=== PATIENT | female | born 1940 | race Caucasian/White ===

== ENCOUNTER 2019-12-25 15:28 | Inpatient (IN) | payer OTHER ==
[~2019-12-25] VITALS: Ht 154.9 cm; Wt 66.0 kg
[~2019-12-25 15:28] MED LIST: AML5T PO; DILAUDID PUMP; ESCI5TAB PO; LEVO500T21 PO; LORICET PO; TEMA15CA91 PO; TRAM50TA2 PO; XANAX PO
[2019-12-25] MEDS ORDERED: SODIUM CHLORIDE 0.9% 500 ML IVB ONE (15:56)
[2019-12-25] MEDS ORDERED: MORPHINE SULFATE 4 MG/ML SYR/VIAL IV ONE (16:00)
[2019-12-25] MEDS ORDERED: ONDANSETRON HCL 4 MG/2 ML VIAL IV ONE (16:00)
[2019-12-25 16:24] LABS: Urine Bacteria FEW /hpf (None Seen); Urine Blood Negative /uL (Negative); Urine Hyaline Cast FEW /lpf (0 - 2); Urine Mucus FEW (None Seen); Urine Specific Gravity 1.028 (1.001-1.035); Urine WBC 2 /hpf (0 - 5)
[2019-12-25 16:26] LABS: Basophils # (auto) 0 10 ^3/uL (0-0.2); Basophils % (auto) 0.5 % (0.0-2.0); Eosinophils # (auto) 0.1 10 ^3/uL (0-0.8); Eosinophils % (auto) 1.3 % (0.0-7.0); Hematocrit 41.1 % (36.0-46.0); Hemoglobin 13.9 g/dL (12.2-16.2); Lymphocytes # (auto) 2.3 10 ^3/uL (0.4-5.4); Mean Corpuscular Hemoglobin 30.1 pg (28.0-32.0); Mean Corpuscular Hgb Conc. 33.8 g/dL (32.0-36.0); Mean Corpuscular Volume 89.1 fL (80.0-100.0); Monocytes # (auto) 0.5 10 ^3/uL (0-1.3); Monocytes % (auto) 5.5 % (0.0-12.0); Neutrophils # (auto) 5.6 10 ^3/uL (1.6-8.6); Neutrophils % (auto) 65.7 % (37.0-80.0); Nucleated Red Blood Cells % 0.1 %; Platelet Count (auto) 221 10^3/uL (140-450); Red Blood Cells 4.61 10^6/uL (4.0-5.20); Red Cell Distribution Width 16.1 % (11.8-14.3); White Blood Cell 8.6 10^3/uL (4.4-10.8)
[2019-12-25 16:36] LABS: Albumin 3.8 g/dL (3.4-5.0); Calcium 8.7 mg/dL (8.5-10.1); Potassium 4.2 mmol/L (3.5-5.1)
[2019-12-25 16:41] LABS: Bilirubin, Total 0.3 mg/dL (0.2-1.0); Total Protein 7.3 g/dL (6.4-8.2)
[2019-12-25] MEDS ORDERED: ONDANSETRON HCL 4 MG/2 ML VIAL IV PRN (23:15)
[2019-12-25] MEDS ORDERED: TEMAZEPAM 15 MG CAP PO PRN (23:15)
[2019-12-25] MEDS ORDERED: cloNIDine HCL 0.1 MG TAB PO PRN (23:15)
[2019-12-25] MEDS ORDERED: ACETAMINOPHEN 325 MG TAB PO PRN (23:15)
[2019-12-25 23:44] VITALS: BP 123/59
--- NOTE | 2019-12-25 23:44 | NUR ---
MS admit from [facility] Or[facility] admitted to tele/MS. Patient oriented to DIOGENES CASTLE primary RN, unit, room, bed, and unit policies regarding patient care and visiting hours. Patient weighed by bedscale and encouraged to call if they need something. All questions and concerns addressed, patient verbalized understanding. Bed in lowest locked position, safety precautions in place, call light within reach. Will continue to monitor. Note: Signed: 12/26/19 at 0446 by DIOGENES CASTLE SN <Co-Signature Required> Co-Signed: 12/26/19 at 0446 by Claudia Anderson RN RN
[2019-12-26] VITALS: BP 123/59
[2019-12-26] MEDS ORDERED: POTA10TA51 PO (01:12)
[2019-12-26] MEDS ORDERED: METF-370 PO (01:12)
[2019-12-26] MEDS ORDERED: PERCOT PO (01:12)
[2019-12-26] MEDS ORDERED: SERT-274 PO (01:12)
[2019-12-26] MEDS ORDERED: LISI-648 PO (01:12)
[2019-12-26] MEDS ORDERED: GABA300C10 PO (01:12)
[2019-12-26] MEDS ORDERED: ZINC220C8 PO (01:12)
[2019-12-26] MEDS ORDERED: MULT-1018 PO (01:12)
[2019-12-26] MEDS ORDERED: BACL10TA PO (01:12)
[2019-12-26] MEDS: HYDROcodone-ACET 5/325MG TAB PO PRN ×3 (03:41→14:09)
[2019-12-26 05:00] VITALS: BP 104/47
[2019-12-26 05:44] LABS: Basophils # (auto) 0.1 10 ^3/uL (0-0.2); Basophils % (auto) 0.7 % (0.0-2.0); Eosinophils # (auto) 0.1 10 ^3/uL (0-0.8); Eosinophils % (auto) 1.5 % (0.0-7.0); Hematocrit 36.7 % (36.0-46.0); Hemoglobin 12.1 g/dL (12.2-16.2); Lymphocytes # (auto) 2.1 10 ^3/uL (0.4-5.4); Mean Corpuscular Hemoglobin 29.9 pg (28.0-32.0); Mean Corpuscular Hgb Conc. 33.1 g/dL (32.0-36.0); Mean Corpuscular Volume 90.3 fL (80.0-100.0); Monocytes # (auto) 0.5 10 ^3/uL (0-1.3); Monocytes % (auto) 6.7 % (0.0-12.0); Neutrophils # (auto) 4.7 10 ^3/uL (1.6-8.6); Neutrophils % (auto) 63.1 % (37.0-80.0); Nucleated Red Blood Cells % 0.1 %; Platelet Count (auto) 180 10^3/uL (140-450); Red Blood Cells 4.06 10^6/uL (4.0-5.20); Red Cell Distribution Width 16.7 % (11.8-14.3); White Blood Cell 7.4 10^3/uL (4.4-10.8)
[2019-12-26 06:30] LABS: BUN/Creatinine Ratio 27.3; Calcium 8.2 mg/dL (8.5-10.1); Potassium 3.9 mmol/L (3.5-5.1)
[2019-12-26] MEDS: SODIUM CHLORIDE 0.9% 1,000 ML IV SCH ×2 (07:00→12:53)
[2019-12-26 08:57] VITALS: BP 140/64
[2019-12-26] MEDS: FAMOTIDINE 20 MG TAB PO SCH ×2 (10:00→22:00)
--- NOTE | 2019-12-26 12:10 | NUR ---
transported to radiology via wheel chair no distress noted.
--- NOTE | 2019-12-26 12:30 | NUR ---
RETURNED FROM RADIOLOGY. NO DISTRESS.
[2019-12-26 13:00] VITALS: BP 157/75
--- NOTE | 2019-12-26 16:23 | NUR ---
ss consult Per ss consult advanced directive information. Patient has been provided with advanced directive. Addendum: 12/27/19 at 1623 by Kira ROSENBAUM Amended: Links added.
--- NOTE | 2019-12-26 16:30 | NUR ---
PATIENT SIGNED AMA TO SMOKE.
[2019-12-26 16:46] VITALS: BP 141/73
[2019-12-26] MEDS: OXYCODONE W/ ACETAMINOPHEN 5/325MG TABLET PO PRN ×2 (18:45→22:46)
[2019-12-26 22:00] VITALS: BP 148/72
[2019-12-26] MEDS: LIDOCAINE HCL 2% TOP JELLY 5ML TOP SCH (22:22)
[2019-12-27] MEDS: SODIUM CHLORIDE 0.9% 1,000 ML IV SCH (02:27)
[2019-12-27 05:00] VITALS: BP 165/81
[2019-12-27] MEDS: LIDOCAINE HCL 2% TOP JELLY 5ML TOP SCH (05:32)
[2019-12-27] MEDS: OXYCODONE W/ ACETAMINOPHEN 5/325MG TABLET PO PRN ×2 (06:26→10:30)
[2019-12-27 06:42] LABS: Basophils # (auto) 0.1 10 ^3/uL (0-0.2); Basophils % (auto) 0.9 % (0.0-2.0); Eosinophils # (auto) 0.1 10 ^3/uL (0-0.8); Eosinophils % (auto) 1.3 % (0.0-7.0); Hematocrit 39.1 % (36.0-46.0); Hemoglobin 13.1 g/dL (12.2-16.2); Lymphocytes # (auto) 1.3 10 ^3/uL (0.4-5.4); Lymphocytes % (auto) 21.5 % (10.0-50.0); Mean Corpuscular Hemoglobin 29.8 pg (28.0-32.0); Mean Corpuscular Hgb Conc. 33.6 g/dL (32.0-36.0); Mean Corpuscular Volume 88.9 fL (80.0-100.0); Monocytes # (auto) 0.4 10 ^3/uL (0-1.3); Monocytes % (auto) 5.8 % (0.0-12.0); Neutrophils # (auto) 4.3 10 ^3/uL (1.6-8.6); Neutrophils % (auto) 70.5 % (37.0-80.0); Nucleated Red Blood Cells % 0.1 %; Platelet Count (auto) 186 10^3/uL (140-450); Red Blood Cells 4.39 10^6/uL (4.0-5.20); Red Cell Distribution Width 16.1 % (11.8-14.3); White Blood Cell 6.1 10^3/uL (4.4-10.8)
[2019-12-27 06:58] LABS: Albumin 3.6 g/dL (3.4-5.0); Calcium 9.2 mg/dL (8.5-10.1); Potassium 3.8 mmol/L (3.5-5.1)
[2019-12-27 07:03] LABS: Bilirubin, Total 0.6 mg/dL (0.2-1.0); Total Protein 6.9 g/dL (6.4-8.2)
[2019-12-27 08:59] VITALS: BP 146/76
[2019-12-27] MEDS: FAMOTIDINE 20 MG TAB PO SCH (10:00)
[2019-12-27] MEDS ORDERED: GABA300C10 PO (12:16)
[2019-12-27] MEDS ORDERED: [UNRECOGNIZED DRUG - CODE] TOP (12:16)
[2019-12-27 12:47] VITALS: BP 150/75
--- NOTE | 2019-12-27 14:29 | NUR ---
Discharge instructions given as ordered. Encourage to follow up with PMD as instructed. All questions and concerns addressed. Patient verbalized understanding. IV removed with catheter intact, pressure dressing applied. Patient taken to vehicle via wheelchair with all personal belongings, accompanied by staff. No distress noted at time of departure.
== END 2019-12-27 14:20 | disposition home or self-care (01) | DRG 74 ==
LOC: ER 15:28 → OVERFLOW 15:29 → WEST WING 23:37
PROVIDERS: ADMIT Nurse Practitioner; ATTEND Hospitalist
DX: E11.42 Type 2 diabetes mellitus with diabetic polyneuropathy (principal); K83.8 Other specified diseases of biliary tract; I10 Essential (primary) hypertension; F17.210 Nicotine dependence, cigarettes, uncomplicated; F32.9 Major depressive disorder, single episode, unspecified; F41.9 Anxiety disorder, unspecified; G89.4 Chronic pain syndrome; Z82.3 Family history of stroke; Z82.49 Family history of ischemic heart disease and other diseases of the circulatory system; Z90.49 Acquired absence of other specified parts of digestive tract; Z91.041 Radiographic dye allergy status
CPT/HCPCS: 36415; 74176; 74181; 80048; 80053; 81001; 83690; 85025; 93005; G0378; J2405

== ENCOUNTER → 2020-03-25 | Emergency (ER) | payer OTHER ==
[~2020-03-25] VITALS: Ht 154.9 cm; Wt 68.0 kg
[~2020-03-25] MED LIST changes: -AML5T PO; +BACL10TA PO; -ESCI5TAB PO; +GABA300C10 PO; +HYDROcodone-ACET 10/325MG TAB PO ONE; -LEVO500T21 PO; +LISI-648 PO; -LORICET PO; +METF-370 PO; +MULT-1018 PO; +PERCOT PO; +POTA10TA51 PO; +SERT-274 PO; -TEMA15CA91 PO; -TRAM50TA2 PO; -XANAX PO; +ZINC220C8 PO; +[UNRECOGNIZED DRUG - CODE] TOP
[2020-03-25 14:58] VITALS: BP 135/52
[2020-03-25 16:12] LABS: Urine Bacteria FEW /hpf (None Seen); Urine Blood Negative /uL (Negative); Urine Hyaline Cast FEW /lpf (0 - 2); Urine Mucus FEW (None Seen); Urine Specific Gravity 1.023 (1.001-1.035); Urine WBC 4 /hpf (0 - 5)
== END | disposition home or self-care (01) ==
LOC: ER 14:44
DX: N39.0 Urinary tract infection, site not specified (principal); M54.5 Low back pain; F17.210 Nicotine dependence, cigarettes, uncomplicated; I10 Essential (primary) hypertension; F32.9 Major depressive disorder, single episode, unspecified; Z90.49 Acquired absence of other specified parts of digestive tract; Z79.899 Other long term (current) drug therapy
CPT/HCPCS: 70450; 72125; 72131; 81001; 93005

== ENCOUNTER 2020-07-21 11:51 | Inpatient (IN) | payer OTHER ==
[~2020-07-21] VITALS: Ht 154.9 cm; Wt 72.8 kg
[~2020-07-21 11:51] MED LIST changes: -HYDROcodone-ACET 10/325MG TAB PO ONE
[2020-07-21] MEDS ORDERED: SODIUM CHLORIDE 0.9% 1,000 ML IV ONE (12:30)
[2020-07-21 13:16] LABS: Basophils # (auto) 0.1 10 ^3/uL (0-0.2); Basophils % (auto) 1.1 % (0.0-2.0); Eosinophils # (auto) 0.2 10 ^3/uL (0-0.8); Eosinophils % (auto) 1.9 % (0.0-7.0); Hematocrit 38.8 % (36.0-46.0); Hemoglobin 13.1 g/dL (12.2-16.2); Lymphocytes # (auto) 1.7 10 ^3/uL (0.4-5.4); Lymphocytes % (auto) 19.2 % (10.0-50.0); Mean Corpuscular Hemoglobin 31.4 pg (28.0-32.0); Mean Corpuscular Hgb Conc. 33.7 g/dL (32.0-36.0); Mean Corpuscular Volume 93.1 fL (80.0-100.0); Monocytes # (auto) 0.5 10 ^3/uL (0-1.3); Monocytes % (auto) 5.6 % (0.0-12.0); Neutrophils # (auto) 6.3 10 ^3/uL (1.6-8.6); Neutrophils % (auto) 72.2 % (37.0-80.0); Platelet Count (auto) 242 10^3/uL (140-450); Red Blood Cells 4.17 10^6/uL (4.0-5.20); Red Cell Distribution Width 13.7 % (11.8-14.3); White Blood Cell 8.8 10^3/uL (4.4-10.8)
[2020-07-21 13:30] LABS: INR 0.98 (0.9-1.15); Partial Thromboplastin Time 24.9 sec (23.0-31.2)
[2020-07-21 13:39] LABS: Alanine Aminotransferase 16 U/L (13-56); Alkaline Phosphatase 105 U/L (45-117); Anion Gap 5 (5-15); Aspartate Aminotransferase 11 U/L (15-37); BUN/Creatinine Ratio 18.7; Bilirubin, Total 0.1 mg/dL (0.2-1.0); Blood Urea Nitrogen 14 mg/dL (7-18); Calcium 8.7 mg/dL (8.5-10.1); Carbon Dioxide 31 mmol/L (21-32); Chloride 103 mmol/L (98-107); GFR African American 96 mL/min; GFR Non-African American 80 mL/min; Glucose 112 mg/dL (74-106); Sodium 139 mmol/L (136-145)
[2020-07-21 13:40] LABS: Albumin 3.6 g/dL (3.4-5.0)
[2020-07-21] MEDS ORDERED: NALOXONE HCL 1MG/ML 2ML SYRINGE IV ONE (14:30)
[2020-07-21] MEDS ORDERED: DexAMETHasone SOD PHOS 10MG/1ML VIAL INJ IV ONE (17:45)
[2020-07-21] MEDS ORDERED: FUROSEMIDE 40 MG/4 ML VIAL IV ONE (17:45)
[2020-07-21] MEDS ORDERED: cefTRIAXone 1GM/50ML D5W 50 ML IV ONE (17:45)
[2020-07-21 18:00] VITALS: BP 135/63
[2020-07-21] MEDS ORDERED: MORPHINE SULF INJ 2 MG/ML SYRINGE 1ML IV PRN ×3 (19:00)
[2020-07-21] MEDS ORDERED: FUROSEMIDE 20 MG/2 ML VIAL IV ONE (19:00)
[2020-07-21] MEDS ORDERED: NICOTINE 21MG/24 HR TOPICAL PATCH TD ONE (19:00)
[2020-07-21] MEDS ORDERED: NITROGLYCERIN 0.4 MG SL TAB SL PRN (19:00)
[2020-07-21] MEDS ORDERED: HYDROcodone-ACET 5/325MG TAB PO PRN (19:00)
[2020-07-21] MEDS ORDERED: DEXTROSE (50%) 50ML SYRG IV PRN (19:15)
[2020-07-21] MEDS ORDERED: OXYC325T14 PO (19:30)
[2020-07-21] MEDS ORDERED: SERT-160 PO (19:35)
[2020-07-21] MEDS ORDERED: LISI-706 PO (19:41)
[2020-07-21] MEDS ORDERED: MAGN400T21 PO (19:42)
[2020-07-21] MEDS ORDERED: METO25TA93 PO (19:42)
[2020-07-21] MEDS ORDERED: ONDA-144 PO (19:44)
[2020-07-21] MEDS ORDERED: OMEP-260 PO (19:44)
[2020-07-21] MEDS ORDERED: LIDO5DIS21 TOP (19:47)
[2020-07-21] MEDS: methylPREDNISolone SOD SUCC 40 MG/ML VL IV SCH (21:45)
[2020-07-21] MEDS: GABAPENTIN 300 MG CAP PO SCH (21:45)
[2020-07-21] MEDS: InsuLIN REG 1unit/0.01ml Soln (100units/ml) SC SCH (21:46)
[2020-07-21] MEDS: ACCU-CHEK COMFORT CURVE STRIP VI SCH (21:46)
[2020-07-21] MEDS: BUDESONIDE (INHALATION) 0.5 MG/2 ML NEB NEB SCH (22:00)
[2020-07-22] MEDS: ACCU-CHEK COMFORT CURVE STRIP VI SCH ×4 (05:16→23:20)
[2020-07-22] MEDS: InsuLIN REG 1unit/0.01ml Soln (100units/ml) SC SCH ×4 (05:47→22:00)
[2020-07-22] MEDS: GABAPENTIN 300 MG CAP PO SCH ×3 (05:49→23:04)
[2020-07-22 06:34] LABS: Basophils # (auto) 0 10 ^3/uL (0-0.2); Basophils % (auto) 0.7 % (0.0-2.0); Eosinophils # (auto) 0 10 ^3/uL (0-0.8); Hematocrit 41.8 % (36.0-46.0); Hemoglobin 14.3 g/dL (12.2-16.2); Lymphocytes # (auto) 0.8 10 ^3/uL (0.4-5.4); Lymphocytes % (auto) 11.3 % (10.0-50.0); Mean Corpuscular Hemoglobin 31.9 pg (28.0-32.0); Mean Corpuscular Hgb Conc. 34.2 g/dL (32.0-36.0); Mean Corpuscular Volume 93.2 fL (80.0-100.0); Monocytes # (auto) 0.1 10 ^3/uL (0-1.3); Monocytes % (auto) 1.2 % (0.0-12.0); Neutrophils # (auto) 5.8 10 ^3/uL (1.6-8.6); Neutrophils % (auto) 86.8 % (37.0-80.0); Nucleated Red Blood Cells % 0.1 %; Platelet Count (auto) 231 10^3/uL (140-450); Red Blood Cells 4.48 10^6/uL (4.0-5.20); Red Cell Distribution Width 13.6 % (11.8-14.3); White Blood Cell 6.7 10^3/uL (4.4-10.8)
[2020-07-22 07:10] LABS: Potassium 3.8 mmol/L (3.5-5.1)
[2020-07-22 07:15] LABS: BUN/Creatinine Ratio 27.8; Calcium 9.3 mg/dL (8.5-10.1)
[2020-07-22] MEDS: BUDESONIDE (INHALATION) 0.5 MG/2 ML NEB NEB SCH ×2 (07:49→22:00)
[2020-07-22] MEDS: ALBUTEROL SULF 2.5 MG/0.5ML(0.5%) NEB SOLN NEB SCH ×3 (07:49→18:00)
[2020-07-22 08:59] LABS: Urine Bacteria NONE SEEN /hpf (None Seen); Urine Blood Negative /uL (Negative); Urine Budding Yeast OCCASIONAL /hpf (None Seen); Urine Specific Gravity 1.014 (1.001-1.035); Urine WBC 1 /hpf (0 - 5)
[2020-07-22 09:00] LABS: Alcohol, Urine < 3.0 mg/dL (0-10); Amphetamine Screen, Urine NEGATIVE (NEGATIVE); Barbiturate Scree,Urine NEGATIVE (NEGATIVE); Benzodiazephine Screen, Urine POSITIVE (NEGATIVE); Cannabinoid Screen, Urine NEGATIVE (NEGATIVE); Cocaine Screen, Urine NEGATIVE (NEGATIVE); Opiate Scree,Urine NEGATIVE (NEGATIVE); Phencyclidine Screen, Urine NEGATIVE (NEGATIVE)
[2020-07-22] MEDS: cefTRIAXone 1GM/50ML D5W 50 ML IV SCH (09:00)
[2020-07-22] MEDS: OXYCODONE W/ ACETAMINOPHEN 5/325MG TABLET PO PRN (09:05)
[2020-07-22] MEDS: FAMOTIDINE 20 MG TAB PO SCH (09:46)
[2020-07-22] MEDS: LISINOPRIL 10 MG TAB PO SCH (09:46)
[2020-07-22] MEDS: methylPREDNISolone SOD SUCC 40 MG/ML VL IV SCH ×2 (09:46→23:04)
[2020-07-22] MEDS: ENOXAPARIN SOD 40 MG/0.4 ML SYRINGE SC SCH (09:47)
[2020-07-22] MEDS: AZITHROMYCIN 250 MG TAB PO SCH (10:00)
[2020-07-22] MEDS: NICOTINE 21MG/24 HR TOPICAL PATCH TD SCH (10:14)
[2020-07-22] MEDS: AZITHROMYCIN 500MG/ 250ML 250 ML IV SCH (10:15)
[2020-07-22] MEDS: ONDANSETRON HCL 4 MG/2 ML VIAL IV PRN (13:27)
[2020-07-22] MEDS: IPRATROPIUM BROM 0.5 MG/2.5ML INH SOL NEB SCH ×2 (13:52→18:00)
[2020-07-23] MEDS: OXYCODONE W/ ACETAMINOPHEN 5/325MG TABLET PO PRN ×2 (03:27→09:43)
[2020-07-23] MEDS: ALBUTEROL SULF 2.5 MG/0.5ML(0.5%) NEB SOLN NEB SCH ×3 (06:00→19:02)
[2020-07-23] MEDS: IPRATROPIUM BROM 0.5 MG/2.5ML INH SOL NEB SCH ×3 (06:00→19:02)
[2020-07-23] MEDS: GABAPENTIN 300 MG CAP PO SCH ×3 (06:52→21:49)
[2020-07-23] MEDS: InsuLIN REG 1unit/0.01ml Soln (100units/ml) SC SCH ×4 (07:03→22:10)
[2020-07-23] MEDS: ACCU-CHEK COMFORT CURVE STRIP VI SCH ×4 (07:03→21:49)
[2020-07-23] MEDS: BUDESONIDE (INHALATION) 0.5 MG/2 ML NEB NEB SCH ×2 (09:12→23:11)
[2020-07-23] MEDS: cefTRIAXone 1GM/50ML D5W 50 ML IV SCH (09:43)
[2020-07-23] MEDS: FAMOTIDINE 20 MG TAB PO SCH ×2 (09:43→21:49)
[2020-07-23] MEDS: methylPREDNISolone SOD SUCC 40 MG/ML VL IV SCH ×2 (09:43→21:49)
[2020-07-23] MEDS: ENOXAPARIN SOD 40 MG/0.4 ML SYRINGE SC SCH (09:44)
[2020-07-23] MEDS: LISINOPRIL 10 MG TAB PO SCH (09:44)
[2020-07-23] MEDS: NICOTINE 21MG/24 HR TOPICAL PATCH TD SCH (09:44)
[2020-07-23] MEDS: AZITHROMYCIN 250 MG TAB PO SCH (10:00)
[2020-07-23] MEDS: AZITHROMYCIN 500MG/ 250ML 250 ML IV SCH (11:28)
[2020-07-23] MEDS: MORPHINE SULF INJ 2 MG/ML SYRINGE 1ML IV PRN ×2 (12:58→19:55)
[2020-07-23] MEDS: ONDANSETRON HCL 4 MG/2 ML VIAL IV PRN (15:11)
[2020-07-23 16:00] VITALS: BP 135/79
[2020-07-23] MEDS ORDERED: FUROSEMIDE 20 MG/2 ML VIAL IV ONE (18:00)
[2020-07-23 22:00] VITALS: BP 135/76
[2020-07-23] MEDS: guaiFENesin-DM 100/10mg/5ml SYR PO PRN (22:24)
[2020-07-24] MEDS: MORPHINE SULF INJ 2 MG/ML SYRINGE 1ML IV PRN ×2 (02:35→08:02)
[2020-07-24] MEDS: guaiFENesin-DM 100/10mg/5ml SYR PO PRN ×2 (04:26→11:56)
[2020-07-24 06:00] VITALS: BP 152/78
[2020-07-24 06:20] LABS: Basophils # (auto) 0 10 ^3/uL (0-0.2); Basophils % (auto) 0.1 % (0.0-2.0); Eosinophils # (auto) 0 10 ^3/uL (0-0.8); Hematocrit 36.9 % (36.0-46.0); Hemoglobin 12.7 g/dL (12.2-16.2); Lymphocytes # (auto) 0.7 10 ^3/uL (0.4-5.4); Lymphocytes % (auto) 5.3 % (10.0-50.0); Mean Corpuscular Hgb Conc. 34.4 g/dL (32.0-36.0); Monocytes # (auto) 0.2 10 ^3/uL (0-1.3); Monocytes % (auto) 1.8 % (0.0-12.0); Neutrophils # (auto) 12.2 10 ^3/uL (1.6-8.6); Neutrophils % (auto) 92.8 % (37.0-80.0); Platelet Count (auto) 198 10^3/uL (140-450); Red Blood Cells 3.97 10^6/uL (4.0-5.20); Red Cell Distribution Width 13.4 % (11.8-14.3); White Blood Cell 13.2 10^3/uL (4.4-10.8)
[2020-07-24 06:28] LABS: Albumin 3.2 g/dL (3.4-5.0); Calcium 8.8 mg/dL (8.5-10.1); Magnesium 2.2 mg/dL (1.6-2.6); Potassium 4.1 mmol/L (3.5-5.1)
[2020-07-24] MEDS: ACCU-CHEK COMFORT CURVE STRIP VI SCH ×2 (06:32→11:45)
[2020-07-24] MEDS: GABAPENTIN 300 MG CAP PO SCH ×2 (06:32→14:01)
[2020-07-24 06:33] LABS: Bilirubin, Total 0.2 mg/dL (0.2-1.0); Total Protein 6.4 g/dL (6.4-8.2)
[2020-07-24] MEDS: InsuLIN REG 1unit/0.01ml Soln (100units/ml) SC SCH ×2 (06:33→11:30)
[2020-07-24] MEDS: IPRATROPIUM BROM 0.5 MG/2.5ML INH SOL NEB SCH ×2 (07:21→13:58)
[2020-07-24] MEDS: ALBUTEROL SULF 2.5 MG/0.5ML(0.5%) NEB SOLN NEB SCH ×2 (07:21→13:58)
[2020-07-24] MEDS: ONDANSETRON HCL 4 MG/2 ML VIAL IV PRN (08:02)
[2020-07-24] MEDS: cefTRIAXone 1GM/50ML D5W 50 ML IV SCH (09:00)
[2020-07-24] MEDS: methylPREDNISolone SOD SUCC 40 MG/ML VL IV SCH (09:44)
[2020-07-24] MEDS: NICOTINE 21MG/24 HR TOPICAL PATCH TD SCH (09:46)
[2020-07-24] MEDS: LISINOPRIL 10 MG TAB PO SCH (09:46)
[2020-07-24] MEDS: ENOXAPARIN SOD 40 MG/0.4 ML SYRINGE SC SCH (09:46)
[2020-07-24] MEDS: FAMOTIDINE 20 MG TAB PO SCH (09:47)
[2020-07-24] MEDS: AZITHROMYCIN 250 MG TAB PO SCH (09:47)
[2020-07-24] MEDS: OXYCODONE W/ ACETAMINOPHEN 5/325MG TABLET PO PRN (09:50)
[2020-07-24] MEDS: BUDESONIDE (INHALATION) 0.5 MG/2 ML NEB NEB SCH (10:00)
[2020-07-24 10:21] VITALS: BP 145/80
[2020-07-24 12:00] VITALS: BP 144/73
== END 2020-07-24 15:50 | disposition home or self-care (01) | DRG 193 ==
LOC: ER 11:51 → TELE 18:55 → TELE-CENTR 07-23 09:15
PROVIDERS: ADMIT Nurse Practitioner Acute Care; ATTEND Internal Medicine
PROC: 5A09357 Assistance with Respiratory Ventilation, Less than 24 Consecutive Hours, Continuous Positive Airway Pressure (ICD-10-PCS; principal; 2020-07-21)
DX: J18.9 Pneumonia, unspecified organism (principal); J96.01 Acute respiratory failure with hypoxia; J44.1 Chronic obstructive pulmonary disease with (acute) exacerbation; J98.11 Atelectasis; J44.0 Chronic obstructive pulmonary disease with (acute) lower respiratory infection; G89.29 Other chronic pain; Z20.822 Contact with and (suspected) exposure to COVID-19; E11.9 Type 2 diabetes mellitus without complications; I11.0 Hypertensive heart disease with heart failure; F32.9 Major depressive disorder, single episode, unspecified; I50.9 Heart failure, unspecified; F41.9 Anxiety disorder, unspecified; M54.9 Dorsalgia, unspecified; F17.210 Nicotine dependence, cigarettes, uncomplicated; K21.9 Gastro-esophageal reflux disease without esophagitis; Z79.4 Long term (current) use of insulin; Z79.891 Long term (current) use of opiate analgesic; Z86.12 Personal history of poliomyelitis; Z79.899 Other long term (current) drug therapy; Z80.0 Family history of malignant neoplasm of digestive organs; Z82.3 Family history of stroke; Z82.49 Family history of ischemic heart disease and other diseases of the circulatory system; Z91.041 Radiographic dye allergy status; Z90.49 Acquired absence of other specified parts of digestive tract
CPT/HCPCS: 36415; 36600; 70450; 71045; 74176; 80048; 80053; 80307; 81001; 82805; 82962; 83036; 83735; 83880; 84484; 85025; 85379; 85610; 85730; 87426; 87804; 93005; 93306; 93970; 94640; 94660; 99291; G0378; J0696; J1100; J1815; J2405

== ENCOUNTER 2020-09-10 17:13 | Emergency (ER) | payer OTHER ==
[~2020-09-10] VITALS: Ht 154.9 cm; Wt 68.0 kg
[~2020-09-10 17:13] MED LIST changes: -DILAUDID PUMP; +LIDO5DIS21 TOP; -LISI-648 PO; +LISI-706 PO; +MAGN241.4 PO; +METO25TA93 PO; +OMEP-260 PO; +ONDA-144 PO; +OXYC325T14 PO; -PERCOT PO; -POTA10TA51 PO; +SERT-160 PO; -SERT-274 PO; -[UNRECOGNIZED DRUG - CODE] TOP
[2020-09-10 18:22] LABS: Basophils # (auto) 0.1 10 ^3/uL (0-0.2); Basophils % (auto) 0.8 % (0.0-2.0); Eosinophils # (auto) 0.1 10 ^3/uL (0-0.8); Eosinophils % (auto) 0.9 % (0.0-7.0); Hematocrit 41.8 % (36.0-46.0); Hemoglobin 14.3 g/dL (12.2-16.2); Lymphocytes # (auto) 1.7 10 ^3/uL (0.4-5.4); Lymphocytes % (auto) 15.5 % (10.0-50.0); Mean Corpuscular Hemoglobin 31.9 pg (28.0-32.0); Mean Corpuscular Hgb Conc. 34.3 g/dL (32.0-36.0); Monocytes # (auto) 0.5 10 ^3/uL (0-1.3); Monocytes % (auto) 4.9 % (0.0-12.0); Neutrophils # (auto) 8.7 10 ^3/uL (1.6-8.6); Neutrophils % (auto) 77.9 % (37.0-80.0); Platelet Count (auto) 197 10^3/uL (140-450); Red Cell Distribution Width 13.5 % (11.8-14.3); White Blood Cell 11.2 10^3/uL (4.4-10.8)
[2020-09-10 18:39] LABS: Alanine Aminotransferase 9 U/L (13-56); Albumin 3.3 g/dL (3.4-5.0); Anion Gap 9 (5-15); Aspartate Aminotransferase 7 U/L (15-37); BUN/Creatinine Ratio 12.7; Blood Urea Nitrogen 10 mg/dL (7-18); Calcium 8.4 mg/dL (8.5-10.1); Carbon Dioxide 25 mmol/L (21-32); Chloride 104 mmol/L (98-107); GFR African American 91 mL/min; GFR Non-African American 75 mL/min; Glucose 153 mg/dL (74-106); Magnesium 1.6 mg/dL (1.6-2.6); Potassium 3.2 mmol/L (3.5-5.1); Sodium 138 mmol/L (136-145)
[2020-09-10 18:44] LABS: Alkaline Phosphatase 93 U/L (45-117); Bilirubin, Total 0.3 mg/dL (0.2-1.0); Lactic Acid w/Reflex 3.2 mmol/L (0.4-2.0); Total Protein 6.7 g/dL (6.4-8.2)
[2020-09-10 19:00] LABS: INR 1.01 (0.9-1.15)
[2020-09-10] MEDS ORDERED: LACTATED RINGER'S 500 ML IV ONE (19:15)
[2020-09-10] MEDS ORDERED: POTASSIUM EFFERVESENT TAB 25 MEQ PO ONE (19:15)
[2020-09-10] MEDS ORDERED: LACTATED RINGER'S 1,000 ML IV ONE (19:30)
[2020-09-10] MEDS ORDERED: ACETAMINOPHEN 500 MG TAB PO ONE (21:00)
[2020-09-10 22:00] VITALS: BP 142/72
[2020-09-10 22:38] LABS: Urine Bacteria FEW /hpf (None Seen); Urine Blood Negative /uL (Negative); Urine Mucus FEW (None Seen); Urine Specific Gravity 1.015 (1.001-1.035); Urine WBC 1 /hpf (0 - 5)
== END 2020-09-11 00:54 | disposition home or self-care (01) ==
LOC: ER 17:13
DX: R11.2 Nausea with vomiting, unspecified (principal); R10.9 Unspecified abdominal pain; I10 Essential (primary) hypertension; R06.02 Shortness of breath; F17.210 Nicotine dependence, cigarettes, uncomplicated; Z20.822 Contact with and (suspected) exposure to COVID-19; Z90.49 Acquired absence of other specified parts of digestive tract
CPT/HCPCS: 36415; 71045; 74176; 80053; 81001; 83605; 83735; 83880; 84484; 85025; 85610; 87040; 87426; 93005; 96360; 96361

== ENCOUNTER 2020-11-28 06:50 | Day surgery (SDC) | payer OTHER ==
[~2020-11-28] VITALS: Ht 154.9 cm; Wt 64.0 kg
[~2020-11-28 06:50] MED LIST changes: +ASPI-498 PO; +ATOR20TA50 PO; +FURO20TA3 PO; -LIDO5DIS21 TOP; +LIDO5PAD8 EX; -LISI-706 PO; +LISI-716 PO; -METF-370 PO; +MORP15TA PO; -MULT-1018 PO; +OXYC-963 PO; -OXYC325T14 PO; +POTA-220 PO; -SERT-160 PO; -ZINC220C8 PO
[2020-11-28] MEDS ORDERED: IODIXANOL 320MG/ML 100ML BTL IV ONE (07:21)
[2020-11-28] MEDS ORDERED: LIDOCAINE 2%HCL (LOCAL ANESTH.) INJ 20ML MDV ONE (07:21)
[2020-11-28] MEDS ORDERED: VERAPAMIL 2.5MG/ML INJ 2ML VIAL IV ONE (07:36)
[2020-11-28] MEDS ORDERED: ANGIOMAX 250 MG VIAL IV ONE (07:36)
[2020-11-28] MEDS ORDERED: HEPARIN SODIUM (PORCINE) 5000 UNITS/ML 1ML VIAL ONE (07:36)
[2020-11-28] MEDS ORDERED: SODIUM CHL 0.9% 0 ML ONE (07:37)
[2020-11-28] MEDS ORDERED: methylPREDNISolone SOD SUCC 125 MG/2 ML VL ONE (07:37)
[2020-11-28] MEDS ORDERED: MIDAZOLAM HCL 1MG/1ML-2 ML VIAL ONE (07:37)
[2020-11-28] MEDS ORDERED: diphenhdrAMINE HCL 50 MG/1 ML VL ONE (07:37)
[2020-11-28] MEDS ORDERED: fentaNYL CITRATE 100 MCG/2 ML VL ONE (07:37)
[2020-11-28] MEDS ORDERED: FAMOTIDINE (10MG/ML) 2ML VL IV ONE (07:38)
[2020-11-28] MEDS ORDERED: ACETAMINOPHEN 500 MG TAB PO PRN (08:45)
[2020-11-28] MEDS ORDERED: ONDANSETRON HCL 4 MG/2 ML VIAL IV PRN (08:45)
== END 2020-11-28 11:00 | disposition home or self-care (01) ==
LOC: CATH 06:50
PROVIDERS: ATTEND Internal Medicine Cardiovascular Disease
DX: R94.39 Abnormal result of other cardiovascular function study (principal); E78.5 Hyperlipidemia, unspecified; E11.9 Type 2 diabetes mellitus without complications; I11.0 Hypertensive heart disease with heart failure; E78.00 Pure hypercholesterolemia, unspecified; G89.29 Other chronic pain; F32.9 Major depressive disorder, single episode, unspecified; F41.9 Anxiety disorder, unspecified; F17.200 Nicotine dependence, unspecified, uncomplicated; I25.10 Atherosclerotic heart disease of native coronary artery without angina pectoris; Z20.822 Contact with and (suspected) exposure to COVID-19; Z98.890 Other specified postprocedural states; Z79.899 Other long term (current) drug therapy; Z79.82 Long term (current) use of aspirin; Z90.721 Acquired absence of ovaries, unilateral; Z91.041 Radiographic dye allergy status
CPT/HCPCS: 93458; C1887; C1894; J1200; J1644; J2930; J3010; J3490; Q9967; U0003; 99152; J2250

== ENCOUNTER 2021-01-04 15:22 | Emergency (ER) | payer OTHER ==
[~2021-01-04] VITALS: Ht 154.9 cm; Wt 70.3 kg
[2021-01-04 16:09] LABS: Urine WBC None Seen /hpf (0 - 5)
[2021-01-04 16:09] LABS: Basophils # (auto) 0.1 10 ^3/uL (0-0.2); Basophils % (auto) 0.8 % (0.0-2.0); Eosinophils # (auto) 0.6 10 ^3/uL (0-0.8); Eosinophils % (auto) 6.8 % (0.0-7.0); Hemoglobin 13.3 g/dL (12.2-16.2); Lymphocytes # (auto) 1.9 10 ^3/uL (0.4-5.4); Lymphocytes % (auto) 20.5 % (10.0-50.0); Mean Corpuscular Hemoglobin 31.9 pg (28.0-32.0); Mean Corpuscular Volume 93.7 fL (80.0-100.0); Monocytes # (auto) 0.4 10 ^3/uL (0-1.3); Monocytes % (auto) 4.5 % (0.0-12.0); Neutrophils # (auto) 6.4 10 ^3/uL (1.6-8.6); Neutrophils % (auto) 67.4 % (37.0-80.0); Nucleated Red Blood Cells % 0.1 %; Platelet Count (auto) 179 10^3/uL (140-450); Red Blood Cells 4.16 10^6/uL (4.0-5.20); Red Cell Distribution Width 13.8 % (11.8-14.3); White Blood Cell 9.5 10^3/uL (4.4-10.8)
[2021-01-04 16:21] LABS: Albumin 3.3 g/dL (3.4-5.0); BUN/Creatinine Ratio 9.2; Calcium 8.3 mg/dL (8.5-10.1); Potassium 3.8 mmol/L (3.5-5.1)
[2021-01-04 16:23] LABS: Urine Bacteria FEW /hpf (None Seen); Urine Blood Negative /uL (Negative)
[2021-01-04 16:24] LABS: Bilirubin, Total 0.2 mg/dL (0.2-1.0); Total Protein 6.7 g/dL (6.4-8.2)
[2021-01-04 18:06] LABS: Magnesium 1.8 mg/dL (1.6-2.6)
[2021-01-04] MEDS ORDERED: SODIUM CHLORIDE 0.9% 1,000 ML IV ONE (19:45)
[2021-01-04] MEDS ORDERED: ONDANSETRON HCL 4 MG/2 ML VIAL IV ONE (19:45)
[2021-01-04] MEDS ORDERED: MORPHINE SULF INJ 2 MG/ML SYRINGE 1ML IV ONE (19:45)
[2021-01-05] MEDS ORDERED: MORPHINE SULF INJ 2 MG/ML SYRINGE 1ML IV ONE (02:45)
[2021-01-05 06:01] VITALS: BP 145/60
== END 2021-01-05 06:06 | disposition home or self-care (01) ==
LOC: ER 15:22
DX: R10.84 Generalized abdominal pain (principal); R11.2 Nausea with vomiting, unspecified; F41.9 Anxiety disorder, unspecified; F32.9 Major depressive disorder, single episode, unspecified; I11.0 Hypertensive heart disease with heart failure; I50.9 Heart failure, unspecified; F17.210 Nicotine dependence, cigarettes, uncomplicated; Z88.6 Allergy status to analgesic agent; Z79.82 Long term (current) use of aspirin; Z79.899 Other long term (current) drug therapy; Z90.49 Acquired absence of other specified parts of digestive tract
CPT/HCPCS: 36415; 71045; 74176; 80053; 81001; 83690; 83735; 83880; 84484; 85025; 93005; 96361; 96374; 96375; 96376; 99284; J2270; J2405

== ENCOUNTER 2023-06-10 12:14 | Inpatient (IN) | payer OTHER ==
[~2023-06-10] VITALS: Ht 154.9 cm; Wt 72.7 kg
[~2023-06-10 12:14] MED LIST changes: +GABA-1250 PO; -GABA300C10 PO; -LISI-716 PO; +LISI10TA34 PO; -OMEP-260 PO; +OMEP1CAP70 PO
[2023-06-10 13:33] LABS: Basophils # (auto) 0 10 ^3/uL (0-0.2); Basophils % (auto) 0.6 % (0.0-2.0); Eosinophils # (auto) 0 10 ^3/uL (0-0.8); Eosinophils % (auto) 0.5 % (0.0-7.0); Hematocrit 44.1 % (36.0-46.0); Hemoglobin 14.7 g/dL (12.2-16.2); Lymphocytes # (auto) 0.9 10 ^3/uL (0.4-5.4); Lymphocytes % (auto) 12.5 % (10.0-50.0); Mean Corpuscular Hemoglobin 32.2 pg (28.0-32.0); Mean Corpuscular Hgb Conc. 33.3 g/dL (32.0-36.0); Mean Corpuscular Volume 96.6 fL (80.0-100.0); Monocytes # (auto) 0.4 10 ^3/uL (0-1.3); Monocytes % (auto) 6.5 % (0.0-12.0); Neutrophils # (auto) 5.5 10 ^3/uL (1.6-8.6); Neutrophils % (auto) 79.9 % (37.0-80.0); Red Blood Cells 4.57 10^6/uL (4.0-5.20); Red Cell Distribution Width 15.4 % (11.8-14.3); White Blood Cell 6.9 10^3/uL (4.4-10.8)
[2023-06-10] MEDS ORDERED: FUROSEMIDE 40 MG/4 ML VIAL IV ONE (13:45)
[2023-06-10 13:48] LABS: Alanine Aminotransferase 10 U/L (7-40); Albumin 4.2 g/dL (3.2-4.8); Alkaline Phosphatase 108 U/L (46-116); Anion Gap 4 (5-15); Aspartate Aminotransferase 10 U/L (13-40); BUN/Creatinine Ratio 12.8 (10.0-20.0); Bilirubin, Total 0.4 mg/dL (0.2-1.0); Blood Urea Nitrogen 10 mg/dL (9-23); Carbon Dioxide 33 mmol/L (20-30); Chloride 102 mmol/L (98-107); Glucose 117 mg/dL (74-106); Potassium 3.7 mmol/L (3.5-5.1); Sodium 139 mmol/L (136-145); Total Protein 6.1 g/dL (5.7-8.2)
[2023-06-10 13:49] LABS: INR 1.04 (0.9-1.15); Prothrombin Time 10.9 sec (9.3-11.8)
[2023-06-10] MEDS ORDERED: HYDROcodone-ACET 10/325MG TAB PO ONE (14:45)
[2023-06-10] MEDS ORDERED: methylPREDNISolone SOD SUCC 125 MG/2 ML VL IV ONE (15:15)
[2023-06-10] MEDS ORDERED: ENOXAPARIN SOD 40 MG/0.4 ML SYRINGE SC SCH (15:15)
[2023-06-10 15:40] LABS: Base Excess 3.3 mmol/L (-2.0-2.0)
[2023-06-10 16:09] VITALS: BP 128/84; PULSE 92; RESP 18; TEMP 99.4; O2SAT 92
[2023-06-10 18:00] VITALS: PULSE 64; RESP 16; O2SAT 97
[2023-06-10] MEDS ORDERED: ALBUTEROL MEDNEB 2.5 mg/3ml NEB NEB SCH ×2 (18:00)
[2023-06-10 18:06] VITALS: PULSE 62; RESP 16; O2SAT 99
[2023-06-10 18:10] VITALS: RESP 18; O2SAT 94
[2023-06-10 21:12] LABS: COVID19 ANTIGEN SOFIA FIA NEGATIVE (NEGATIVE); Rapid Influenza A Negative (Negative); Rapid Influenza B Negative (Negative)
[2023-06-10] MEDS ORDERED: IOHEXOL 350 MG/ML 100ML IJ ONE (21:38)
[2023-06-10] MEDS ORDERED: methylPREDNISolone SOD SUCC 125 MG/2 ML VL IV SCH (22:00)
[2023-06-10] MEDS ORDERED: ATORVASTATIN 20 MG TAB PO SCH (22:00)
[2023-06-10] MEDS ORDERED: FUROSEMIDE 20 MG/2 ML VIAL IV SCH (22:00)
[2023-06-10] MEDS ORDERED: ENOXAPARIN SOD 100 MG/1 ML SYRINGE SC SCH (22:00)
[2023-06-10] MEDS ORDERED: HYDROcodone-ACET 5/325MG TAB PO PRN (23:00)
[2023-06-10 23:02] VITALS: BP 137/66; PULSE 65; RESP 17; TEMP 98.1; O2SAT 95
[2023-06-11] MEDS ORDERED: LISINOPRIL 10 MG TAB PO SCH (10:00)
[2023-06-11] MEDS ORDERED: PANTOPRAZOLE 40 MG/10 ML VIAL INJ IV SCH (10:00)
== END 2023-06-11 00:08 | disposition left against medical advice (07) | DRG 291 ==
LOC: EDBD 12:14 → ER 12:14 → TELE 15:12
PROVIDERS: ADMIT Nurse Practitioner Family; ATTEND Nurse Practitioner Family
DX: I11.0 Hypertensive heart disease with heart failure (principal); I50.43 Acute on chronic combined systolic (congestive) and diastolic (congestive) heart failure; J96.01 Acute respiratory failure with hypoxia; F17.210 Nicotine dependence, cigarettes, uncomplicated; F32.A Depression, unspecified; F41.9 Anxiety disorder, unspecified; Z53.29 Procedure and treatment not carried out because of patient's decision for other reasons; Z20.822 Contact with and (suspected) exposure to COVID-19; J44.9 Chronic obstructive pulmonary disease, unspecified; Z80.0 Family history of malignant neoplasm of digestive organs; Z82.3 Family history of stroke; Z82.49 Family history of ischemic heart disease and other diseases of the circulatory system; Z83.3 Family history of diabetes mellitus; Z90.49 Acquired absence of other specified parts of digestive tract; Z88.8 Allergy status to other drugs, medicaments and biological substances
CPT/HCPCS: 36415; 36600; 71045; 80053; 82805; 83880; 84484; 85025; 85379; 85610; 85730; 87426; 87804; 93005; 94640; 99291; G0378

== ENCOUNTER 2024-09-18 02:39 | Inpatient (IN) | payer OTHER ==
[2024-09-18] VITALS (9 sets, daily range): BP systolic 144; BP diastolic 58; PULSE 63–81; RESP 12–26; TEMP 98.2; O2SAT 92–100
[~2024-09-18] VITALS: Ht 154.9 cm; Wt 74.0 kg
[~2024-09-18 02:39] MED LIST changes: +LIDO5PAD12 EX; -LIDO5PAD8 EX
[2024-09-18] MEDS: ALBUTEROL SULF 2.5 MG/0.5ML(0.5%) NEB SOLN NEB ONE (02:45)
[2024-09-18] MEDS: IPRATROPIUM BROM 0.5 MG/2.5ML INH SOL NEB ONE (02:45)
[2024-09-18] MEDS: methylPREDNISolone SOD SUCC 125 MG/2 ML VL IV ONE (03:08)
[2024-09-18] MEDS ORDERED: NITROGLYCERIN 50MG/250ML 250 ML IV ONE (03:15)
--- NOTE | 2024-09-18 03:16 | ED.PDOC ---
SOB-HPI HPI Comments 84-year-old female with a history of CHF, COPD on 4 L home O2, hypertension brought in by EMS from home complaining of shortness of breath of sudden onset about an hour ago. History is limited, as patient is on BiPAP. EMS reports patient had an oxygen saturation in the 70s on room air. She did not respond to an albuterol 2.5 mg with Atrovent 0.5 mg nebulized treatment in the field, so was placed on CPAP for transport with improvement of her oxygen saturation to the 90s. On arrival to the ER, oxygen saturation is 100% on BiPAP. No additional history is obtainable from the patient due to severity. Chief Complaint: Shortness of Breath Time Seen by MD: 02:43 Reviewed notes: Nurses Notes, Rail Technician Notes, Medications, Allergies Information Source: Emergency Med Personnel Mode of Arrival: EMS Severity: Moderate Timing: Hours Duration: Since onset Context: At Rest, Spontaneous Onset Prehospital treatment: 12 Lead EKG, Accucheck, Breathing Tx (DuoNeb), Hospital Cna, C-Pap Past Medical History PAST MEDICAL HISTORY: CHF, COPD, HTN Surgical History: Unobtainable BUSINESS UNIT MANAGER History: Unobtainable Family History Family History: Unobtainable Social History Smoker: Unobtainable Alcohol: Unobtainable Drugs: Unobtainable Lives In: Home Unable to Obtain due to: Other (Comprehensive systems review unobtainable due to severity of symptoms.) All Other Systems: Reviewed and Negative (Comprehensive systems review obtained and negative except for what is stated in the HPI.) Physical Exam General Appearance: Moderate Distress HEENT: PERRL/EOMI Neck: Full Range of Motion, Normal Inspection Respiratory: Accessory Muscle Use, Decreased Breath Sounds, No Accessory Muscle Use, Respiratory Distress, Wheezing Cardiovascular: No Edema, No JVD, Regular Rate/Rhythm Breast Exam: Deferred Gastrointestinal: Non Tender, Soft Genitalia: Deferred Pelvic: Deferred Rectal: Deferred Extremities: Normal range of motion, No pedal edema, Tender (Dorsal aspect bilateral feet) Neurologic: Alert, Other (Moves all extremities. Follows commands. No gross focal deficit.) Cerebellar Function: NOT DONE Reflexes: NOT DONE Skin: Bruises (Dorsal aspect left foot), Dry, Normal Color, Warm Lymphatic: NOT DONE EKG EKG : Comments Sinus rhythm with occasional PACs, rate 75, [place] prolonged at 218, normal QRS interval, QTC prolonged at 483, normal axis, normal QRS, no ST/T changes. Was a procedure done? Was a procedure done?: No Differential Dx Differential Diagnosis: Asthma, Bronchitis, CHF, COPD, Hyperventilation, Panic Attack, Pneumonia, Respiratory Distress, URI X-Ray, Labs, Meds, VS Vital Signs Date Time Temp Pulse Resp B/P (MAP) Pulse Ox O2 Delivery O2 Flow Rate FiO2 09/18/24 04:30 69 19 141/98 09/18/24 04:17 66 120/69 Facial BiPAP Mask 40 09/18/24 04:00 62 09/18/24 04:00 98.9 67 21 148/106 (120) 100 98.9 09/18/24 03:42 124/77 09/18/24 02:54 66 23 100 Bi-Pap+ 100 100 09/18/24 02:53 98.1 66 23 174/84 (114) 100 98.1 09/18/24 02:52 75 09/18/24 02:49 98.2 79 26 195/100 (131) 87 09/18/24 02:45 30 99 Bi-Pap+ 100 100 09/18/24 02:40 78 174/84 Facial BiPAP Mask 100 Lab Test 09/18/24 04:00 09/18/24 03:30 09/18/24 03:15 09/18/24 02:56 Range/Units Troponin I High Sensitivity 7 6 </=34 ng/L Urine Color Light-yellow Yellow Urine Clarity Clear Clear Urine pH 5.5 5.0-9.0 Urine Specific [place] 1.010 1.001-1.035 Urine Protein Negative Negative Urine Ketones Negative Negative Urine Blood Negative Negative /uL Urine Nitrite Negative Negative Urine Bilirubin Negative Negative Urine Urobilinogen Normal Negative mg/dL Urine Leukocyte Esterase Negative Negative /uL Urine RBC <1 0 - 4 /hpf Urine Microscopic WBC 0-5 /HPF Urine Squamous Epithelial Cells None seen <5 /hpf Urine Bacteria None seen None Seen /hpf Urine Hyaline Casts Few 0 - 2 /lpf Urine Glucose Normal Normal mg/dL Blood Gas Specimen Type Arterial Blood Gas Sample Site Right radial Blood Gas Patient Temperature 37.0 Arterial Blood Date Drawn [id number] Arterial Blood pH 7.234 *L 7.350-7.450 Arterial Blood Partial Pressure CO2 72.6 *H 32.0-45.0 mmHg Arterial Blood Partial Pressure O2 324.2 *H 83.0-108.0 mmHg Arterial Blood HCO3 30.0 H 21.0-28.0 mmol/L Arterial Blood Oxygen Saturation 99.2 H 94.0-98.0 % Arterial Blood Base Excess 0.5 -2.0-3.0 mmol/L Arterial Blood Oxyhemoglobin 94.2 94.0-98.0 % Arterial Blood Carboxyhemoglobin 4.6 H 0.5-1.5 % Arterial Blood Methemoglobin 0.4 0.0-1.5 % Pablito Test Yes Blood Gas Total Hemoglobin 13.90 12.0-16.0 g/dL Blood Gas Set Respiration Rate 12.0 Blood Gas Modality Mask - bipap Blood Gas Spontaneous Rate 25 FiO2 % 100.0 Blood Gas Spontaneous Tidal Volume 374 Blood Gas EPAP 7 Blood Gas IPAP 14 Blood Gas Critical Value Read Back Yes Blood Gas Notified Whom Md rosetta wood Blood Gas Notified Time [id number] Blood Gas Notified By Tanker Driver arnulfo luque White Blood Count 16.2 H 4.4-10.8 10^3/uL Red Blood Count 4.05 4.0-5.20 10^6/uL Hemoglobin 13.1 12.2-16.2 g/dL Hematocrit 38.6 36.0-46.0 % Mean Corpuscular Volume 95.4 80.0-100.0 fL Mean Corpuscular Hemoglobin 32.4 H 28.0-32.0 pg Mean Corpuscular Hemoglobin Concent 33.9 32.0-36.0 g/dL Red Cell Distribution Width 13.8 11.8-14.3 % Platelet Count 232 140-450 10^3/uL Mean Platelet Volume 8.6 6.9-10.8 fL Neutrophils (%) (Auto) 81.9 H 37.0-80.0 % Lymphocytes (%) (Auto) 12.5 10.0-50.0 % Monocytes (%) (Auto) 4.6 0.0-12.0 % Eosinophils (%) (Auto) 0.5 0.0-7.0 % Basophils (%) (Auto) 0.5 0.0-2.0 % Neutrophils # (Auto) 13.3 H 1.6-8.6 10 ^3/uL Lymphocytes # (Auto) 2.0 0.4-5.4 10 ^3/uL Monocytes # (Auto) 0.7 0-1.3 10 ^3/uL Eosinophils # (Auto) 0.1 0-0.8 10 ^3/uL Basophils # (Auto) 0.1 0-0.2 10 ^3/uL Nucleated Red Blood Cells 0.0 % Sodium Level 139 136-145 mmol/L Potassium Level 3.6 3.5-5.1 mmol/L Chloride Level 102 98-107 mmol/L Carbon Dioxide Level 31 20-31 mmol/L Anion Gap 6 5-15 Blood Urea Nitrogen 12 9-23 mg/dL Creatinine 0.80 0.550-1.02 mg/dL Glomerular Filtration Rate Calc 74 >90 mL/min BUN/Creatinine Ratio 15.0 10.0-20.0 Serum Glucose 180 H 74-106 mg/dL Calcium Level 9.6 8.7-10.4 mg/dL B-Type Natriuretic Peptide 713.51 0-100 pg/mL Current Medications Medications (Trade) Dose Ordered Sig/Cris Route Start Time Stop Time Status Last Admin Albuterol (Ventolin Medneb) 10 mg ONCE ONCE NEB 09/18/24 02:45 09/18/24 02:47 DC 09/18/24 02:45 Methylprednisolone Sodium Succinate (Solu Medrol) 125 mg ONCE ONCE IV 09/18/24 02:45 09/18/24 02:47 DC 09/18/24 03:08 Ipratropium [place] (Atrovent Medneb) 1 mg ONCE ONCE NEB 09/18/24 02:45 09/18/24 02:54 DC 09/18/24 02:45 Furosemide (Lasix Injection) 40 mg ONCE ONCE IV 09/18/24 03:30 09/18/24 03:31 DC 09/18/24 03:42 Morphine Sulfate 2 mg ONCE ONCE IV 09/18/24 04:15 09/18/24 04:16 DC 09/18/24 04:30 Ondansetron HCl (Zofran) 4 mg ONCE ONCE IV 09/18/24 04:15 09/18/24 04:16 DC 09/18/24 04:30 PROCEDURE(s): CXRP - CHEST PORTABLE REASON: sob ORDER NUMBER(s): [id number], ACCESSION NUMBER(s): [id number] CHEST RADIOGRAPH Indication: sob Technique: Single frontal view of the chest was obtained Comparison: None IMPRESSION: The cardiomediastinal silhouette is enlarged. There is interstitial prominence and coarsened interstitial markings. Mild pulmonary vascular congestion. No sizable effusion or pneumothorax. No discrete focal airspace opacity. X-Ray, Labs, Meds, VS Comment 84-year-old female with a history of CHF, COPD on 4 L home O2, hypertension brought in by EMS from home complaining of shortness of breath of sudden onset about an hour ago. Vitals remarkable for BP 195/100 Exam remarkable for respiratory distress, accessory muscle use, diminished breath sounds, scattered bilateral wheezes Rhythm strip independently interpreted by me: Sinus rhythm with occasional PACs, rate 78, no PVCs. Chest x-ray IMPRESSION: The cardiomediastinal silhouette is enlarged. There is interstitial prominence and coarsened interstitial markings. Mild pulmonary vascular congestion. No sizable effusion or pneumothorax. No discrete focal airspace opacity. CBC remarkable for WBC 16.2, basic metabolic panel remarkable for glucose 180, BNP 713.51, troponin negative Patient treated with the following in the ED: Patient placed on BiPAP, Albuterol 10 mg nebulized in-line treatment, Solu- Medrol 125 mg IV, Nitro-Bid 1 in applied to chest wall, Lasix 40 mg IV On re-evaluation, patient states she is feeling better breathing singh. She does state that she fell 2 days ago and is having bilateral foot pain. Bilateral malka t X-rays were ordered. Plan is to admit the patient for respiratory support and diuresis. Time of 1ST Reevaluation: 03:13 Reevaluation 1ST: Unchanged Patient Education/Counseling: Diagnosis, Treatment Family Education/Counseling: No Family Present Departure 1 Departure Time of Disposition: 03:21 Impression: Primary Impression: [id number] respiratory failure Qualified Codes: J96.20 - Acute and chronic respiratory failure, unspecified whether with hypoxia or hypercapnia Additional Impressions: Acute exacerbation of CHF (congestive heart failure) Qualified Codes: I50.9 - Heart failure, unspecified Acute exacerbation of chronic obstructive pulmonary disease (COPD) Disposition: ADMITTED INPATIENT Admit to: [facility] Condition: Guarded Critical Care Note Critical Care Time?: Yes (45 min-critical care time only) Critical care comment: Critical care time including multiple bedside re-evaluations, review of lab and imaging studies, and discussion of the case with the admitting provider. Patient is high risk for hemodynamic and/or respiratory decompensation. Stability Stability form required: No Heart Score Heart Score: Heart Score Response (Comments) Value History N/A 0 EKG N/A 0 Age N/A 0 Risk Factors N/A 0 Troponin N/A 0 Total 0 I personally scribed for HERBERT LÓPEZ MD ([email or web address]) on 09/18/24 at 03:49. Electronically submitted by George Beltran ([email or web address]). HERBERT LÓPEZ MD Sep 18, 2024 03:16
--- NOTE | 2024-09-18 03:23 | DVH ---
CHEST RADIOGRAPH Indication: sob Technique: Single frontal view of the chest was obtained Comparison: None IMPRESSION: The cardiomediastinal silhouette is enlarged. There is interstitial prominence and coarsened intersti tial markings. Mild pulmonary vascular congestion. No sizable effusion or pneumothorax. No discrete focal airspace opacity.
[2024-09-18 03:33] LABS: Chloride 102 mmol/L (98-107); Potassium 3.6 mmol/L (3.5-5.1); Sodium 139 mmol/L (136-145)
[2024-09-18 03:34] LABS: Anion Gap 6 (5-15); Calcium 9.6 mg/dL (8.7-10.4); Carbon Dioxide 31 mmol/L (20-31)
[2024-09-18 03:39] LABS: Blood Urea Nitrogen 12 mg/dL (9-23)
[2024-09-18 03:40] LABS: Urine Bacteria None Seen /hpf (None Seen)
[2024-09-18] MEDS: FUROSEMIDE 40 MG/4 ML VIAL IV ONE (03:42)
[2024-09-18] MEDS: NITROGLYCERIN 2% OINT 1GM PKG TD ONE (03:43)
[2024-09-18 03:49] LABS: Basophils # (auto) 0.1 10 ^3/uL (0-0.2); Basophils % (auto) 0.5 % (0.0-2.0); Eosinophils # (auto) 0.1 10 ^3/uL (0-0.8); Eosinophils % (auto) 0.5 % (0.0-7.0); Hematocrit 38.6 % (36.0-46.0); Hemoglobin 13.1 g/dL (12.2-16.2); Lymphocytes % (auto) 12.5 % (10.0-50.0); Mean Corpuscular Hemoglobin 32.4 pg (28.0-32.0); Mean Corpuscular Hgb Conc. 33.9 g/dL (32.0-36.0); Mean Corpuscular Volume 95.4 fL (80.0-100.0); Monocytes # (auto) 0.7 10 ^3/uL (0-1.3); Monocytes % (auto) 4.6 % (0.0-12.0); Neutrophils # (auto) 13.3 10 ^3/uL (1.6-8.6); Neutrophils % (auto) 81.9 % (37.0-80.0); Platelet Count (auto) 232 10^3/uL (140-450); Red Blood Cells 4.05 10^6/uL (4.0-5.20); Red Cell Distribution Width 13.8 % (11.8-14.3); White Blood Cell 16.2 10^3/uL (4.4-10.8)
[2024-09-18 03:52] LABS: Urine Blood Negative /uL (Negative); Urine Clarity Clear (Clear); Urine Color Light-Yellow (Yellow); Urine Hyaline Cast FEW /lpf (0 - 2); Urine Protein, UAD Negative (Negative); Urine Squamous Epithelial Cell None Seen /hpf (<5); Urine Urobilinogen Normal (Negative); Urine pH 5.5 (5.0-9.0)
[2024-09-18 03:53] LABS: Glucose 180 mg/dL (74-106)
[2024-09-18 04:24] LABS: Base Excess 0.5 mmol/L (-2.0-3.0)
[2024-09-18] MEDS: ONDANSETRON HCL 4 MG/2 ML VIAL IV ONE (04:30)
[2024-09-18] MEDS: MORPHINE SULFATE INJ 2 MG/ml SYRG IV ONE (04:30)
--- NOTE | 2024-09-18 05:55 | DVH ---
EXAM: XR Left Foot, 2 Views CLINICAL INDICATION: fall, pain TECHNIQUE: Frontal and lateral views of the left foot. COMPARISON: None FINDINGS: BONES/JOINTS: Unremarkable. No acute fracture. No dislocation. SOFT TISSUES: Unremarkable. No radiopaque foreign body. OTHER FINDINGS: . None. IMPRESSION: No acute fracture.
--- NOTE | 2024-09-18 05:55 | DVH ---
EXAM: XR Right Foot, 2 Views CLINICAL INDICATION: fall, pain TECHNIQUE: Frontal and lateral views of the right foot. COMPARISON: None FINDINGS: BONES/JOINTS: Apparent lucency at the base of the 3rd metatarsal could be a nondisplaced fracture. Further evaluation with CT is recommended. No dislocation. SOFT TISSUES: Soft tissue swelling.. No radiopaque foreign body. OTHER FINDINGS: . IMPRESSION: Apparent lucency at the base of the 3rd metatarsal could be a nondisplaced fracture. Further evalua tion with CT is recommended.
--- NOTE | 2024-09-18 06:13 | DVHHPRES ---
History of Present Illness Resident Creating Document: YEYO PEDROZA History of Present Illness This is an 84-year-old female with past medical history of hypertension, CHF, COPD on 4 L of oxygen at home, presented to the ED brought by EMS due to shortness of breath sudden onset 1 hour before coming to the ED. my examination the patient was already on BiPAP in the following ventilatory settings: IPAP 16, EPAP 7, RR 12, FiO2 of 40% saturating 91%. Patient was sleepy unable to provide a clear history and unable to talk due to BiPAP. Patient just stated that lived with her daughter but does not recall phone number and there is no close contact on file yet. Per EMS reports the patient was saturating 70% on room air when found on seen. Initially received albuterol, ipratropium med nebs was initially placed on CPAP while brought to the ED, where her saturation improved in the 90s. On admission, initial CBC showed a WBC of 16.2, hemoglobin of 13.1, BNP was grossly unremarkable, troponins came back negative and BNP was significantly elevated at 713.51. On my examination patient has bilateral crackles on both lung haney but there is no peripheral edema or other signs congestion. Initial chest x-ray show enlarged cardiac silhouette with moderate pulmonary vascular congestion. Blood pressure at this time is in the lower side. We will admit the patient for further assessment and management of CHF exacerbation/COPD exacerbation. Cardiovascular: CHF, HTN Pulmonary: COPD Past Surgical History: None Family History: None Smoke: # pack years ALCOHOL: none Drugs: None Lives: with Family Domestic Violence: Neg Review of Systems Constitutional: No: Fever, Chills, Sweats, Weakness, Malaise, Other Eyes: No: Pain, Vision change, Conjunctivae inflammation, Eyelid inflammation, Other, Redness ENT: No: Ear pain, Ear discharge, Nose pain, Nose discharge, Nose congestion, Mouth pain, Mouth swelling, Throat pain, Throat swelling, Other Respiratory: Shortness of breath, SOB with excertion, Other (crackles); No: Cough, Dry, Wheezing, Hemoptysis, Pleuritic Pain, Sputum, Wheezing Cardiovascular: No: Chest Pain, Palpitations, Orthopnea, Paroxysmal Noc. Dyspnea, Edema, Lt Headedness, Other Gastrointestinal: No: Nausea, Vomiting, Abdominal Pain, Diarrhea, Constipation, Melena, Hematochezia, Other Genitourinary: No Dysuria, No Frequency, No Incontinence, No Hematuria, No Retention, No Other Musculoskeletal: No: other, neck pain, shoulder pain, arm pain, back pain, hand pain, leg pain, foot pain Skin: No: Rash, Lesions, Jaundice, Bruising, Other Neurological: Weakness; No: Numbness, Incoordination, Change in speech, Confusion, Seizures, Other Allergies: Coded Allergies: NO KNOWN ALLERGIES (Unverified , 09/18/24) Exam Vital Signs Vital Signs Date Time Temp Pulse Resp B/P (MAP) Pulse Ox O2 Delivery O2 Flow Rate FiO2 09/18/24 05:00 62 11 147/67 09/18/24 04:17 Facial BiPAP Mask 40 09/18/24 04:00 98.9 100 98.9 General Appearance: Alert, mild distress, Other (Is alert but not oriented in place or time) HEENT: Atraumatic, PERRLA, EOMI, Mucous membr. moist/pink Respiratory: Other (There is bilateral crackles on both lung haney) Cardiovascular: Normal S1, Normal S2, No murmurs, Other (irregular heart rate and rythm) Abdominal: Normal bowel sounds, Soft, No tenderness, No hepatospenomegaly, No masses Extremities: No clubbing, No cyanosis, No edema, Normal pulses, No tenderness/swelling Skin: No rashes, No breakdown, No significant lesion Neuro: Other (Unable to perform at this time due to patient sleepy on BiPAP) Psych/Mental Status: Mental status NL Labs/Xrays Labs Test 09/18/24 04:00 09/18/24 03:30 09/18/24 03:15 09/18/24 02:56 Range/Units Troponin I High Sensitivity 7 </=34 ng/L Urine Color Light-yellow Yellow Urine Clarity Clear Clear Urine pH 5.5 5.0-9.0 Urine Specific [place] 1.010 1.001-1.035 Urine Protein Negative Negative Urine Ketones Negative Negative Urine Blood Negative Negative /uL Urine Nitrite Negative Negative Urine Bilirubin Negative Negative Urine Urobilinogen Normal Negative mg/dL Urine Leukocyte Esterase Negative Negative /uL Urine RBC <1 0 - 4 /hpf Urine Microscopic WBC 0-5 /HPF Urine Squamous Epithelial Cells None seen <5 /hpf Urine Bacteria None seen None Seen /hpf Urine Hyaline Casts Few 0 - 2 /lpf Urine Glucose Normal Normal mg/dL Blood Gas Specimen Type Arterial Blood Gas Sample Site Right radial Blood Gas Patient Temperature 37.0 Arterial Blood Date Drawn [id number] Arterial Blood pH 7.234 *L 7.350-7.450 Arterial Blood Partial Pressure CO2 72.6 *H 32.0-45.0 mmHg Arterial Blood Partial Pressure O2 324.2 *H 83.0-108.0 mmHg Arterial Blood HCO3 30.0 H 21.0-28.0 mmol/L Arterial Blood Oxygen Saturation 99.2 H 94.0-98.0 % Arterial Blood Base Excess 0.5 -2.0-3.0 mmol/L Arterial Blood Oxyhemoglobin 94.2 94.0-98.0 % Arterial Blood Carboxyhemoglobin 4.6 H 0.5-1.5 % Arterial Blood Methemoglobin 0.4 0.0-1.5 % Pablito Test Yes Blood Gas Total Hemoglobin 13.90 12.0-16.0 g/dL Blood Gas Set Respiration Rate 12.0 Blood Gas Modality Mask - bipap Blood Gas Spontaneous Rate 25 FiO2 % 100.0 Blood Gas Spontaneous Tidal Volume 374 Blood Gas EPAP 7 Blood Gas IPAP 14 Blood Gas Critical Value Read Back Yes Blood Gas Notified Whom Md rosetta wood Blood Gas Notified Time [id number] Blood Gas Notified By Skid Worker arnulfo luque White Blood Count 16.2 H 4.4-10.8 10^3/uL Red Blood Count 4.05 4.0-5.20 10^6/uL Hemoglobin 13.1 12.2-16.2 g/dL Hematocrit 38.6 36.0-46.0 % Mean Corpuscular Volume 95.4 80.0-100.0 fL Mean Corpuscular Hemoglobin 32.4 H 28.0-32.0 pg Mean Corpuscular Hemoglobin Concent 33.9 32.0-36.0 g/dL Red Cell Distribution Width 13.8 11.8-14.3 % Platelet Count 232 140-450 10^3/uL Mean Platelet Volume 8.6 6.9-10.8 fL Neutrophils (%) (Auto) 81.9 H 37.0-80.0 % Lymphocytes (%) (Auto) 12.5 10.0-50.0 % Monocytes (%) (Auto) 4.6 0.0-12.0 % Eosinophils (%) (Auto) 0.5 0.0-7.0 % Basophils (%) (Auto) 0.5 0.0-2.0 % Neutrophils # (Auto) 13.3 H 1.6-8.6 10 ^3/uL Lymphocytes # (Auto) 2.0 0.4-5.4 10 ^3/uL Monocytes # (Auto) 0.7 0-1.3 10 ^3/uL Eosinophils # (Auto) 0.1 0-0.8 10 ^3/uL Basophils # (Auto) 0.1 0-0.2 10 ^3/uL Nucleated Red Blood Cells 0.0 % Sodium Level 139 136-145 mmol/L Potassium Level 3.6 3.5-5.1 mmol/L Chloride Level 102 98-107 mmol/L Carbon Dioxide Level 31 20-31 mmol/L Anion Gap 6 5-15 Blood Urea Nitrogen 12 9-23 mg/dL Creatinine 0.80 0.550-1.02 mg/dL Glomerular Filtration Rate Calc 74 >90 mL/min BUN/Creatinine Ratio 15.0 10.0-20.0 Serum Glucose 180 H 74-106 mg/dL Calcium Level 9.6 8.7-10.4 mg/dL B-Type Natriuretic Peptide 713.51 0-100 pg/mL Assessment/Plan Assessment/Plan Assessment/plan Acute hypercapnic respiratory failure likely due to CHF exacerbation Possible COPD exacerbation Possible bacterial gram +/- pneumonia -patient uses 4 L of oxygen at home as a baseline -Currently on BIPAP IPAP 16, EPAP seven, RR 12, FiO2 40% saturating 91% -initial ABG showed pH of 7.23, pCO2 of 72.6, PaO2 of 324.2, HC03 of 30.0 consistent with respiratory acidosis with metabolic alkalosis -initial chest x-ray showed enlarged cardiac silhouette with moderate vascular congestion -BNP is significantly elevated at 713.51 -Trops came back negative -initial WBC is 16.2 -start IV ceftriaxone -start IV azithromycin -Start methylprednisolone 40mg IV daily -Ordered Echocardiogram -EKG showed sinus arrythmia -Start furosemide 20mg IV BID -Acetaminophen and ketorolac for pain modulation -Hold heart failure meds at this point due to BP running in the lower side, start once BP is more stable and Echo is back -Will order a most recent ABG after couple of hours in BIPAP Possible 3rd metatarsal fracture of right foot -R foot xray showing possible fracture of 3rd metatarsal Hyperglycemia, R/O DM -Ordered HbA1c -Monitor Blood glucose Plan discussed with Dr. Freire Plan discussed with: Patient My Orders Orders - YEYO PEDROZA Procedure Category Date Status Time Admit ADMIT 09/18/24 Transmitted 05:34 Code Status CODE 09/18/24 Transmitted 05:34 Vital Signs [facility] 09/18/24 In Process 05:34 Review Orders With [facility] 09/18/24 In Process Adm.Md 05:34 Notify Md Of Changes [facility] 09/18/24 In Process From Base 05:34 Advance Directive [facility] 09/18/24 In Process 05:34 Patient Condition ORDERS 09/18/24 Transmitted 05:34 Allergies DEDE 09/18/24 In Process 05:34 Urinalysis LAB 09/18/24 Logged 05:36 Drug Screen LAB 09/18/24 Logged 05:36 Covid19 Antigen [place] LAB 09/18/24 Logged Rapid Influenza A&B LAB 09/18/24 Logged 05:36 Vitamin B12 LAB 09/18/24 Logged 05:36 Vitamin D, 25-Hydroxy LAB 09/18/24 Logged 05:36 Thyroid Stimulating LAB 09/18/24 Logged Hormone 05:38 PTPTT LAB 09/18/24 Logged 05:38 Echo 2d Mode Cardiac US 09/18/24 Transmitted DOP 05:39 Date of Service: Sep 18, 2024 Billing Provider: KAL FREIRE MD Common Visit Codes: 60783-PEDPVTW INP/OBS CARE (HIGH) Secondary Visit Codes: 08085-VNAUNLNC CARE PLAN 30 MINUTES YEYO PEDROZA RESIDENT Sep 18, 2024 06:12 KAL FREIRE MD Sep 18, 2024 10:21
[2024-09-18] MEDS: cefTRIAXone 1GM/50ML D5W 50 ML IV SCH (06:39)
[2024-09-18 06:43] LABS: INR 1.01 (0.9-1.15); Partial Thromboplastin Time 27.5 SEC (24.5-34.5); Prothrombin Time 10.7 sec (9.3-11.8)
[2024-09-18] MEDS: AZITHROMYCIN 500MG/ 250ML 250 ML IV SCH (07:02)
[2024-09-18 07:10] LABS: Base Excess 4.7 mmol/L (-2.0-3.0)
--- NOTE | 2024-09-18 07:40 | DVHPNRES ---
Progress Note Objective vital signs Vital Sign Date Time Temp Pulse Resp B/P (MAP) Pulse Ox O2 Delivery O2 Flow Rate FiO2 09/18/24 06:10 63 94 Nasal BiPAP Mask 40 09/18/24 06:00 98.2 11 144/58 (86) 98.2 Total Intake and Output 09/17/24 09/17/24 09/18/24 15:00 23:00 07:00 Intake Total 50 ml Output Total 950 ml Balance -900 ml medications Current Medications Medications Dose Ordered Sig/Cris Route Start Time Stop Time Status Last Admin Dose Admin Azithromycin 250 ml @ 125 mls/hr DAILY IV 09/18/24 07:00 09/18/24 07:02 125 MLS/HR Ceftriaxone Sodium 50 ml @ 100 mls/hr DAILY@0900 IV 09/18/24 06:30 09/18/24 06:39 100 MLS/HR Furosemide 20 mg BID IV 09/18/24 10:00 Acetaminophen 650 mg Q6HP PRN PO 09/18/24 06:15 Ketorolac Tromethamine 15 mg Q6HP PRN IV 09/18/24 06:15 09/23/24 06:14 Methylprednisolone Sodium Succinate 40 mg DAILY IV 09/18/24 14:00 Albuterol 2.5 mg Q4HR NEB 09/18/24 10:00 Ipratropium [place] 0.5 mg Q4HR NEB 09/18/24 10:00 laboratory and microbiology Test 09/18/24 06:06 Range/Units Serum Glucose Pending LEILA MARTINEZ RESIDENT Sep 18, 2024 07:40
[2024-09-18] MEDS: KETOROLAC TROMETH 30 MG/ML 1ML VIAL IV PRN (08:29)
[2024-09-18] MEDS: ACETAMINOPHEN 325 MG TAB PO PRN (08:29)
[2024-09-18 08:46] LABS: Anion Gap 7 (5-15); BUN/Creatinine Ratio 12.5 (10.0-20.0); Blood Urea Nitrogen 11 mg/dL (9-23); Calcium 9.6 mg/dL (8.7-10.4); Chloride 102 mmol/L (98-107); Potassium 3.6 mmol/L (3.5-5.1); Sodium 141 mmol/L (136-145)
[2024-09-18 08:46] LABS: Triglycerides 98 mg/dL (< 150)
[2024-09-18 08:47] LABS: Albumin 4.6 g/dL (3.2-4.8); Bilirubin, Total 0.5 mg/dL (0.2-1.0)
[2024-09-18 08:47] LABS: LDL Cholesterol 86 mg/dL (< 100)
[2024-09-18 08:48] LABS: Cholesterol 152 mg/dL (< 200); HDL Cholesterol 54 mg/dL (40-59)
[2024-09-18 08:49] LABS: Carbon Dioxide 32 mmol/L (20-31)
[2024-09-18 08:50] LABS: Alanine Aminotransferase < 9 U/L (7-40); Aspartate Aminotransferase 8 U/L (13-40); Glucose 143 mg/dL (74-106)
[2024-09-18 08:55] LABS: Basophils # (auto) 0 10 ^3/uL (0-0.2); Basophils % (auto) 0.3 % (0.0-2.0); Eosinophils # (auto) 0 10 ^3/uL (0-0.8); Eosinophils % (auto) 0.1 % (0.0-7.0); Hemoglobin 13.5 g/dL (12.2-16.2); Lymphocytes # (auto) 0.3 10 ^3/uL (0.4-5.4); Mean Corpuscular Hemoglobin 31.8 pg (28.0-32.0); Mean Corpuscular Hgb Conc. 33.6 g/dL (32.0-36.0); Mean Corpuscular Volume 94.7 fL (80.0-100.0); Monocytes # (auto) 0.3 10 ^3/uL (0-1.3); Monocytes % (auto) 2.3 % (0.0-12.0); Neutrophils # (auto) 14.1 10 ^3/uL (1.6-8.6); Neutrophils % (auto) 95.3 % (37.0-80.0); Platelet Count (auto) 220 10^3/uL (140-450); Red Blood Cells 4.23 10^6/uL (4.0-5.20); Red Cell Distribution Width 13.8 % (11.8-14.3); White Blood Cell 14.7 10^3/uL (4.4-10.8)
[2024-09-18] MEDS: IPRATROPIUM BROM 0.5 MG/2.5ML INH SOL NEB SCH (09:00)
[2024-09-18] MEDS: ALBUTEROL SULF 2.5 MG/0.5ML(0.5%) NEB SOLN NEB SCH (09:00)
[2024-09-18] MEDS: CYANOCOBALAMIN (B-12) 1000 MCG/1 ML VIAL IM ONE ×2 (09:30→13:09)
[2024-09-18] MEDS ORDERED: ERGOCALCIFEROL 50,000 UNIT(1.25MG) CAP PO SCH (09:30)
[2024-09-18 10:15] LABS: Alkaline Phosphatase 135 U/L (46-116)
[2024-09-18] MEDS: FUROSEMIDE 20 MG/2 ML VIAL IV SCH (10:24)
--- NOTE | 2024-09-18 10:33 | ECG ---
[facility] Test Date: 2024-09-18 Test Time: 02:52:37 Pat Name: JAMAR ALBRIGHT Department: ED Room: 0219T Gender: F Carbon Brush Maker: JULIANN : 1940 Requested By: HERBERT SIDDIQUI Order Number: [id number] Reading MD: Doyle Mckeon Measurements Intervals [place] Rate: 75 P: -49 GA: 218 QRS: 29 QRSD: 80 T: 76 QT: 432 QTc: 483 Interpretive Statements Unknown rhythm, irregular rate Borderline prolonged GA interval Left atrial enlargement Low voltage, extremity leads Electronically Signed On 09-22-2024 17:30:07 PST by Doyle Mckeon Please click the below link to view image of tracing.
--- NOTE | 2024-09-18 10:48 | DVH ---
CLINICAL INFORMATION: Possible stroke. TECHNIQUE: Axial imaging was obtained through the brain without contrast. Coronal and sagittal refor matted images were obtained, reviewed, and stored. Images were reviewed in brain and bone windows. A ll CT scans at this medical facility are performed using dose modulation techniques as appropriate to a performed exam including the following: Automated exposure control was utilized; adjustment of the MA and/or KV according to patient size; and use of iterative reconstruction technique. CTDIvol = 54.23 mGy DLP = 960.24 mGy-cm COMPARISON: None FINDINGS: There is no acute intracranial hemorrhage or extraaxial fluid collection. No mass effect o r midline shift. Scattered areas of hypoattenuation are seen in the periventricular and subcortical w antonietta matter, which are nonspecific but most likely sequelae of small vessel ischemic disease. The jackie tricles and sulci are within normal limits in size for age. Basal cisterns are patent. The calvar ium is unremarkable. Paranasal sinuses and mastoid air cells are clear. IMPRESSION: 1. No acute intracranial hemorrhage. 2. No acute findings are seen on noncontrast enhanced CT. Critical findings Critical Result: Stroke Alert Findings discussed with the patient's RN by Dr. Cotto by phone at 09/18/2024 12:45 PM [employer]OCK [employer], and ac knowledged receipt and understanding of the findings and will notify the patient's physician. ..
[2024-09-18 10:57] LABS: Free T4 (Free Thyroxine) 1.28 ng/dL (0.89-1.76)
[2024-09-18 11:02] LABS: T3 Total 0.97 ng/mL (0.60-1.81)
[2024-09-18 11:41] LABS: COVID19 ANTIGEN SOFIA FIA NEGATIVE (NEGATIVE)
[2024-09-18 11:41] LABS: Rapid Influenza A Negative (Negative); Rapid Influenza B Negative (Negative)
[2024-09-18] MEDS: NICOTINE 21MG/24 HR TOPICAL PATCH TD SCH (13:10)
[2024-09-18] MEDS: ERGOCALCIFEROL 50,000 UNIT(1.25MG) CAP PO SCH (13:10)
[2024-09-18] MEDS: methylPREDNISolone SOD SUCC 40 MG/ML VL IV SCH (14:24)
[2024-09-18] MEDS: SUMAtriptan SUCCINATE 6 MG/0.5 ML VL SC ONE (18:42)
[2024-09-19] VITALS (14 sets, daily range): BP systolic 141–163; BP diastolic 43–81; PULSE 64–155; RESP 16–19; TEMP 36.7; O2SAT 92–98
[2024-09-19] MEDS: LISINOPRIL 5 MG TAB PO SCH (04:35)
[2024-09-19 10:01] LABS: Basophils # (auto) 0 10 ^3/uL (0-0.2); Basophils % (auto) 0.1 % (0.0-2.0); Eosinophils # (auto) 0 10 ^3/uL (0-0.8); Hematocrit 38.8 % (36.0-46.0); Hemoglobin 13.4 g/dL (12.2-16.2); Mean Corpuscular Hemoglobin 32.5 pg (28.0-32.0); Mean Corpuscular Hgb Conc. 34.6 g/dL (32.0-36.0); Mean Corpuscular Volume 93.8 fL (80.0-100.0); Monocytes # (auto) 1.2 10 ^3/uL (0-1.3); Monocytes % (auto) 7.5 % (0.0-12.0); Neutrophils % (auto) 86.4 % (37.0-80.0); Platelet Count (auto) 228 10^3/uL (140-450); Red Blood Cells 4.13 10^6/uL (4.0-5.20); Red Cell Distribution Width 13.8 % (11.8-14.3); White Blood Cell 16.2 10^3/uL (4.4-10.8)
[2024-09-19 10:02] LABS: Anion Gap 7 (5-15); Chloride 101 mmol/L (98-107); Sodium 141 mmol/L (136-145)
[2024-09-19 10:03] LABS: Calcium 9.8 mg/dL (8.7-10.4); Carbon Dioxide 33 mmol/L (20-31); Potassium 3.2 mmol/L (3.5-5.1)
[2024-09-19 10:08] LABS: BUN/Creatinine Ratio 19.5 (10.0-20.0); Blood Urea Nitrogen 16 mg/dL (9-23)
[2024-09-19 10:12] LABS: Glucose 123 mg/dL (74-106)
[2024-09-19 10:44] LABS: Base Excess 9.4 mmol/L (-2.0-3.0)
--- NOTE | 2024-09-19 11:57 | DVHSR ---
APPROVED REPORT EXAM: LIMITED Two-dimensional and M-mode echocardiogram with Doppler and color Doppler. Blood Pressure: 144/58 mmHg INDICATION CHF RISK FACTORS Height: 5'1, Weight: 165 DIMENSIONS LVDd5.0 (3.8-5.7cm)LA (2D)4.5 (1.9-4.0cm)Aortic Root3.2 (2.0-3.7cm) LVDs3.2 (2.5-4.0cm)LA (MM) (1.9-4.0cm)Aortic Cusp Exc1.1 (1.5-2.0cm) EF (%) 60.0 (55-70%)Rt. Atrium3.8 (1.9-4.0cm)Asc. Aorta3.0 cm IVSd1.1 (0.7-1.1cm)RV (D)3.6 (1.8-2.4cm) PWd1.1 (0.7-1.1cm) Mitral Valve MitralMitral Stenosis E wave1.41m/sMV Mean GR.3mmHg A wave0.76m/sMV Peak GR.105mmHg E/A ratio1.92D MVAcm2 DECEL [id number] 1/2 Timems Aortic Valve Aortic ValveAortic Stenosis V11.20m/Sushant Mean GR.10mmHg V22.04m/Sushant Peak GR.17mmHg LVOT Diameter2.1 (1.8-2.4cm)Doppler AVA2.04cm2 Tricuspid Valve TR Velocity2.87m/s [id number] Conclusion Sinus rhythm. Left atrial enlargement. Concentric LVH. Mild thickening of the anterior mitral leaflet EF of 60% with normal RV function. Dopplers unremarkable. No pericardial effusion masses or vegetations.
[2024-09-19] MEDS ORDERED: ALBU108A5 IN (12:51)
[2024-09-19] MEDS ORDERED: METH4PAK PO (12:51)
[2024-09-19] MEDS ORDERED: LEVO500T91 PO (12:51)
[2024-09-19] MEDS ORDERED: ACETAMINOPHEN 325 MG TAB PO PRN (13:00)
[2024-09-19] MEDS: HYDROcodone-ACET 10/325MG TAB PO PRN (13:54)
--- NOTE | 2024-09-19 14:17 | DVHPN2 ---
Progress Note Date Seen: Sep 19, 2024 Has the PT tested + for MRSA If YES, has PT been informed?: No Medical Necessity Reason Pt with a Central, PICC or Fol: No Subjective Patient reports: No new complaints Review of Systems: RESPIRATORY:Abnormal, GI:Normal Objective vital signs Vital Sign Date Time Temp Pulse Resp B/P (MAP) Pulse Ox O2 Delivery O2 Flow Rate FiO2 09/19/24 10:01 143/65 09/19/24 09:54 72 16 97 09/19/24 09:44 Nasal Cannula* 3 32 09/19/24 09:00 98.8 98.8 Total Intake and Output 09/18/24 09/18/24 09/19/24 15:00 23:00 07:00 Intake Total 250 ml Output Total 1000 ml Balance 250 ml -1000 ml medications Current Medications Medications Dose Ordered Sig/Cris Route Start Time Stop Time Status Last Admin Dose Admin Azithromycin 250 ml @ 125 mls/hr DAILY IV 09/18/24 07:00 09/19/24 10:02 125 MLS/HR Ceftriaxone Sodium 50 ml @ 100 mls/hr DAILY@0900 IV 09/18/24 06:30 09/19/24 08:58 100 MLS/HR Furosemide 20 mg BID IV 09/18/24 10:00 09/19/24 10:00 20 MG Ketorolac Tromethamine 15 mg Q6HP PRN IV 09/18/24 06:15 09/23/24 06:14 09/19/24 08:58 15 MG Methylprednisolone Sodium Succinate 40 mg DAILY IV 09/18/24 14:00 09/19/24 10:00 40 MG Albuterol 2.5 mg Q4HR NEB 09/18/24 10:00 09/19/24 09:44 2.5 MG Ipratropium Parker 0.5 mg Q4HR NEB 09/18/24 10:00 09/19/24 09:44 0.5 MG Nicotine 1 patch DAILY TD 09/18/24 10:00 09/19/24 10:03 1 PATCH Ergocalciferol 50,000 unit Q7D PO 09/18/24 13:30 09/18/24 13:10 50,000 UNIT Lisinopril 10 mg DAILY PO 09/19/24 04:30 09/19/24 10:01 10 MG Acetaminophen/ Hydrocodone Bitart 1 tab Q4HP PRN PO 09/19/24 13:00 Acetaminophen 650 mg Q4HP PRN PO 09/19/24 13:00 Examination: GENERAL:Normal, LUNGS:Abnormal, CVS:Normal laboratory and microbiology Laboratory Tests 09/19/24 09:31 Test 09/19/24 09:31 Range/Units Serum Glucose 123 H 74-106 mg/dL Problem List/Assessment/Plan Problem List/Assessment/Plan 1 Acute on chronic respiratory failure 2) COPD exacerbation 3) HTN 4) dCHF 5) R 3rd metatarsal Fx plan; patient transferred to md today after insurance noted to be [facility], now off bipap and on baseline 4L o2 NC, IV Abx, IV steroids, nebs to continue, PT eval pending, foot xray shows R 3rd toe metatarsal fx and podiatry consult was placed however is likely non surgical, AM labs, BCx pending, she may need SNF given weakness on discharge Plan discussed with: Other (n) ELVA MAYA MD Sep 19, 2024 14:17
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
--- NOTE | 2024-09-19 15:33 | DVHDS2 ---
New Physician D'charge PN Admitting Diagnosis Admitting Diagnosis sob Discharge Diagnosis copd acute on chronic respiratory failure Operations or Procedures none Reason(s) For Hospitalization Surgery Hospital Course 84 F who comes to ER c/o of SOB. She normally wears 4L o2 but as per dtr melissa she does not always wear it. on arrival she was noted to be hypoxic and in respiratory acidosis with high pco2. SHe was placed on bipap and eventually her repeat ABG improved and she was taken off bipap and placed on her baseline 4L o2 via NC. She received IV ABx, IV steroids and nebs. Her CXR was clear and showed no PNA or infiltrate. She had an echo done which showed EF 60% and her cardiac enzymes were negative. She had a R foot 3rd metatarsal fx and was seen by podiatry and was recommended for nonsurgical management. She will be dc home on her baseline home o2 4L/min NC and will give PO steroids and PO Abx along with albuterol inhaler for home. Nebulizer machine to be ordered via [facility] and patient counseled on smoking cessation and compliance with home o2. Spoke to daughter Melissa and updated her POC and she understands. Will dc patient home with outpt PCP and pulm follow up. Treatment Plan Discharge Condition of Discharge Good Disposition Home Discharge Instructions Diet: Consistent carbohydrate, Cardiac 2g Na,low cholest Activity: No Restrictions, As Tolerated Medications: see med sheet Follow Up Care Follow Up/Referral: pcp pulm Discharge Statement: "Patient was advised to return to the ER or call 911 if any headaches, dizziness, shortness of breath, chest pain, abdominal pain, bleeding, fevers, or worsening of medical condition. Patient was counseled about treatment plan, medications, possible side effects, patientverbalized understanding. All questions were answered to the best of my ability. This discharge took greater then 30 minutes in planning, reviewing documentation, counseling the patient, and discussing with other team members." ELVA MAYA MD Sep 19, 2024 15:33
== END 2024-09-19 17:45 | disposition home or self-care (01) | DRG 189 ==
LOC: ER 02:39 → EDBD 02:39 → EDUNIT# 05:34 → OVERFLOW 05:34 → TELE-CENTR 09-19 03:26
PROVIDERS: ADMIT Internal Medicine; ATTEND Internal Medicine
PROC: 5A09357 Assistance with Respiratory Ventilation, Less than 24 Consecutive Hours, Continuous Positive Airway Pressure (ICD-10-PCS; principal; 2024-09-18)
DX: J96.22 Acute and chronic respiratory failure with hypercapnia (principal); I50.33 Acute on chronic diastolic (congestive) heart failure; J44.1 Chronic obstructive pulmonary disease with (acute) exacerbation; E87.4 Mixed disorder of acid-base balance; R73.9 Hyperglycemia, unspecified; Z20.822 Contact with and (suspected) exposure to COVID-19; S92.331A Displaced fracture of third metatarsal bone, right foot, initial encounter for closed fracture; W18.39XA Other fall on same level, initial encounter; I11.0 Hypertensive heart disease with heart failure; Z71.6 Tobacco abuse counseling; Z82.49 Family history of ischemic heart disease and other diseases of the circulatory system; Z82.3 Family history of stroke; Z80.0 Family history of malignant neoplasm of digestive organs; Y93.89 Activity, other specified; Y92.89 Other specified places as the place of occurrence of the external cause; Y99.8 Other external cause status; Z88.8 Allergy status to other drugs, medicaments and biological substances
CPT/HCPCS: 36415; 36600; 70450; 71045; 73620; 80048; 80053; 80061; 81001; 82306; 82607; 82805; 83036; 83735; 83880; 84439; 84443; 84480; 84484; 85025; 85379; 85610; 85730; 87040; 87426; 87804; 93005; 93306; 94640; 94660; 96365; 96375; 96376; 99291; G0378; J1885; J2405

== ENCOUNTER 2024-11-27 18:10 | Inpatient (IN) | payer OTHER ==
[~2024-11-27] VITALS: Ht 152.4 cm; Wt 85.9 kg
[2024-11-27] MEDS: SODIUM CHLORIDE 0.9% 1,000 ML IV ONE (02:14)
[~2024-11-27 18:10] MED LIST changes: +ALBU108A5 IN; -ASPI-498 PO; -ATOR20TA50 PO; -BACL10TA PO; -FURO20TA3 PO; -GABA-1250 PO; +LEVO500T91 PO; -LIDO5PAD12 EX; -LISI10TA34 PO; -MAGN241.4 PO; +METH4PAK PO; -METO25TA93 PO; -MORP15TA PO; -OMEP1CAP70 PO; -ONDA-144 PO; -OXYC-963 PO; -POTA-220 PO
--- NOTE | 2024-11-27 18:30 | ED.PDOC ---
History of Present Illness HPI Comments 84-year-old female complains of right ankle pain and swelling for the last 3 days after she [facility] a [facility]. Patient was unable to put weight on the ankle so quick x-ray was done and they suspected that she had a fracture so they called the ambulance. Chief Complaint: Lower Extremity Time Seen by MD: 18:16 Primary Care Provider: Unknown Reviewed Notes: Nurses Notes, Milk Route Supervisor Notes Allergies: Coded Allergies: Iodine (Verified Allergy, Mild, RASH, 11/26/20) Home Meds Active Scripts Albuterol Sulfate (Albuterol Sulfate Hfa) 108 Mcg/Act Aer, 108 MCG IN Q4HPRN PRN, #1 AER Prov:ELVA MAYA MD 09/19/24 Methylprednisolone (Medrol Dosepak) 4 Mg Jhony, 4 MG PO UD, #21 TAB UAD Prov:ELVA MAYA MD 09/19/24 Levofloxacin Hemihydrate (LEVAQUIN 500 MG) 500 Mg Tab, 1 TAB PO DAILY, #7 TAB Prov:ELVA MAYA MD 09/19/24 Information Source: Patient, Emergency Med Personnel Mode of Arrival: EMS Severity: Moderate, Severe Timing: Days Duration: Since onset Past Medical History PAST MEDICAL HISTORY: CHF, COPD, Dementia, HTN Surgical History: Unobtainable 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 Family History Family History: Unobtainable Social History Smoker: Unobtainable Alcohol: Unobtainable Drugs: Unobtainable Lives In: Home Musculoskeletal: reports: joint pain, joint swelling, others (Right ankle swelling and bruising extending to the right foot) Unable to Obtain due to: Dementia Physical Exam General Appearance: Moderate Distress, Obese HEENT: Normal ENT Inspection, Pharynx Normal, TMs Normal Neck: Full Range of Motion, Non-Tender, Normal, Normal Inspection Respiratory: Chest Non-Tender, Lungs Clear, No Accessory Muscle Use, No Respiratory Distress, Normal Breath Sounds Cardiovascular: No Edema, No JVD, No Murmur, No Gallop, Normal Peripheral Pulses, Regular Rate/Rhythm Breast Exam: Deferred Gastrointestinal: No Organomegaly, Non Tender, No Pulsatile Mass, Normal Bowel Sounds, Soft Genitalia: Deferred Pelvic: Deferred Rectal: Deferred Extremities: Other (Right ankle and foot ecchymosis and edema and tenderness at the ankle) Musculoskeletal : Apperance: Normal Neurologic: Alert, tobacco scrap sifter II-XII nml as Tested, No Motor Deficits, Normal Affect, Normal Mood, No Sensory Deficits Cerebellar Function: Normal Reflexes: Normal Skin: Dry, Normal Color, Warm Lymphatic: No Adenopathy Was a procedure done? Was a procedure done?: No Differential Dx Considerations may include: Differential diagnosis includes but not limited to: Bony fracture, dislocation, compartment syndrome, nerve injury, vascular injury and others X-Ray, Labs, Meds, VS Vital Signs Date Time Temp Pulse Resp B/P (MAP) Pulse Ox O2 Delivery O2 Flow Rate FiO2 11/27/24 18:40 97.7 61 18 106/69 (81) 96 97.7 Lab Test 11/27/24 19:03 Range/Units White Blood Count 10.9 H 4.4-10.8 10^3/uL Red Blood Count 3.83 L 4.0-5.20 10^6/uL Hemoglobin 12.4 12.2-16.2 g/dL Hematocrit 36.0 36.0-46.0 % Mean Corpuscular Volume 93.8 80.0-100.0 fL Mean Corpuscular Hemoglobin 32.4 H 28.0-32.0 pg Mean Corpuscular Hemoglobin Concent 34.5 32.0-36.0 g/dL Red Cell Distribution Width 13.7 11.8-14.3 % Platelet Count 248 140-450 10^3/uL Mean Platelet Volume 8.1 6.9-10.8 fL Neutrophils (%) (Auto) 69.3 37.0-80.0 % Lymphocytes (%) (Auto) 20.1 10.0-50.0 % Monocytes (%) (Auto) 7.9 0.0-12.0 % Eosinophils (%) (Auto) 1.4 0.0-7.0 % Basophils (%) (Auto) 1.3 0.0-2.0 % Neutrophils # (Auto) 7.6 1.6-8.6 10 ^3/uL Lymphocytes # (Auto) 2.2 0.4-5.4 10 ^3/uL Monocytes # (Auto) 0.9 0-1.3 10 ^3/uL Eosinophils # (Auto) 0.2 0-0.8 10 ^3/uL Basophils # (Auto) 0.1 0-0.2 10 ^3/uL Nucleated Red Blood Cells 0.2 % Prothrombin Time 10.3 9.3-11.8 sec Prothrombin Time INR 0.97 0.9-1.15 Activated Partial Thromboplast Time 29.2 24.5-34.5 SEC Sodium Level 136 136-145 mmol/L Potassium Level 4.0 3.5-5.1 mmol/L Chloride Level 103 98-107 mmol/L Carbon Dioxide Level 31 20-31 mmol/L Anion Gap 2 L 5-15 Blood Urea Nitrogen 11 9-23 mg/dL Creatinine 0.93 0.550-1.02 mg/dL Glomerular Filtration Rate Calc 61 >90 mL/min BUN/Creatinine Ratio 11.8 10.0-20.0 Serum Glucose 114 H 74-106 mg/dL Calcium Level 9.2 8.7-10.4 mg/dL Total Bilirubin 0.5 0.2-1.0 mg/dL Aspartate Amino Transferase (AST) < 8 L 13-40 U/L Alanine Aminotransferase (ALT) 10 7-40 U/L Alkaline Phosphatase 130 H 46-116 U/L Total Protein 6.2 5.7-8.2 g/dL Albumin 4.1 3.2-4.8 g/dL Time of 1ST Reevaluation: 18:29 Reevaluation 1ST: Unchanged Patient Education/Counseling: Diagnosis, Treatment Family Education/Counseling: No Family Present Departure 1 Departure Time of Disposition: 19:50 Impression: Primary Impression: Closed right ankle fracture Additional Impressions: Closed trimalleolar fracture History of hypertension History of congestive heart failure Disposition: ADMITTED INPATIENT Condition: Guarded Discharged With: Self Comments Right Ankle Pain and Fracture Chief Complaint: Right ankle pain after fall History of Present Illness: 84-year-old female [facility] with [facility] pain following a fall three days ago. [facility] staff noted swelling of the ankle and obtained preliminary X-rays suggesting a possible fracture, prompting transfer to the emergency department for further evaluation. Patient reports ongoing pain in the affected area since the incident. Vital Signs: Noted to be hemodynamically stable, specific values not documented Physical Exam: Musculoskeletal: - Right ankle with significant ecchymosis and swelling - Right foot also noted to have swelling Lab Results: WBC: 11, 000 (mildly elevated) Hemoglobin: 12 Hematocrit: 36 Platelets: 248 Chemistry panel: Within normal limits Imaging and Other Relevant Results: Right ankle, tibia/fibula, and foot X-rays: - Findings consistent with closed trimalleolar fracture of the right ankle Medical Decision Making: Summary Statement: 84-year-old [facility] with right ankle pain and swelling after fall, found to have trimalleolar fracture requiring surgical intervention. Problem List: 1. Right ankle trimalleolar fracture 2. Post-fall injury 3. Mild leukocytosis Differential Diagnosis: 1. Trimalleolar fracture 2. Ankle sprain 3. Ligamentous injury 4. Soft tissue injury ED Course: Patient received fentanyl for pain control. Labs and imaging obtained. Orthopedic consultation requested. Patient stabilized for admission. Assessment and Plan: 1. Right Ankle Trimalleolar Fracture: - Admit to hospital for medical clearance and stabilization - Orthopedic consultation for likely ORIF - Continue pain management as needed - Elevate extremity and ice 2. Mild Leukocytosis: - Likely stress response - Will monitor during admission Billing Information: ICD-10: S82.852A - Trimalleolar fracture of right ankle, initial encounter ICD-10: W19.XXXA - Unspecified fall, initial encounter ICD-10: R72.0 - Elevated white blood cell count Critical Care Note Critical Care Time?: No Stability Stability form required: No Heart Score Heart Score: Heart Score Response (Comments) Value History N/A 0 EKG N/A 0 Age N/A 0 Risk Factors N/A 0 Troponin N/A 0 Total 0 LOUISE AGARWAL MD November 27, 2024 18:30
--- NOTE | 2024-11-27 19:13 | DVH ---
Indication: fall injury Technique: Radiographs of the right ankle, tibia/ fibula and right foot. Comparison: None FINDINGS/IMPRESSION: Fracture of the distal fibular meta diaphysis that is comminuted with approximately 4 mm cortical off set. Displaced fracture medial malleolus with the medial malleolar fracture fragment measuring 15 mm and d emonstrating approximately 7 mm cortical offset. Likely fracture posterior malleolus. Recommend CT right ankle to fully characterize. Fracture of the proximal 3rd metatarsal bone. Dorsal right foot soft tissue edema. Recommend CT of t he right foot to fully evaluate and also exclude any other radiographically occult fractures. Disruption of the ankle mortise with widening of the medial ankle clear space by 15 mm. Anterior wide nelly of the tibiotalar joint by 9 mm. Achilles enthesopathy. Inferior calcaneal spurring. Moderate degenerate changes of the 1st MTP joint. Hallux valgus.
[2024-11-27 19:19] LABS: Basophils # (auto) 0.1 10 ^3/uL (0-0.2); Basophils % (auto) 1.3 % (0.0-2.0); Eosinophils # (auto) 0.2 10 ^3/uL (0-0.8); Eosinophils % (auto) 1.4 % (0.0-7.0); Hemoglobin 12.4 g/dL (12.2-16.2); Lymphocytes # (auto) 2.2 10 ^3/uL (0.4-5.4); Lymphocytes % (auto) 20.1 % (10.0-50.0); Mean Corpuscular Hemoglobin 32.4 pg (28.0-32.0); Mean Corpuscular Hgb Conc. 34.5 g/dL (32.0-36.0); Mean Corpuscular Volume 93.8 fL (80.0-100.0); Monocytes # (auto) 0.9 10 ^3/uL (0-1.3); Monocytes % (auto) 7.9 % (0.0-12.0); Neutrophils # (auto) 7.6 10 ^3/uL (1.6-8.6); Neutrophils % (auto) 69.3 % (37.0-80.0); Nucleated Red Blood Cells % 0.2 %; Platelet Count (auto) 248 10^3/uL (140-450); Red Blood Cells 3.83 10^6/uL (4.0-5.20); Red Cell Distribution Width 13.7 % (11.8-14.3); White Blood Cell 10.9 10^3/uL (4.4-10.8)
[2024-11-27 19:38] LABS: Alanine Aminotransferase 10 U/L (7-40); Albumin 4.1 g/dL (3.2-4.8); Anion Gap 2 (5-15); BUN/Creatinine Ratio 11.8 (10.0-20.0); Blood Urea Nitrogen 11 mg/dL (9-23); Calcium 9.2 mg/dL (8.7-10.4); Carbon Dioxide 31 mmol/L (20-31); Chloride 103 mmol/L (98-107); Total Protein 6.2 g/dL (5.7-8.2)
[2024-11-27 19:39] LABS: Bilirubin, Total 0.5 mg/dL (0.2-1.0)
[2024-11-27 19:40] LABS: Alkaline Phosphatase 130 U/L (46-116); Aspartate Aminotransferase < 8 U/L (13-40); Glucose 114 mg/dL (74-106); Sodium 136 mmol/L (136-145)
[2024-11-27 19:42] LABS: INR 0.97 (0.9-1.15); Partial Thromboplastin Time 29.2 SEC (24.5-34.5); Prothrombin Time 10.3 sec (9.3-11.8)
[2024-11-27] MEDS ORDERED: MORPHINE SULFATE INJ 2 MG/ml SYRG IV PRN (21:45)
[2024-11-27] MEDS ORDERED: NITROGLYCERIN 0.4 MG SL TAB SL PRN (21:45)
[2024-11-28] VITALS (8 sets, daily range): BP systolic 103–137; BP diastolic 50–84; PULSE 62–90; RESP 14–18; TEMP 97.6–98.9; O2SAT 90–95
--- NOTE | 2024-11-28 01:09 | DVHHP2 ---
Admitting Diagnosis: right ankle fracture History of Present Illness HPI 84 y.o. female with COPD, HTN, dementia was brought to the ER c/o right ankle pain. Patient fell 3 days ago and has had right ankle pain since then. XR showed right ankle fracture. Home Meds Active Scripts Albuterol Sulfate (Albuterol Sulfate Hfa) 108 Mcg/Act Aer, 108 MCG IN Q4HPRN PRN, #1 AER Prov:ELVA MAYA MD 09/19/24 Methylprednisolone (Medrol Dosepak) 4 Mg Jhony, 4 MG PO UD, #21 TAB UAD Prov:ELVA MAYA MD 09/19/24 Levofloxacin Hemihydrate (LEVAQUIN 500 MG) 500 Mg Tab, 1 TAB PO DAILY, #7 TAB Prov:ELVA MAYA MD 09/19/24 Past Medical History Cardiac: HTN Pulmonary: COPD Patient Family History: Colon cancer G8 FATHER FHx: cardiovascular disease G8 MOTHER Hypertension G8 FATHER Stroke Unknown Review of Systems Musculoskeletal: Leg pain, Foot pain H&P Exam Vital Signs Vital Signs Date Time Temp Pulse Resp B/P (MAP) Pulse Ox O2 Delivery O2 Flow Rate FiO2 11/27/24 18:40 97.7 61 18 106/69 (81) 96 97.7 General Appeara: Obese Head Exam: Normal inspection Neck Exam: Non-tender Eye Exam: bilateral eye PERRL, bilateral eye EOMI Pulmonary/Respiratory: Lungs clear Cardiovascular/Chest: Regular rate Abdominal Exam: No tenderness Ankle Exam: right ankle Evidence of injury, right ankle Limited range of motion, right ankle Soft tissue tenderness, right ankle Swelling Neuro/Mental St: Alert, Disoriented Labs/Xrays Labs Test 11/27/24 19:03 Range/Units White Blood Count 10.9 H 4.4-10.8 10^3/uL Red Blood Count 3.83 L 4.0-5.20 10^6/uL Hemoglobin 12.4 12.2-16.2 g/dL Hematocrit 36.0 36.0-46.0 % Mean Corpuscular Volume 93.8 80.0-100.0 fL Mean Corpuscular Hemoglobin 32.4 H 28.0-32.0 pg Mean Corpuscular Hemoglobin Concent 34.5 32.0-36.0 g/dL Red Cell Distribution Width 13.7 11.8-14.3 % Platelet Count 248 140-450 10^3/uL Mean Platelet Volume 8.1 6.9-10.8 fL Neutrophils (%) (Auto) 69.3 37.0-80.0 % Lymphocytes (%) (Auto) 20.1 10.0-50.0 % Monocytes (%) (Auto) 7.9 0.0-12.0 % Eosinophils (%) (Auto) 1.4 0.0-7.0 % Basophils (%) (Auto) 1.3 0.0-2.0 % Neutrophils # (Auto) 7.6 1.6-8.6 10 ^3/uL Lymphocytes # (Auto) 2.2 0.4-5.4 10 ^3/uL Monocytes # (Auto) 0.9 0-1.3 10 ^3/uL Eosinophils # (Auto) 0.2 0-0.8 10 ^3/uL Basophils # (Auto) 0.1 0-0.2 10 ^3/uL Nucleated Red Blood Cells 0.2 % Prothrombin Time 10.3 9.3-11.8 sec Prothrombin Time INR 0.97 0.9-1.15 Activated Partial Thromboplast Time 29.2 24.5-34.5 SEC Sodium Level 136 136-145 mmol/L Potassium Level 4.0 3.5-5.1 mmol/L Chloride Level 103 98-107 mmol/L Carbon Dioxide Level 31 20-31 mmol/L Anion Gap 2 L 5-15 Blood Urea Nitrogen 11 9-23 mg/dL Creatinine 0.93 0.550-1.02 mg/dL Glomerular Filtration Rate Calc 61 >90 mL/min BUN/Creatinine Ratio 11.8 10.0-20.0 Serum Glucose 114 H 74-106 mg/dL Calcium Level 9.2 8.7-10.4 mg/dL Total Bilirubin 0.5 0.2-1.0 mg/dL Aspartate Amino Transferase (AST) < 8 L 13-40 U/L Alanine Aminotransferase (ALT) 10 7-40 U/L Alkaline Phosphatase 130 H 46-116 U/L Total Protein 6.2 5.7-8.2 g/dL Albumin 4.1 3.2-4.8 g/dL Assessment/Plan Problem List: (1) Closed right ankle fracture (2) HTN (hypertension) (3) CHF (congestive heart failure) Plan discussed with: Patient PHILIP DE LEON MD November 28, 2024 01:09
[2024-11-28] MEDS: ONDANSETRON HCL 4 MG/2 ML VIAL IV ONE (01:29)
[2024-11-28 01:36] LABS: Urine Bacteria None Seen /hpf (None Seen)
[2024-11-28] MEDS: fentaNYL CITRATE 100 MCG/2 ML VL IV ONE (01:40)
[2024-11-28 01:57] LABS: Urine Blood Negative /uL (Negative); Urine Clarity Clear (Clear); Urine Color Colorless (Yellow); Urine Protein, UAD Negative (Negative); Urine Specific Gravity 1.005 (1.001-1.035); Urine Squamous Epithelial Cell FEW /hpf (<5); Urine Urobilinogen Normal (Negative); Urine pH 6.5 (5.0-9.0)
[2024-11-28 02:00] LABS: Urine WBC < 1 /HPF (0-5)
--- NOTE | 2024-11-28 03:31 | DVH ---
Examination: RANCT CLINICAL INDICATION: right ankle fracture COMPARISON: None. CONTRAST USED: None. TECHNIQUE: Plain CT study of the right ankle was obtained without contrast. Multiplanar reconstructi ons were obtained. CT scan was done using principles of ALARA [as low as reasonably achievable]. FINDINGS: JOINT SPACES: Moderate degenerative changes are noted in the tibiotalar, talofibular, subtalar and i ntertarsal joints. Mild degenerative changes are observed in the tarsometatarsal, metatarsophalangeal and interphalangeal joints. OSSEOUS STRUCTURES AND BONE MARROW: An avulsion fracture is present at the base of the medial malleo john. There is a spiral fracture involving the distal metaphyseal end of the fibula, above the level o f the tibial plafond with lateral angulation of the fracture fragments. A fracture is also noted invo lving the posterior aspect of the tibia (posterior malleolus). No evidence of contusion or avascular necrosis (AVN) is seen. SOFT TISSUES: Diffuse soft tissue edema and hematoma are present around the ankle joint, with subcut aneous edema and fat stranding in the distal one-third of the leg. Diffuse thickening of the Achilles tendon in its mid portion with foci of calcification, suggestive of calcific tendinopathy. Diffuse s ubcutaneous edema and fat stranding are noted on the dorsal aspect of the foot. No obvious drainable collection is identified. Visualized portions of the flexor, extensor and peroneal tendons appear nicolle ssly unremarkable. There is no evidence soft tissue mass identified. ADDITIONAL FINDINGS: CT scan is limited in evaluating meniscal pathology; if meniscal pathology is s uspected and persistent pain is present, further evaluation with MRI of the ankle is suggested. IMPRESSION: 1. Avulsion fracture involving the base of the medial malleolus, and spiral fracture involving the d istal metaphyseal end of the fibula above the level of the tibial plafond with lateral angulation of the fracture fragments. 2. Fracture involving the posterior aspect of the tibia (posterior malleolus). 3. Diffuse soft tissue edema and hematoma around the ankle joint with subcutaneous edema and fat str anding in the distal one-third of the leg. 4. Diffuse thickening of the Achilles tendon with calcific tendinopathy. 5. Moderate degenerative changes in the tibiotalar, talofibular, subtalar and intertarsal joints. Mi ld degenerative changes in the tarsometatarsal, metatarsophalangeal and interphalangeal joints. CT scan is limited in evaluating meniscal pathology. If meniscal pathology is suspected and persisten t pain is present, further evaluation with MRI of the ankle is suggested. Electronically Signed 11/28/2024 03:29 Jhony Leija
[2024-11-28] MEDS: HYDROmorphone HCL 2 MG/ML VL/or syr IV PRN (06:33)
--- NOTE | 2024-11-28 09:08 | DVH ---
EXAM: XY CHEST PORTABLE Indication: pain Technique: Single frontal view of the chest was obtained Comparison: XY CHEST PORTABLE on DOS: 06/10/23, CHEST PORTABLE on DOS: 01/04/21, CHEST XRAY 1 VIEW on DOS: 09/10/20, CHEST PORTABLE on DOS: 07/24/20 FINDINGS: Lines and Tubes: None Lungs: No focal consolidation. Pleura: No effusion. No pneumothorax. Cardiomediastinal contours: Cardiomegaly. Bones: No acute osseous abnormality. IMPRESSION: Cardiomegaly.No acute cardiopulmonary disease.
[2024-11-28 09:19] LABS: Basophils # (auto) 0.1 10 ^3/uL (0-0.2); Basophils % (auto) 0.8 % (0.0-2.0); Eosinophils # (auto) 0.1 10 ^3/uL (0-0.8); Eosinophils % (auto) 1.4 % (0.0-7.0); Hematocrit 36.3 % (36.0-46.0); Lymphocytes # (auto) 1.4 10 ^3/uL (0.4-5.4); Lymphocytes % (auto) 16.5 % (10.0-50.0); Monocytes # (auto) 0.6 10 ^3/uL (0-1.3); Monocytes % (auto) 7.4 % (0.0-12.0); Neutrophils # (auto) 6.4 10 ^3/uL (1.6-8.6); Neutrophils % (auto) 73.9 % (37.0-80.0); Platelet Count (auto) 243 10^3/uL (140-450); Red Blood Cells 3.86 10^6/uL (4.0-5.20); Red Cell Distribution Width 14.2 % (11.8-14.3); White Blood Cell 8.7 10^3/uL (4.4-10.8)
[2024-11-28 09:29] LABS: Albumin 3.7 g/dL (3.2-4.8); Anion Gap 4 (5-15); BUN/Creatinine Ratio 11.8 (10.0-20.0); Bilirubin, Total 0.5 mg/dL (0.2-1.0); Calcium 9.1 mg/dL (8.7-10.4); Carbon Dioxide 29 mmol/L (20-31); Chloride 107 mmol/L (98-107); Glucose 103 mg/dL (74-106); Potassium 4.1 mmol/L (3.5-5.1); Sodium 140 mmol/L (136-145); Total Protein 5.8 g/dL (5.7-8.2)
[2024-11-28 09:31] LABS: INR 0.97 (0.9-1.15); Prothrombin Time 10.3 sec (9.3-11.8)
[2024-11-28 09:34] LABS: Alanine Aminotransferase < 9 U/L (7-40); Alkaline Phosphatase 120 U/L (46-116); Aspartate Aminotransferase < 8 U/L (13-40); Blood Urea Nitrogen 8 mg/dL (9-23)
--- NOTE | 2024-11-28 11:55 | DVHPN2 ---
Reviewed: Care Plan, H&P, Labs, Medications, Previous Orders, Radiology Changes from previous H/P or p: No Changes Objective Vitals Vital Signs Date Time Temp Pulse Resp B/P (MAP) Pulse Ox O2 Delivery O2 Flow Rate FiO2 11/28/24 10:34 71 16 128/59 11/28/24 05:00 98.9 94 98.9 11/28/24 03:41 Nasal Cannula* 4 36 Intake/Output Intake and Output 11/28/24 07:00 Intake Total 350 ml Balance 350 ml Intake Oral 0 ml IV Total 350 ml Medications Current Medications Medications Dose Ordered Sig/Cris Route Start Time Stop Time Status Last Admin Dose Admin Nitroglycerin 0.4 mg Q5MINP PRN SL 11/27/24 21:45 Hydromorphone HCl 1 mg Q4HPRN PRN IV 11/28/24 04:30 11/28/24 10:34 1 MG Laboratory Results Laboratory Tests 11/28/24 08:14 Chemistry Test 11/27/24 19:03 11/28/24 08:14 Albumin 4.1 g/dL (3.2-4.8) 3.7 g/dL (3.2-4.8) Calcium Level 9.2 mg/dL (8.7-10.4) 9.1 mg/dL (8.7-10.4) Total Protein 6.2 g/dL (5.7-8.2) 5.8 g/dL (5.7-8.2) Coagulation Test 11/27/24 19:03 11/28/24 08:14 Prothrombin Time 10.3 sec (9.3-11.8) 10.3 sec (9.3-11.8) Prothrombin Time INR 0.97 (0.9-1.15) 0.97 (0.9-1.15) Activated Partial Thromboplast Time 29.2 SEC (24.5-34.5) LFT Test 11/27/24 19:03 11/28/24 08:14 Alanine Aminotransferase (ALT) 10 U/L (7-40) < 9 U/L (7-40) Alkaline Phosphatase 130 U/L (46-116) H 120 U/L (46-116) H Aspartate Amino Transferase (AST) < 8 U/L (13-40) L < 8 U/L (13-40) L Total Bilirubin 0.5 mg/dL (0.2-1.0) 0.5 mg/dL (0.2-1.0) Urinalysis Test 11/28/24 01:22 Urine Color Colorless (Yellow) Urine Clarity Clear (Clear) Urine pH 6.5 (5.0-9.0) Urine Specific [place] 1.005 (1.001-1.035) Urine Protein Negative (Negative) Urine Ketones Negative (Negative) Urine Blood Negative /uL (Negative) Urine Nitrite Negative (Negative) Urine Bilirubin Negative (Negative) Urine Urobilinogen Normal mg/dL (Negative) Urine Leukocyte Esterase Negative /uL (Negative) Urine RBC None seen /hpf (0 - 4) Urine Microscopic WBC < 1 /HPF (0-5) Urine Squamous Epithelial Cells Few /hpf (<5) Urine Bacteria None seen /hpf (None Seen) Urine Glucose Normal mg/dL (Normal) Labs and/or images reviewed: Labs reviewed by me, Image(s) reviewed by me Assessment/Plan Assessment/Plan Closed fracture right ankle: Pain medication, consult for Dr. Campbell Hypertension COPD Dementia Patient is hospice revoked Cardiology consult for Dr. Adams for preop clearance Plan discussed with: Patient Date of Service: November 28, 2024 Billing Provider: YOLY THOMAS MD Common Visit Codes: [id number] INP/OBS CARE(HIGH) YOLY THOMAS MD November 28, 2024 11:55
--- NOTE | 2024-11-28 14:04 | DVHINCON2 ---
Date of service: November 28, 2024 History of Present Illness 84 yo F with htn on hospice admitted for ortho fx. pt is a poor historian. she has a hx of chf per pt Past Medical History reviewed Family History: Colon cancer G8 FATHER FHx: cardiovascular disease G8 MOTHER Hypertension G8 FATHER Stroke Unknown Allergies: Coded Allergies: Iodine (Verified Allergy, Mild, RASH, 11/26/20) Home Meds Active Scripts Albuterol Sulfate (Albuterol Sulfate Hfa) 108 Mcg/Act Aer, 108 MCG IN Q4HPRN PRN, #1 AER Prov:ELVA MAYA MD 09/19/24 Methylprednisolone (Medrol Dosepak) 4 Mg Jhony, 4 MG PO UD, #21 TAB UAD Prov:ELVA MAYA MD 09/19/24 Levofloxacin Hemihydrate (LEVAQUIN 500 MG) 500 Mg Tab, 1 TAB PO DAILY, #7 TAB Prov:ELVA MAYA MD 09/19/24 Current Medications Current Medications Medications (Trade) Dose Ordered Sig/Cris Route PRN Reason Start Time Stop Time Status Last Admin Nitroglycerin (Ntrostat Sublingual) 0.4 mg Q5MINP PRN SL FOR CHEST PAIN 11/27/24 21:45 Morphine Sulfate 2 mg Q30M PRN IV FOR CHEST PAIN 11/27/24 21:45 11/28/24 04:27 DC Hydromorphone HCl (Dilaudid Injection) 1 mg Q4HPRN PRN IV MODERATE PAIN (4-6 PAIN SCALE) 11/28/24 04:30 11/28/24 10:34 Review of Systems 10 pt ros otherwise negative Vital Signs Vital Signs Date Time Temp Pulse Resp B/P (MAP) Pulse Ox O2 Delivery O2 Flow Rate FiO2 11/28/24 10:34 71 16 128/59 11/28/24 08:00 93 Nasal Cannula* 4 36 11/28/24 05:00 98.9 98.9 Physical Exam nad s1 s2 rrr ctab soft n/nd Labs/Diagnostic Data Labs Test 11/28/24 08:14 11/28/24 01:22 11/27/24 19:03 Range/Units White Blood Count 8.7 4.4-10.8 10^3/uL Red Blood Count 3.86 L 4.0-5.20 10^6/uL Hemoglobin 12.0 L 12.2-16.2 g/dL Hematocrit 36.3 36.0-46.0 % Mean Corpuscular Volume 94.0 80.0-100.0 fL Mean Corpuscular Hemoglobin 31.0 28.0-32.0 pg Mean Corpuscular Hemoglobin Concent 33.0 32.0-36.0 g/dL Red Cell Distribution Width 14.2 11.8-14.3 % Platelet Count 243 140-450 10^3/uL Mean Platelet Volume 8.6 6.9-10.8 fL Neutrophils (%) (Auto) 73.9 37.0-80.0 % Lymphocytes (%) (Auto) 16.5 10.0-50.0 % Monocytes (%) (Auto) 7.4 0.0-12.0 % Eosinophils (%) (Auto) 1.4 0.0-7.0 % Basophils (%) (Auto) 0.8 0.0-2.0 % Neutrophils # (Auto) 6.4 1.6-8.6 10 ^3/uL Lymphocytes # (Auto) 1.4 0.4-5.4 10 ^3/uL Monocytes # (Auto) 0.6 0-1.3 10 ^3/uL Eosinophils # (Auto) 0.1 0-0.8 10 ^3/uL Basophils # (Auto) 0.1 0-0.2 10 ^3/uL Nucleated Red Blood Cells 0.0 % Prothrombin Time 10.3 9.3-11.8 sec Prothrombin Time INR 0.97 0.9-1.15 Sodium Level 140 136-145 mmol/L Potassium Level 4.1 3.5-5.1 mmol/L Chloride Level 107 98-107 mmol/L Carbon Dioxide Level 29 20-31 mmol/L Anion Gap 4 L 5-15 Blood Urea Nitrogen 8 L 9-23 mg/dL Creatinine 0.68 0.550-1.02 mg/dL Glomerular Filtration Rate Calc 87 >90 mL/min BUN/Creatinine Ratio 11.8 10.0-20.0 Serum Glucose 103 74-106 mg/dL Calcium Level 9.1 8.7-10.4 mg/dL Total Bilirubin 0.5 0.2-1.0 mg/dL Aspartate Amino Transferase (AST) < 8 L 13-40 U/L Alanine Aminotransferase (ALT) < 9 7-40 U/L Alkaline Phosphatase 120 H 46-116 U/L Total Protein 5.8 5.7-8.2 g/dL Albumin 3.7 3.2-4.8 g/dL Urine Color Colorless Yellow Urine Clarity Clear Clear Urine pH 6.5 5.0-9.0 Urine Specific [place] 1.005 1.001-1.035 Urine Protein Negative Negative Urine Ketones Negative Negative Urine Blood Negative Negative /uL Urine Nitrite Negative Negative Urine Bilirubin Negative Negative Urine Urobilinogen Normal Negative mg/dL Urine Leukocyte Esterase Negative Negative /uL Urine RBC None seen 0 - 4 /hpf Urine Microscopic WBC < 1 0-5 /HPF Urine Squamous Epithelial Cells Few <5 /hpf Urine Bacteria None seen None Seen /hpf Urine Glucose Normal Normal mg/dL Activated Partial Thromboplast Time 29.2 24.5-34.5 SEC Assessment preop eval hospice eval ortho fx htn Plan/Recommendation check ecg echo in 2020 was normal lvef [facility] 2020 had no cad pending ecg, pt can proceed to OR at acceprtable intermediate risk pending risk eval with her surgical team Plan discussed with: Patient IGNACIO CAN MD November 28, 2024 14:04
--- NOTE | 2024-11-28 18:29 | DVHINCON2 ---
Consult Note Consult Consult Note Referring Service: Emergency Room/Hospitalist Consulting Provider: Orthopedic Surgery Reason for Consult: Evaluation and management of right ankle fracture following ground-level fall --- HISTORY OF PRESENT ILLNESS: The patient is an 84-year-old female admitted following a ground-level fall resulting in right ankle pain and inability to bear weight. She was seen in the emergency department and subsequently admitted for further orthopedic management. No head trauma or loss of consciousness reported. She denies use of anticoagulants. Past medical history is notable for CHF and prior smoking history/COPD. No other significant medical comorbidities reported. Lives at Home with her daughter. Reports Right ankle pain 5-12/25 today, NO OTHER JOINT PAIN REPORTED. --- REVIEW OF SYSTEMS: Constitutional: No fever or chills Cardiovascular: Denies chest pain Respiratory: No shortness of breath GI: Denies nausea or vomiting : No urinary complaints Neurologic: No dizziness or focal deficits reported --- PHYSICAL EXAM: General: Elderly female, alert and oriented, resting in bed, in mild distress secondary to pain Right Ankle: Tenderness to palpation over medial and lateral malleoli Moderate swelling, echymosis and edema No open skin lesions Grossly neurovascularly intact distally: Capillary refill <2 seconds Dorsalis pedis pulse palpable Posterior tibial pulse intact Sensation and motor function intact in foot and toes --- IMAGING: Right ankle X-ray reviewed: Displaced bimalleolar fracture involving medial and lateral malleoli No evidence of dislocation No open fracture visualized --- ASSESSMENT: 84-year-old female with a displaced bimalleolar fracture of the right ankle following a ground-level fall. The patient is neurovascularly intact. Surgical fixation is indicated. --- PLAN: Proceed with open reduction and internal fixation (ORIF) of the right medial and lateral malleoli with Shannan Barbour Surgery scheduled for November 30, 2024 Patient to remain [id number] on the right lower extremity NPO after midnight before surgery Splint applied for immobilization Consent obtained after thorough discussion of risks, benefits, and alternatives with the patient - she understands risks include but not exclusive to bleeding infection nerve injury chronic pain nonunion malunion need for further surgery blood clots cardiac and pulmonary compliactions amputation and . She understands and wishes to proceed with surgery. Pain management coordinated with hospitalist team, Can do trial of Ultram , Advised bedside nurse for monitoring patient for any adverse effects from Pain med use , Vital s/s eval and stop medication if any concerns are noted SCDs initiated for DVT prophylaxis Preoperative labs and medical clearance and optimization for Surgery to be accomplished by Hospital team Plan discussed with: Patient, Other (bedside nurse) Visit Coding Surgery Date of Service if different f: November 28, 2024 Billing Provider: JENSEN MAHAJAN Surgery Visit Codes: 88013 - INP CONSULT <55 MIN JENSEN MAHAJAN November 28, 2024 18:29 LUCERO CANELA MD November 30, 2024 08:07
[2024-11-29 05:00] VITALS: BP 144/66; PULSE 83; RESP 20; TEMP 97.9; O2SAT 94
[2024-11-29 08:00] VITALS: O2SAT 93
--- NOTE | 2024-11-29 10:13 | DVHPN2 ---
Reviewed: Care Plan, H&P, Labs, Medications, Previous Orders, Radiology Changes from previous H/P or p: No Changes Objective Vitals Vital Signs Date Time Temp Pulse Resp B/P (MAP) Pulse Ox O2 Delivery O2 Flow Rate FiO2 11/29/24 08:00 93 Nasal Cannula* 4 36 11/29/24 06:11 83 18 130/70 11/29/24 05:00 97.9 97.9 Intake/Output Intake and Output 11/29/24 07:00 Intake Total 100 ml Balance 100 ml Intake Oral 100 ml # Voids 3 Medications Current Medications Medications Dose Ordered Sig/Cris Route Start Time Stop Time Status Last Admin Dose Admin Nitroglycerin 0.4 mg Q5MINP PRN SL 11/27/24 21:45 Hydromorphone HCl 1 mg Q4HPRN PRN IV 11/28/24 04:30 11/29/24 05:41 1 MG Tramadol HCl 50 mg Q8HP PRN PO 11/28/24 18:15 Laboratory Results Laboratory Tests 11/28/24 08:14 Urinalysis Test 11/28/24 01:22 Urine Color Colorless (Yellow) Urine Clarity Clear (Clear) Urine pH 6.5 (5.0-9.0) Urine Specific [place] 1.005 (1.001-1.035) Urine Protein Negative (Negative) Urine Ketones Negative (Negative) Urine Blood Negative /uL (Negative) Urine Nitrite Negative (Negative) Urine Bilirubin Negative (Negative) Urine Urobilinogen Normal mg/dL (Negative) Urine Leukocyte Esterase Negative /uL (Negative) Urine RBC None seen /hpf (0 - 4) Urine Microscopic WBC < 1 /HPF (0-5) Urine Squamous Epithelial Cells Few /hpf (<5) Urine Bacteria None seen /hpf (None Seen) Urine Glucose Normal mg/dL (Normal) Labs and/or images reviewed: Labs reviewed by me, Image(s) reviewed by me Assessment/Plan Assessment/Plan Closed fracture right ankle: Pain medication, consult for Dr. Campbell appreciated. Planning for surgery on 11/30/2024 Hypertension COPD Dementia History of coronary artery disease Patient is hospice revoked Cardiology Dr. Adams cleared for surgery Daughter Beverly [phone] at bedside Advance care planning time 20 mts Plan discussed with: Patient Date of Service: November 29, 2024 Billing Provider: YOLY THOMAS MD Common Visit Codes: [id number] INP/OBS CARE(HIGH) Secondary Visit Codes: [id number] CARE PLAN 30 MINUTES YOLY THOMAS MD November 29, 2024 10:13
[2024-11-29 13:00] VITALS: BP 132/66; PULSE 73; RESP 17; TEMP 97.6; O2SAT 96
[2024-11-29 17:00] VITALS: BP 142/75; PULSE 71; RESP 18; TEMP 98.4; O2SAT 96
--- NOTE | 2024-11-29 17:49 | DVHSR ---
APPROVED REPORT EXAM: Two-dimensional and M-mode echocardiogram with Doppler and color Doppler. Blood Pressure: 138/63 mmHg INDICATION Pre-Op RISK FACTORS Height: 5', Weight: 186 DIMENSIONS LVDd5.5 (3.8-5.7cm)LA (2D)3.8 (1.9-4.0cm)Aortic Root3.1 (2.0-3.7cm) LVDs3.7 (2.5-4.0cm)LA (MM) (1.9-4.0cm)Aortic Cusp Exc1.4 (1.5-2.0cm) EF (%) 61.0 (55-70%)Rt. Atrium3.4 (1.9-4.0cm)Asc. Aorta cm IVSd0.7 (0.7-1.1cm)RV (D)3.4 (1.8-2.4cm) PWd0.8 (0.7-1.1cm) Mitral Valve MitralMitral Stenosis E wave1.31m/sMV Mean GR.mmHg A wave0.88m/sMV Peak GR.mmHg E/A ratio1.52D MVAcm2 DECEL [id number] 1/2 Timems Aortic Valve Aortic ValveAortic Stenosis V11.09m/Sushant Mean GR.8mmHg V21.87m/Sushant Peak GR.14mmHg LVOT Diameter2.1 (1.8-2.4cm)Doppler AVA2.02cm2 Tricuspid Valve TR Velocity2.24m/s [id number] Other Information Quality : Technically LimitedRhythm : Technically limited study due to body habitus. Conclusion Technically good study. Sinus rhythm. Normal chamber sizes. Mild left atrial enlargement on visual inspection. Valves appear to be structurally normal for the most part. There is mild aortic sclerosis without st enosis. Adequate excursion of a trileaflet aortic valve. The mitral and tricuspid appear to be stru cturally normal without overt calcification or thickening. The pulmonic from the limited views obtai andrea appears to be within normal limits. Left ventricular systolic performance is preserved at 60% with normal right ventricular function. Doppler reveals mild mitral and tricuspid regurgitation. No aortic or pulmonic insufficiency. No pericardial effusion. No intracardiac masses thrombi and or vegetations discernible. Vena cava appears to be within normal limits with adequate collapse.
[2024-11-29 20:00] VITALS: PULSE 77; RESP 20; O2SAT 97
[2024-11-29 21:00] VITALS: BP 149/71; PULSE 77; RESP 20; TEMP 97.8; O2SAT 97
[2024-11-30] VITALS (9 sets, daily range): BP systolic 116–174; BP diastolic 69–87; PULSE 66–101; RESP 16–20; TEMP 97.1–98.2; O2SAT 95–97
[2024-11-30] MEDS: LIDOCAINE 1% HCL (LOCAL ANESTH.) INJ 20ML MDV ONE (07:27)
[2024-11-30] MEDS ORDERED: PHENYLEPHRINE HCL 10 MG/ML VL ONE (07:38)
[2024-11-30] MEDS ORDERED: MIDAZOLAM HCL 2MG/2ML 2ml VIAL (1mg/ml) ONE (08:53)
[2024-11-30] MEDS ORDERED: fentaNYL CITRATE 100 MCG/2 ML VL ONE (08:55)
[2024-11-30] MEDS ORDERED: PROPOFOL 10 MG/ML 20 ML IV ONE (08:56)
[2024-11-30] MEDS: ceFAZolin 2 GM/D5W50ml 50 ML IV ONE (09:00)
[2024-11-30] MEDS: BUPIVACAINE HCL 0.25% P/F 10 ML VIAL ONE (09:39)
--- NOTE | 2024-11-30 09:51 | DVHOP2 ---
Operative Report - 2 Report Details Date: 11/30/24 Preop Diagnosis: Right trimalleolar equivalent ankle fracture Postop Diagnosis: Right trimalleolar equivalent ankle fracture Surgeon: Cristi Campbell MD Transfer And Line Up Worker: Messi FLORES Anesthesiologist: Delisa SANDS Anesthesia: Regional Implant: Adrien Distal fibula plate Arthrex tightrope Ossio medial mal screw Consent: The patient was informed of the risks and benefits of the procedure. These include but are not limited to complications of anesthesia, postoperative infection, incomplete relief of symptoms, recurrence of symptoms, damage to blood vessels, nerves and tendons, deep venous thrombosis, pulmonary embolism and possible need for repeat surgery in the future. Indications for Surgery: right trimalleolar equivalent fracture/dislocation with severe instability Name of Procedure Performed Open reduction internal fixation of right trimallelar ankle fracture without posterior mal fixation; intraop fluoro Procedure Details Procedure Details: HISTORY OF PRESENT ILLNESS: Risks/benefits/options and alternatives were discussed in length. Risks associated with anesthesia, infection, damage to nerves and blood vessels, and bleeding or blood clots. Problems after ankle fracture surgery include ankle joint stiffness, weakness, need for further surgery and arthritis. Possible complications after ankle fracture surgery include infection and problems with healing. PROCEDURE: After all potential complications and risks as well as risks and benefits of the above-mentioned procedure was discussed at length with the patient and family, informed consent was obtained. The lower extremity was then confirmed with the operating surgeon, the patient, the nursing staff and Department of Anesthesia. The patient was then transferred to preoperative area in the Operative Suite and placed on the operating room table in supine position. At this time, the anesthesia was performed. All bony prominences were well padded at this time. A nonsterile tourniquet was placed on the left upper thigh of the patient. sterilely prepped and draped in the usual sterile fashion. The right lower extremity was then elevated and exsanguinated using Esmarch and tourniquet was then placed to 250 mmHg. Next, after all bony and soft tissue landmarks were identified, a 6 cm longitudinal incision was made directly over the lateral mal fracture on the right ankle. A sharp dissection was carefully taken down to the level of bone taking care to protect the neurovascular structures. Once the bone was reached, the fractured site was identified. The bony ends were then opened and divided of all hematoma as well as excess periosteum within the fracture site. For the lateral side he had a posterior comminution with a distal diagonal fracture. With manual traction and manipulation with bone reduction clamps we were able to reduce patient fracture. Intraoperative fluoroscopy confirmed reduction. A Fibula plate was then selected for instrumentation with nonlocking/locking through the nail to reduce posterior butterfly fragment. Next Fluorsocpy was used to visualize the hardware placement as well as the fracture reduction appeared to be in good anatomic position, all hardware was in good position. There was lateralization of the so we placed a tightrope based on fluoro tightening. a 1 cm incision made over medial mal. I then placed a medial mal ossio screw at fracture site. Again, Fluoro scan was brought in to confirm placement of the screws. They were in good overall position and there was no lateralization of the joint. At this time, each wound was copiously irrigated and suctioned dry. The wounds were then closed using #2-0 Vicryl suture in subcutaneous fashion followed by 3-0 nylon on the skin. A sterile dressing was applied consistent with Adaptic, 4x4s, Kerlix, and Webril. An ankle splint was then placed on the right lower extremity. The patient was transferred back to the [facility] and to the Postanesthetic Care Unit. The patient tolerated the procedure well. There were no complications. Condition Good Disposition Still a Patient CRISTI CAMPBELL MD November 30, 2024 09:51
[2024-11-30] MEDS ORDERED: ACETAMINOPHEN IV 1000 MG/100ML (10MG/ML) IV PRN (10:15)
[2024-11-30] MEDS: ONDANSETRON HCL 4 MG/2 ML VIAL IV ONE (10:15)
[2024-11-30] MEDS ORDERED: HYDROmorphone HCL 2 MG/ML VL/or syr IV PRN (10:15)
--- NOTE | 2024-11-30 10:27 | DVHPN2 ---
Reviewed: Care Plan, H&P, Labs, Medications, Previous Orders, Radiology Changes from previous H/P or p: No Changes Objective Vitals Vital Signs Date Time Temp Pulse Resp B/P (MAP) Pulse Ox O2 Delivery O2 Flow Rate FiO2 11/30/24 10:05 Room Air 96 11/30/24 10:05 96 11/30/24 09:00 98.0 85 16 159/87 (111) 98.0 11/29/24 20:00 4 Intake/Output Intake and Output 11/30/24 07:00 Intake Total 350 ml Balance 350 ml Intake Oral 350 ml # Voids 3 # Bowel Movements 2 Medications Current Medications Medications Dose Ordered Sig/Cris Route Start Time Stop Time Status Last Admin Dose Admin Nitroglycerin 0.4 mg Q5MINP PRN SL 11/27/24 21:45 Hydromorphone HCl 1 mg Q4HPRN PRN IV 11/28/24 04:30 11/30/24 01:17 1 MG Tramadol HCl 50 mg Q8HP PRN PO 11/28/24 18:15 Cefazolin Sodium 50 ml @ 100 mls/hr Q8HR IV 11/30/24 14:00 12/01/24 06:29 Acetaminophen 1,000 mg [id number] PRN IV 11/30/24 10:15 11/30/24 10:16 UNV Hydromorphone HCl 0.5 mg Q10M PRN IV 11/30/24 10:15 11/30/24 10:56 UNV Laboratory Results Laboratory Tests 11/28/24 08:14 Urinalysis Test 11/28/24 01:22 Urine Color Colorless (Yellow) Urine Clarity Clear (Clear) Urine pH 6.5 (5.0-9.0) Urine Specific [place] 1.005 (1.001-1.035) Urine Protein Negative (Negative) Urine Ketones Negative (Negative) Urine Blood Negative /uL (Negative) Urine Nitrite Negative (Negative) Urine Bilirubin Negative (Negative) Urine Urobilinogen Normal mg/dL (Negative) Urine Leukocyte Esterase Negative /uL (Negative) Urine RBC None seen /hpf (0 - 4) Urine Microscopic WBC < 1 /HPF (0-5) Urine Squamous Epithelial Cells Few /hpf (<5) Urine Bacteria None seen /hpf (None Seen) Urine Glucose Normal mg/dL (Normal) Labs and/or images reviewed: Labs reviewed by me, Image(s) reviewed by me Assessment/Plan Assessment/Plan Closed fracture right ankle: Pain medication, consult for Dr. Campbell appreciated. Status post Open reduction internal fixation of right trimallelar ankle fracture by Dr Campbell on 11-30-24 Hypertension COPD Dementia History of coronary artery disease Patient is hospice revoked Cardiology Dr. Adams cleared for surgery Daughter Beverly [phone] at bedside Physical therapy ordered Plan discussed with: Patient Date of Service: November 30, 2024 Billing Provider: YOLY THOMAS MD Common Visit Codes: [id number] INP/OBS CARE(HIGH) YOLY THOMAS MD November 30, 2024 10:27
--- NOTE | 2024-11-30 10:42 | DVH ---
FLUOROSCOPY TIME: 17 seconds TECHNIQUE: Intraoperative radiographs of the right ankle were obtained. COMPARISON: None FINDINGS: Refer to intraoperative report for further evaluation. IMPRESSION: Refer to intraoperative report for further evaluation.
[2024-11-30] MEDS: ceFAZolin 1GM/50ML 50 ML IV SCH (14:16)
[2024-11-30] MEDS: traMADol HCL 50 MG TAB PO PRN (14:20)
[2024-11-30] MEDS: hydrALAZINE HCL 20 MG/ML VL IV PRN (17:33)
[2024-12-01] VITALS (8 sets, daily range): BP systolic 127–158; BP diastolic 65–78; PULSE 84–104; RESP 17–20; TEMP 97.4–98.5; O2SAT 92–99
[2024-12-01 02:43] LABS: COVID19 ANTIGEN SOFIA FIA NEGATIVE (NEGATIVE)
--- NOTE | 2024-12-01 10:56 | DVHPN2 ---
Reviewed: Care Plan, H&P, Labs, Medications, Previous Orders, Radiology Changes from previous H/P or p: No Changes Objective Vitals Vital Signs Date Time Temp Pulse Resp B/P (MAP) Pulse Ox O2 Delivery O2 Flow Rate FiO2 12/01/24 10:02 86 20 147/70 12/01/24 09:00 98.4 96 98.4 12/01/24 08:00 Nasal Cannula* 4 36 Intake/Output Intake and Output 12/01/24 07:00 Intake Total 1125 ml Balance 1125 ml Intake Oral 1000 ml IV Total 125 ml # Voids 5 # Bowel Movements 5 Medications Current Medications Medications Dose Ordered Sig/Cris Route Start Time Stop Time Status Last Admin Dose Admin Nitroglycerin 0.4 mg Q5MINP PRN SL 11/27/24 21:45 Hydromorphone HCl 1 mg Q4HPRN PRN IV 11/28/24 04:30 12/01/24 10:02 1 MG Tramadol HCl 50 mg Q8HP PRN PO 11/28/24 18:15 11/30/24 14:20 50 MG Hydralazine HCl 10 mg Q6HP PRN IV 11/30/24 16:00 12/01/24 01:27 10 MG Laboratory Results Laboratory Tests 11/28/24 08:14 Urinalysis Test 11/28/24 01:22 Urine Color Colorless (Yellow) Urine Clarity Clear (Clear) Urine pH 6.5 (5.0-9.0) Urine Specific [place] 1.005 (1.001-1.035) Urine Protein Negative (Negative) Urine Ketones Negative (Negative) Urine Blood Negative /uL (Negative) Urine Nitrite Negative (Negative) Urine Bilirubin Negative (Negative) Urine Urobilinogen Normal mg/dL (Negative) Urine Leukocyte Esterase Negative /uL (Negative) Urine RBC None seen /hpf (0 - 4) Urine Microscopic WBC < 1 /HPF (0-5) Urine Squamous Epithelial Cells Few /hpf (<5) Urine Bacteria None seen /hpf (None Seen) Urine Glucose Normal mg/dL (Normal) Labs and/or images reviewed: Labs reviewed by me, Image(s) reviewed by me Assessment/Plan Assessment/Plan Closed fracture right ankle: Pain medication, consult for Dr. Campbell appreciated. Status post Open reduction internal fixation of right trimallelar ankle fracture by Dr Campbell on 11-30-24 Hypertension COPD Dementia History of coronary artery disease Patient is hospice revoked Cardiology Dr. Adams cleared for surgery Daughter Beverly [phone] at bedside Physical therapy ordered Plan discussed with: Patient My Orders Orders - YOLY THOMAS MD Procedure Category Date Status Time Hydralazine Injection PHA 11/30/24 In Process (Apresoline Inject 16:00 Date of Service: December 01, 2024 Billing Provider: YOLY THOMAS MD Common Visit Codes: [id number] INP/OBS CARE(HIGH) YOLY THOMAS MD December 01, 2024 10:56
[2024-12-01] MEDS: OXYCODONE W/ ACETAMINOPHEN 5/325MG TABLET PO PRN (11:31)
[2024-12-01] MEDS: LORazepam 0.5 MG TAB PO PRN (12:42)
[2024-12-02] VITALS (7 sets, daily range): BP systolic 120–177; BP diastolic 69–86; PULSE 93–126; RESP 17–20; TEMP 97.4–99.2; O2SAT 20–98
--- NOTE | 2024-12-02 11:45 | DVHPN2 ---
Reviewed: Care Plan, H&P, Labs, Medications, Previous Orders, Radiology Changes from previous H/P or p: No Changes Objective Vitals Vital Signs Date Time Temp Pulse Resp B/P (MAP) Pulse Ox O2 Delivery O2 Flow Rate FiO2 12/02/24 09:00 98.7 98 18 177/85 (115) 94 98.7 12/02/24 08:00 Nasal Cannula* 4 36 Intake/Output Intake and Output 12/02/24 07:00 Intake Total 900 ml Balance 900 ml Intake Oral 900 ml # Voids 3 # Bowel Movements 2 Medications Current Medications Medications Dose Ordered Sig/Cris Route Start Time Stop Time Status Last Admin Dose Admin Nitroglycerin 0.4 mg Q5MINP PRN SL 11/27/24 21:45 Tramadol HCl 50 mg Q8HP PRN PO 11/28/24 18:15 11/30/24 14:20 50 MG Hydralazine HCl 10 mg Q6HP PRN IV 11/30/24 16:00 12/02/24 08:26 10 MG Oxycodone/ Acetaminophen 1 tab Q4HP PRN PO 12/01/24 11:00 12/02/24 09:51 1 TAB Lorazepam 1 mg Q8HP PRN PO 12/01/24 11:00 12/02/24 08:25 1 MG Laboratory Results Laboratory Tests 11/28/24 08:14 Urinalysis Test 11/28/24 01:22 Urine Color Colorless (Yellow) Urine Clarity Clear (Clear) Urine pH 6.5 (5.0-9.0) Urine Specific [place] 1.005 (1.001-1.035) Urine Protein Negative (Negative) Urine Ketones Negative (Negative) Urine Blood Negative /uL (Negative) Urine Nitrite Negative (Negative) Urine Bilirubin Negative (Negative) Urine Urobilinogen Normal mg/dL (Negative) Urine Leukocyte Esterase Negative /uL (Negative) Urine RBC None seen /hpf (0 - 4) Urine Microscopic WBC < 1 /HPF (0-5) Urine Squamous Epithelial Cells Few /hpf (<5) Urine Bacteria None seen /hpf (None Seen) Urine Glucose Normal mg/dL (Normal) Labs and/or images reviewed: Labs reviewed by me, Image(s) reviewed by me Assessment/Plan Assessment/Plan Closed fracture right ankle: Pain medication, consult for Dr. Campbell appreciated. Status post Open reduction internal fixation of right trimallelar ankle fracture by Dr Campbell on 11-30-24 Hypertension COPD Dementia History of coronary artery disease Patient is hospice revoked Cardiology Dr. Adams cleared for surgery Daughter Beverly [phone] at bedside Physical therapy ordered Plan discussed with: Patient My Orders Orders - YOLY THOMAS MD Procedure Category Date Status Time Initiate Vte DEDE 12/02/24 In Process Prophylaxis 00:01 Date of Service: December 02, 2024 Billing Provider: YOLY THOMAS MD Common Visit Codes: [id number] INP/OBS CARE(HIGH) YOLY THOMAS MD December 02, 2024 11:45
[2024-12-03 01:00] VITALS: BP 156/90; PULSE 98; RESP 18; TEMP 98.1; O2SAT 96
[2024-12-03 05:00] VITALS: BP 147/79; PULSE 63; RESP 18; TEMP 98.2; O2SAT 99
[2024-12-03 08:00] VITALS: RESP 18; O2SAT 96
[2024-12-03 08:49] VITALS: BP 158/65; PULSE 79; RESP 16; TEMP 98; O2SAT 94
--- NOTE | 2024-12-03 11:46 | DVHDS2 ---
Discharge Summary Date of Admission November 27, 2024 at 21:33 Date of Discharge: December 03, 2024 Admitting Diagnosis Right ankle fracture Wounds: Right ankle fracture Labs/Diagnostic Data: Laboratory Results Test 12/01/24 01:30 11/28/24 08:14 11/28/24 01:22 11/27/24 19:03 SARS-CoV-2 Antigen (Rapid) Negative (NEGATIVE) White Blood Count 8.7 10^3/uL (4.4-10.8) Red Blood Count 3.86 10^6/uL (4.0-5.20) Hemoglobin 12.0 g/dL (12.2-16.2) Hematocrit 36.3 % (36.0-46.0) Mean Corpuscular Volume 94.0 fL (80.0-100.0) Mean Corpuscular Hemoglobin 31.0 pg (28.0-32.0) Mean Corpuscular Hemoglobin Concent 33.0 g/dL (32.0-36.0) Red Cell Distribution Width 14.2 % (11.8-14.3) Platelet Count 243 10^3/uL (140-450) Mean Platelet Volume 8.6 fL (6.9-10.8) Neutrophils (%) (Auto) 73.9 % (37.0-80.0) Lymphocytes (%) (Auto) 16.5 % (10.0-50.0) Monocytes (%) (Auto) 7.4 % (0.0-12.0) Eosinophils (%) (Auto) 1.4 % (0.0-7.0) Basophils (%) (Auto) 0.8 % (0.0-2.0) Neutrophils # (Auto) 6.4 10 ^3/uL (1.6-8.6) Lymphocytes # (Auto) 1.4 10 ^3/uL (0.4-5.4) Monocytes # (Auto) 0.6 10 ^3/uL (0-1.3) Eosinophils # (Auto) 0.1 10 ^3/uL (0-0.8) Basophils # (Auto) 0.1 10 ^3/uL (0-0.2) Nucleated Red Blood Cells 0.0 % Prothrombin Time 10.3 sec (9.3-11.8) Prothrombin Time INR 0.97 (0.9-1.15) Sodium Level 140 mmol/L (136-145) Potassium Level 4.1 mmol/L (3.5-5.1) Chloride Level 107 mmol/L (98-107) Carbon Dioxide Level 29 mmol/L (20-31) Anion Gap 4 (5-15) Blood Urea Nitrogen 8 mg/dL (9-23) Creatinine 0.68 mg/dL (0.550-1.02) Glomerular Filtration Rate Calc 87 mL/min (>90) BUN/Creatinine Ratio 11.8 (10.0-20.0) Serum Glucose 103 mg/dL (74-106) Calcium Level 9.1 mg/dL (8.7-10.4) Total Bilirubin 0.5 mg/dL (0.2-1.0) Aspartate Amino Transferase (AST) < 8 U/L (13-40) Alanine Aminotransferase (ALT) < 9 U/L (7-40) Alkaline Phosphatase 120 U/L (46-116) Total Protein 5.8 g/dL (5.7-8.2) Albumin 3.7 g/dL (3.2-4.8) Urine Color Colorless (Yellow) Urine Clarity Clear (Clear) Urine pH 6.5 (5.0-9.0) Urine Specific [place] 1.005 (1.001-1.035) Urine Protein Negative (Negative) Urine Ketones Negative (Negative) Urine Blood Negative /uL (Negative) Urine Nitrite Negative (Negative) Urine Bilirubin Negative (Negative) Urine Urobilinogen Normal mg/dL (Negative) Urine Leukocyte Esterase Negative /uL (Negative) Urine RBC None seen /hpf (0 - 4) Urine Microscopic WBC < 1 /HPF (0-5) Urine Squamous Epithelial Cells Few /hpf (<5) Urine Bacteria None seen /hpf (None Seen) Urine Glucose Normal mg/dL (Normal) Activated Partial Thromboplast Time 29.2 SEC (24.5-34.5) Other Laboratory Tests 11/28/24 08:14 Brief Hx & Hospital Course: 84 year old female with hypertension COPD dementia coronary artery disease cannula hospice had a mechanical fall sustained injury to the right ankle. Underwent ORIF right trimalleolar fracture by In a year on 11/30/2024. Postop course uneventful. Treated with the pain medications and physical therapy Family does not want patient to go to rehab. Discharged back to home on previous hospice per family's wishes. Consults/Reason for consult Orthopedic Dr Campbell Operations or Procedures ORIF right ankle fracture Condition at Discharge: Good Final Diagnosis/Problems List Closed fracture right ankle: Pain medication, consult for Dr. Campbell appreciated. Status post Open reduction internal fixation of right trimallelar ankle fracture by Dr Campbell on 11-30-24 Hypertension COPD Dementia History of coronary artery disease Patient is hospice revoked Cardiology Dr. Adams cleared for surger Discharge Disposition: Hospice - Home Discharge Instruct/Medications Diet: Cardiac 2g Na,low cholest Activity: See Comment Activity comment: Weight-bearing right lower extremity as tolerated Follow Up/Referral: FOLLOW UP WITH THE ORTHOPEDIC DR Campbell in two weeks Medications: None Hospice will provide pain medications Discharge Statement: "Patient was advised to return to the ER or call 911 if any headaches, dizziness, shortness of breath, chest pain, abdominal pain, bleeding, fevers, or worsening of medical condition. Patient was counseled about treatment plan, medications, possible side effects, patientverbalized understanding. All questions were answered to the best of my ability. This discharge took greater then 30 minutes in planning, reviewing documentation, counseling the patient, and discussing with other team members." ASSESSMENT ASSESSMENT Hospital Course Uneventful Assessment Closed fracture right ankle: Pain medication, consult for Dr. Campbell appreciated. Status post Open reduction internal fixation of right trimallelar ankle fracture by Dr Campbell on 11-30-24 Hypertension COPD Dementia History of coronary artery disease Patient is hospice revoked Cardiology Dr. Adams cleared for surger Date of Service: December 03, 2024 Billing Provider: YOLY THOMAS MD Common Visit Codes: [id number] DISCH DAY >30min YOLY THOMAS MD December 03, 2024 11:46
[2024-12-03 13:11] VITALS: BP 126/60; PULSE 84; RESP 19; TEMP 98.1; O2SAT 96
== END 2024-12-03 16:30 | disposition hospice, home (50) | DRG 492 ==
LOC: ER 18:10 → EDBD 18:10 → OVERFLOW 21:33 → WEST WING 11-28 03:20
PROVIDERS: ADMIT Family Medicine; ATTEND Family Medicine
PROC: 0QSG04Z Reposition Right Tibia with Internal Fixation Device, Open Approach (ICD-10-PCS; 2024-11-30)
PROC: 0QSJ04Z Reposition Right Fibula with Internal Fixation Device, Open Approach (ICD-10-PCS; principal; 2024-11-30 08:56)
DX: S82.851A Displaced trimalleolar fracture of right lower leg, initial encounter for closed fracture (principal); J96.21 Acute and chronic respiratory failure with hypoxia; J44.9 Chronic obstructive pulmonary disease, unspecified; F17.200 Nicotine dependence, unspecified, uncomplicated; F03.90 Unspecified dementia, unspecified severity, without behavioral disturbance, psychotic disturbance, mood disturbance, and anxiety; I50.9 Heart failure, unspecified; Z20.822 Contact with and (suspected) exposure to COVID-19; I11.0 Hypertensive heart disease with heart failure; W01.0XXA Fall on same level from slipping, tripping and stumbling without subsequent striking against object, initial encounter; I25.10 Atherosclerotic heart disease of native coronary artery without angina pectoris; Z91.041 Radiographic dye allergy status; Z79.899 Other long term (current) drug therapy; Z79.2 Long term (current) use of antibiotics; Z85.038 Personal history of other malignant neoplasm of large intestine; Z82.49 Family history of ischemic heart disease and other diseases of the circulatory system; Z82.3 Family history of stroke; Z80.0 Family history of malignant neoplasm of digestive organs; Y93.89 Activity, other specified; Y92.89 Other specified places as the place of occurrence of the external cause; Y99.8 Other external cause status
CPT/HCPCS: 36415; 71045; 73590; 73600; 73610; 73620; 73700; 76000; 80053; 81001; 85025; 85610; 85730; 86850; 86900; 86901; 87426; 93306; 96360; 97110; 97163; G0378; J0131; J2003; J2250; J2405; J2704; J3490

== ENCOUNTER 2024-12-24 06:32 | Emergency (ER) | payer OTHER ==
[~2024-12-24] VITALS: Ht 154.9 cm; Wt 75.9 kg
--- NOTE | 2024-12-24 07:02 | ED.PDOC ---
History of Present Illness HPI Comments 84-year-old female presents to the ER in a wheelchair and with primary care history of CHF, COPD, dementia, hypertension Mildred chief complain of preoperation. Patient reports that she has pain in the right lower extremity due from a nail. Patient states that she did see the orthopedic surgeon and they stated that is 'they my need to take out the nail today.' patient has 10/10 pain currently. Denies chills, fever, N/V/D, SOB, CP. No other associated symptoms, modifiers, recent injuries or sick contacts present at this time. Chief Complaint: Lower Extremity Time Seen by MD: 07:00 Primary Care Provider: unknown Reviewed Notes: Nurses Notes, Medications, Allergies Allergies: Coded Allergies: Iodine (Verified Allergy, Mild, RASH, 11/26/20) Home Meds Active Scripts Albuterol Sulfate (Albuterol Sulfate Hfa) 108 Mcg/Act Aer, 108 MCG IN Q4HPRN PRN, #1 AER Prov:ELVA MAYA MD 09/19/24 Methylprednisolone (Medrol Dosepak) 4 Mg Jhony, 4 MG PO UD, #21 TAB UAD Prov:ELVA MAYA MD 09/19/24 Levofloxacin Hemihydrate (LEVAQUIN 500 MG) 500 Mg Tab, 1 TAB PO DAILY, #7 TAB Prov:ELVA MAYA MD 09/19/24 Information Source: Patient Mode of Arrival: Wheelchair Severity: Moderate Duration: Since onset Prehospital treatment: None Past Medical History PAST MEDICAL HISTORY: CHF, COPD, Dementia, HTN Surgical History: Unknown 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: Unknown Family History Family History: Reviewed,noncontributory to illness, Unknown Social History Smoker: Unknown Alcohol: Unknown Drugs: Unknown Lives In: Home, Unknown Constitutional: reports: others (Right lower extremity pain); denies: chills, diaphoresis, fatigue, fever, malaise, sweats, weakness EENTM: denies: blurred vision, double vision, ear bleeding, ear discharge, ear drainage, ear pain, ear ringing, eye pain, eye redness, hearing loss, mouth pain, mouth swelling, nasal discharge, nose bleeding, nose congestion, nose pain, photophobia, tearing, throat pain, throat swelling, voice changes, others Respiratory: denies: cough, hemoptysis, orthopnea, SOB at rest, shortness of breath, SOB with excertion, stridor, wheezing, others Cardiovascular: denies: chest pain, dizzy spells, diaphoresis, Dyspnea on exertion, edema, irregular heart beat, left arm pain, lightheadedness, palpitations, PND, syncope, others Gastrointestinal: denies: abdomen distended, abdominal pain, blood streaked bowels, constipated, diarrhea, dysphagia, difficulty swallowing, hematemesis, melena, nausea, poor appetite, poor fluid intake, rectal bleeding, rectal pain, vomiting, others Genitourinary: denies: abnormal vagina bleeding, burning, dyspareunia, dysuria, flank pain, frequency, hematuria, incontinence, pain, , vagina discharge, urgency, others Neurological: denies: dizziness, fainting, headache, left sided numbness, left sided weakness, numbness, paresthesia, pre-existing deficit, right sided numbness, right sided weakness, seizure, speech problems, tingling, tremors, weakness, others Musculoskeletal: denies: back pain, gout, joint pain, joint swelling, muscle pain, muscle stiffness, neck pain, others Integumetry: denies: bruises, change in color, change in hair/nails, dryness, laceration, lesions, lumps, rash, wounds, others Allergic/Immunocompromised: denies: Difficulty Healing, Frequent Infections, Hives, Itching, others Hematologic/Lymphatic: denies: anemia, blood clots, easy bleeding, easy bruising, swollen glands, others Endocrine: denies: excessive hunger, excessive sweating, excessive thirst, excessive urination, flushing, intolerance to cold, intolerance to heat, unexplained weight gain, unexplained weight loss, others Psychiatric: denies: anxiety, bipolar disorder, depression, hopeless, panic disorder, schizophrenia, sleepless, suicidal, others All Other Systems: Reviewed and Negative Physical Exam General Appearance: No Apparent Distress, Normal HEENT: Normal ENT Inspection, Pharynx Normal, TMs Normal Neck: Full Range of Motion, Non-Tender, Normal, Normal Inspection Respiratory: Chest Non-Tender, Lungs Clear, No Accessory Muscle Use, No Respiratory Distress, Normal Breath Sounds Cardiovascular: No Edema, No JVD, No Murmur, No Gallop, Normal Peripheral Pulses, Regular Rate/Rhythm Breast Exam: Deferred Gastrointestinal: No Organomegaly, Non Tender, No Pulsatile Mass, Normal Bowel Sounds, Soft Genitalia: Deferred Pelvic: Deferred Rectal: Deferred Extremities: No calf tenderness, Normal capillary refill, Normal inspection, Normal range of motion, No pedal edema, Other (Tenderness/to the right lower extremity due from a nail) Musculoskeletal : Apperance: Normal Neurologic: Alert, e merchant II-XII nml as Tested, No Motor Deficits, Normal Affect, Normal Mood, No Sensory Deficits Cerebellar Function: Normal Reflexes: Normal Skin: Dry, Normal Color, Warm Lymphatic: No Adenopathy Was a procedure done? Was a procedure done?: No Differential Dx Considerations may include: Worsening fracture, hardware malfunction X-Ray, Labs, Meds, VS Vital Signs Date Time Temp Pulse Resp B/P (MAP) Pulse Ox O2 Delivery O2 Flow Rate FiO2 12/24/24 08:00 67 12/24/24 08:00 97.8 65 13 122/67 (85) 100 97.8 12/24/24 08:00 Room Air 0 12/24/24 08:00 Nasal Cannula* 2 28 12/24/24 06:35 97.7 74 18 96/47 (63) 92 97.7 Lab Test 12/24/24 07:19 Range/Units White Blood Count 8.6 4.4-10.8 10^3/uL Red Blood Count 3.95 L 4.0-5.20 10^6/uL Hemoglobin 12.3 12.2-16.2 g/dL Hematocrit 36.5 36.0-46.0 % Mean Corpuscular Volume 92.5 80.0-100.0 fL Mean Corpuscular Hemoglobin 31.2 28.0-32.0 pg Mean Corpuscular Hemoglobin Concent 33.7 32.0-36.0 g/dL Red Cell Distribution Width 14.8 H 11.8-14.3 % Platelet Count 183 140-450 10^3/uL Mean Platelet Volume 7.5 6.9-10.8 fL Neutrophils (%) (Auto) 70.9 37.0-80.0 % Lymphocytes (%) (Auto) 17.1 10.0-50.0 % Monocytes (%) (Auto) 7.1 0.0-12.0 % Eosinophils (%) (Auto) 3.7 0.0-7.0 % Basophils (%) (Auto) 1.2 0.0-2.0 % Neutrophils # (Auto) 6.1 1.6-8.6 10 ^3/uL Lymphocytes # (Auto) 1.5 0.4-5.4 10 ^3/uL Monocytes # (Auto) 0.6 0-1.3 10 ^3/uL Eosinophils # (Auto) 0.3 0-0.8 10 ^3/uL Basophils # (Auto) 0.1 0-0.2 10 ^3/uL Nucleated Red Blood Cells 0.0 % Sodium Level 141 136-145 mmol/L Potassium Level 3.3 L 3.5-5.1 mmol/L Chloride Level 103 98-107 mmol/L Carbon Dioxide Level 34 H 20-31 mmol/L Anion Gap 4 L 5-15 Blood Urea Nitrogen 13 9-23 mg/dL Creatinine 0.82 0.550-1.02 mg/dL Glomerular Filtration Rate Calc 71 >90 mL/min BUN/Creatinine Ratio 15.9 10.0-20.0 Serum Glucose 103 74-106 mg/dL Calcium Level 9.4 8.7-10.4 mg/dL Current Medications Medications (Trade) Dose Ordered Sig/Cris Route Start Time Stop Time Status Last Admin Sodium Chloride 1,000 ml @ 1,000 mls/hr Q1H ONCE IV 12/24/24 07:15 12/24/24 08:14 DC 12/24/24 08:17 Ondansetron HCl (Zofran) 4 mg ONCE ONCE IV 12/24/24 07:15 12/24/24 08:13 DC 12/24/24 08:18 Time of 1ST Reevaluation: 07:30 Reevaluation 1ST: Unchanged Patient Education/Counseling: Diagnosis, Treatment, Prognosis Family Education/Counseling: No Family Present Departure 1 Departure Time of Disposition: 10:21 (Patient was evaluated by Orthopedics who recommended patient can be safely discharged in the we will facilitate an outpatient surgery.) Impression: Primary Impression: Right leg pain Disposition: 01 HOME / SELF CARE / HOMELESS Condition: Stable Additional Instructions: It is important to follow up with your orthopedic surgeon. Please do not bear weight on your leg. Critical Care Note Critical Care Time?: No Stability Stability form required: No I personally scribed for NORMAN BECERRA MD ([email or web address]) on 12/24/24 at 07:02. Electronically submitted by Hieu Hawley ([email or web address]). NORMAN BECERRA MD Dec 24, 2024 07:02
[2024-12-24] MEDS: MORPHINE SULFATE 4 MG/ML SYR/VIAL IV ONE (07:15)
[2024-12-24 07:32] LABS: Basophils # (auto) 0.1 10 ^3/uL (0-0.2); Basophils % (auto) 1.2 % (0.0-2.0); Eosinophils # (auto) 0.3 10 ^3/uL (0-0.8); Eosinophils % (auto) 3.7 % (0.0-7.0); Hematocrit 36.5 % (36.0-46.0); Hemoglobin 12.3 g/dL (12.2-16.2); Lymphocytes # (auto) 1.5 10 ^3/uL (0.4-5.4); Lymphocytes % (auto) 17.1 % (10.0-50.0); Mean Corpuscular Hemoglobin 31.2 pg (28.0-32.0); Mean Corpuscular Hgb Conc. 33.7 g/dL (32.0-36.0); Mean Corpuscular Volume 92.5 fL (80.0-100.0); Monocytes # (auto) 0.6 10 ^3/uL (0-1.3); Monocytes % (auto) 7.1 % (0.0-12.0); Neutrophils # (auto) 6.1 10 ^3/uL (1.6-8.6); Neutrophils % (auto) 70.9 % (37.0-80.0); Platelet Count (auto) 183 10^3/uL (140-450); Red Blood Cells 3.95 10^6/uL (4.0-5.20); Red Cell Distribution Width 14.8 % (11.8-14.3); White Blood Cell 8.6 10^3/uL (4.4-10.8)
[2024-12-24 07:33] LABS: Chloride 103 mmol/L (98-107); Sodium 141 mmol/L (136-145)
[2024-12-24 07:34] LABS: Anion Gap 4 (5-15)
[2024-12-24 07:35] LABS: Calcium 9.4 mg/dL (8.7-10.4); Carbon Dioxide 34 mmol/L (20-31); Potassium 3.3 mmol/L (3.5-5.1)
[2024-12-24 07:40] LABS: BUN/Creatinine Ratio 15.9 (10.0-20.0); Blood Urea Nitrogen 13 mg/dL (9-23); Glucose 103 mg/dL (74-106)
--- NOTE | 2024-12-24 07:47 | DVH ---
EXAM: XR Chest, 1 View CLINICAL INDICATION: pre-op TECHNIQUE: Frontal view of the chest. COMPARISON: XY CHEST PORTABLE on DOS: 11/28/24, XY CHEST PORTABLE on DOS: 06/10/23, CHEST PORTABLE o n DOS: 01/04/21, CHEST XRAY 1 VIEW on DOS: 09/10/20, CHEST PORTABLE on DOS: 07/24/20 FINDINGS: LUNGS AND PLEURAL SPACES: Unremarkable. No consolidation. No pneumothorax. HEART: Unremarkable. No cardiomegaly. MEDIASTINUM: Unremarkable. Normal mediastinal contour. BONES/JOINTS: Unremarkable. No acute fracture. OTHER FINDINGS: . IMPRESSION: No acute cardiopulmonary process.
--- NOTE | 2024-12-24 07:52 | DVH ---
CLINICAL INFORMATION: 84 years old, Female; right ankle fracture with worsening pain. TECHNIQUE: 3 views of the right ankle were obtained. COMPARISON: XY R ANKLE 3 VIEW on DOS: 11/27/24. Fluoroscopic intraoperative images dated 11/30/2024. FINDINGS: Postsurgical changes of open reduction internal fixation of the right ankle with compressio n plate and cortical screws transfixing the distal fibula, with syndesmotic fixation system in place. There is up tor 3 mm gap between the distal fibula and proximal aspect of the compression plate. Mor e distally, the compression plate is flush with the lateral cortex of the distal fibula. Surgical shanta dware is otherwise intact. The medial malleolus fracture demonstrates up to 6 mm gap between the prox imal and distal fracture components. Previously seen posterior malleolus fracture is partially obscur ed by the distal fibular compression plate on the lateral view. No new acute fracture. There is moder ate soft tissue swelling around the ankle. Adjacent soft tissues are unremarkable. IMPRESSION: 1. Postsurgical changes of open reduction internal fixation of the right ankle as described above. Th ere is up to 3 mm gap between the proximal aspect of the compression plate in the lateral cortex of t he distal fibula, of uncertain clinical significance, with the more distal aspect of the compression plate abutting the lateral cortex of the lateral malleolus. Correlate with clinical findings. Surgica l hardware is otherwise intact. 2. Medial malleolus fracture as described above with up to 6 mm gap between the proximal and distal f racture components. 3. No new acute fracture visualized.
[2024-12-24 08:00] VITALS: TEMP 97.8
[2024-12-24] MEDS: SODIUM CHLORIDE 0.9% 1,000 ML IV ONE (08:17)
[2024-12-24] MEDS: ONDANSETRON HCL 4 MG/2 ML VIAL IV ONE (08:18)
[2024-12-24 10:00] VITALS: BP 133/70; PULSE 78; RESP 13; O2SAT 90
== END 2024-12-24 10:45 | disposition home or self-care (01) ==
LOC: ER 06:32
DX: M79.661 Pain in right lower leg (principal); I11.0 Hypertensive heart disease with heart failure; I50.9 Heart failure, unspecified; J44.9 Chronic obstructive pulmonary disease, unspecified
CPT/HCPCS: 36415; 71045; 73610; 80048; 85025; 96361; 96374; 99284; J2270; J2405; J7030

== ENCOUNTER 2025-01-13 07:13 | Inpatient (IN) | payer OTHER ==
[~2025-01-13] VITALS: Ht 154.9 cm; Wt 82.5 kg
--- NOTE | 2025-01-13 07:32 | ED.PDOC ---
History of Present Illness HPI Comments 84-year-old female presents with a chief complaint of right ankle pain s/p surgery x last week. Patient is here to be admitted to the hospital for a revision surgery on her right ankle. Patient has a screw that is coming out of its place and is causing her pain. Patient is to have surgery today. Chief Complaint: Lower Extremity Time Seen by MD: 07:26 Primary Care Provider: unknown Reviewed Notes: Medications, Allergies Allergies: Coded Allergies: Iodine (Verified Allergy, Mild, RASH, 11/26/20) Home Meds Active Scripts Albuterol Sulfate (Albuterol Sulfate Hfa) 108 Mcg/Act Aer, 108 MCG IN Q4HPRN PRN, #1 AER Prov:ELVA MAYA MD 09/19/24 Methylprednisolone (Medrol Dosepak) 4 Mg Jhony, 4 MG PO UD, #21 TAB UAD Prov:ELVA MAYA MD 09/19/24 Levofloxacin Hemihydrate (LEVAQUIN 500 MG) 500 Mg Tab, 1 TAB PO DAILY, #7 TAB Prov:ELVA MAYA MD 09/19/24 Information Source: Patient Mode of Arrival: Ambulatory Severity: Moderate Timing: Days Duration: Since onset Prehospital treatment: None Past Medical History PAST MEDICAL HISTORY: CHF, COPD, Dementia, HTN Surgical History: Unknown 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 Family History Family History: Reviewed,noncontributory to illness, Unknown Social History Smoker: Unknown Alcohol: Unknown Drugs: Unknown Lives In: Home, Unknown Constitutional: denies: chills, diaphoresis, fatigue, fever, malaise, sweats, weakness, others EENTM: denies: blurred vision, double vision, ear bleeding, ear discharge, ear drainage, ear pain, ear ringing, eye pain, eye redness, hearing loss, mouth pain, mouth swelling, nasal discharge, nose bleeding, nose congestion, nose pain, photophobia, tearing, throat pain, throat swelling, voice changes, others Respiratory: denies: cough, hemoptysis, orthopnea, SOB at rest, shortness of breath, SOB with excertion, stridor, wheezing, others Cardiovascular: denies: chest pain, dizzy spells, diaphoresis, Dyspnea on exertion, edema, irregular heart beat, left arm pain, lightheadedness, palpitations, PND, syncope, others Gastrointestinal: denies: abdomen distended, abdominal pain, blood streaked bowels, constipated, diarrhea, dysphagia, difficulty swallowing, hematemesis, melena, nausea, poor appetite, poor fluid intake, rectal bleeding, rectal pain, vomiting, others Genitourinary: denies: abnormal vagina bleeding, burning, dyspareunia, dysuria, flank pain, frequency, hematuria, incontinence, pain, , vagina discharge, urgency, others Neurological: denies: dizziness, fainting, headache, left sided numbness, left sided weakness, numbness, paresthesia, pre-existing deficit, right sided n umbness, right sided weakness, seizure, speech problems, tingling, tremors, weakness, others Musculoskeletal: denies: back pain, gout, joint pain, joint swelling, muscle pain, muscle stiffness, neck pain, others Integumetry: denies: bruises, change in color, change in hair/nails, dryness, laceration, lesions, lumps, rash, wounds, others Allergic/Immunocompromised: denies: Difficulty Healing, Frequent Infections, Hives, Itching, others Hematologic/Lymphatic: denies: anemia, blood clots, easy bleeding, easy bruising, swollen glands, others Endocrine: denies: excessive hunger, excessive sweating, excessive thirst, excessive urination, flushing, intolerance to cold, intolerance to heat, unexplained weight gain, unexplained weight loss, others Psychiatric: denies: anxiety, bipolar disorder, depression, hopeless, panic disorder, schizophrenia, sleepless, suicidal, others All Other Systems: Reviewed and Negative ( PER HPI) Physical Exam General Appearance: Moderate Distress, Normal HEENT: Normal ENT Inspection, Pharynx Normal, TMs Normal Neck: Full Range of Motion, Non-Tender, Normal, Normal Inspection Respiratory: Chest Non-Tender, Lungs Clear, No Accessory Muscle Use, No Respiratory Distress, Normal Breath Sounds Cardiovascular: No Edema, No JVD, No Murmur, No Gallop, Normal Peripheral Pulses, Regular Rate/Rhythm Breast Exam: Deferred Gastrointestinal: No Organomegaly, Non Tender, No Pulsatile Mass, Normal Bowel Sounds, Soft Genitalia: Deferred Pelvic: Deferred Rectal: Deferred Extremities: No calf tenderness, Normal capillary refill, Normal range of motion, Non-tender, No pedal edema, Other (Cast right ankle) Musculoskeletal : Apperance: Normal Neurologic: Alert, optical systems engineer II-XII nml as Tested, No Motor Deficits, Normal Affect, Normal Mood, No Sensory Deficits Cerebellar Function: NOT DONE Reflexes: NOT DONE Skin: Dry, Normal Color, Warm Peripheral Pulses: 3+ Radial (R), 3+ Radial (L) Lymphatic: No Adenopathy Was a procedure done? Was a procedure done?: No Differential Dx Considerations may include: Postsurgical complication X-Ray, Labs, Meds, VS Vital Signs Date Time Temp Pulse Resp B/P (MAP) Pulse Ox O2 Delivery O2 Flow Rate FiO2 01/13/25 07:24 98.1 92 18 134/67 (89) 95 98.1 Patient alert. Came in because of complication of postsurgical right ankle surgery. Vitals stable. Answering questions. EKG does not show any acute changes. Good skin color. Revision of her surgery. Reviewed her previous visit. Explained to the family. Continue monitoring. Time of 1ST Reevaluation: 07:56 Reevaluation 1ST: Unchanged Patient Education/Counseling: Diagnosis, Treatment, Need For Follow Up Family Education/Counseling: No Family Present SEPSIS Sepsis Screen Physician Orders Complete Blood Count (01/13/25 07:31) Chest Portable (01/13/25 07:31) Urinalysis (01/13/25 07:31) Basic Metabolic Panel (01/13/25 07:31) Vital Signs Date Time Temp Pulse Resp B/P (MAP) Pulse Ox O2 Delivery O2 Flow Rate FiO2 01/13/25 07:24 98.1 92 18 134/67 (89) 95 98.1 Departure 1 Departure Time of Disposition: 07:41 Impression: Primary Impression: Closed right ankle fracture Qualified Codes: S82.891S - Other fracture of right lower leg, sequela Disposition: 09 ADMITTED INPATIENT Admit to: Med Surg Condition: Guarded Critical Care Note Critical Care Time?: No Stability Stability form required: No Heart Score Heart Score: Heart Score Response (Comments) Value History Slightly Suspicious 0 EKG Normal 0 Age >65 2 Risk Factors >3 or Hx ASHD 2 Troponin N/A 0 Total 4 I personally scribed for ANGELA FIELDS MD ([email or web address]) on 01/13/25 at 07:32. Electronically submitted by Td Jara ([email or web address]). ANGELA FIELDS MD Jan 13, 2025 07:32
--- NOTE | 2025-01-13 08:00 | DVH ---
XY CHEST PORTABLE, HISTORY: sob COMPARISON: XY CHEST PORTABLE on DOS: 12/24/24, XY CHEST PORTABLE on DOS: 11/28/24, XY CHEST PORTABLE on DOS: 06/10/23 XY CHEST PORTABLE on DOS: 12/24/24, XY CHEST PORTABLE on DOS: 11/28/24, XY CHEST PORTABLE on DOS: TECHNICAL DATA: 1 view of the chest was obtained. FINDINGS: Lines and tubes: None Cardiomediastinal silhouette: normal Pulmonary vasculature: normal Lung expansion: normal Lung airspace: normal Lung interstitium: normal Pleura: normal Pneumothorax: no Bones: Unremarkable Other: no IMPRESSION: No acute intrathoracic abnormality.
[2025-01-13 08:13] LABS: Hematocrit 38.1 % (36.0-46.0); Hemoglobin 12.9 g/dL (12.2-16.2); Mean Corpuscular Hemoglobin 31.2 pg (28.0-32.0); Mean Corpuscular Volume 92.0 fL (80.0-100.0); Nucleated Red Blood Cells % 0.0 %
[2025-01-13 08:19] LABS: Chloride 103 mmol/L (98-107); Sodium 138 mmol/L (136-145)
[2025-01-13 08:20] LABS: Anion Gap 6 (5-15); Calcium 9.2 mg/dL (8.7-10.4); Carbon Dioxide 29 mmol/L (20-31)
[2025-01-13 08:23] LABS: Potassium 3.0 mmol/L (3.5-5.1)
[2025-01-13 08:25] LABS: BUN/Creatinine Ratio 14.3 (10.0-20.0); Blood Urea Nitrogen 11 mg/dL (9-23); Glucose 97 mg/dL (74-106)
--- NOTE | 2025-01-13 08:40 | ECG ---
[facility] Test Date: 2025-01-13 Test Time: 07:27:15 Pat Name: JAMAR ALBRIGHT Department: ER Room: 0293 Gender: F Dianeticist: CINTHIA : 1940 Requested By: ANGELA FIELDS Order Number: [id number] Reading MD: Doyle Mckeon Measurements Intervals [place] Rate: 79 P: -64 GA: 144 QRS: -11 QRSD: 81 T: 13 QT: 399 QTc: 458 Interpretive Statements Unknown rhythm, irregular rate Low voltage, precordial leads Electronically Signed On 01-18-2025 9:37:27 PDT by Doyle Mckeon Please click the below link to view image of tracing.
[2025-01-13 09:32] VITALS: PULSE 78; O2SAT 93
[2025-01-13] MEDS ORDERED: ACETAMINOPHEN 325 MG TAB PO PRN (11:30)
[2025-01-13] MEDS ORDERED: ONDANSETRON HCL 4 MG/2 ML VIAL IV PRN (11:30)
--- NOTE | 2025-01-13 11:35 | DVHHP2 ---
History of Present Illness Reason for Visit: Right ankle pain History of Present Illness An 84-year-old female presents to the emergency department with a chief complaint of right ankle pain. She has a history of right trimalleolar equivalent ankle fracture sustained after a fall on 11/29/24. She was evaluated in the ED at that time and was diagnosed with a right ankle fracture. She underwent initial orthopedic management, and a revision procedure is now scheduled for tomorrow morning with Dr. Campbell. The patient continues to report localized pain to the right ankle but denies any new trauma. Past medical history of significant for chronic obstructive pulmonary disease, hypertension, hyperlipidemia, CHF dementia, and obesity Past Medical History As stated in HPI Past Surgical History Status post right trimalleolar equivalent ankle fracture repair Back surgery Cholecystectomy Family History Reviewed, non-contributory to the management of this case. Past Social History The patient lives at home, denies smoking, alcohol or illicit drugs abuse. Review of Systems Constitutional: Yes: Malaise Eyes: No: Pain, Vision change, Conjunctivae inflammation, Eyelid inflammation, Other, Redness ENT: No: Ear pain, Ear discharge, Nose pain, Nose discharge, Nose congestion, Mouth pain, Mouth swelling, Throat pain, Throat swelling, Other Respiratory: No: Cough, Dry, Shortness of breath, SOB with excertion, Wheezing, Hemoptysis, Pleuritic Pain, Sputum, Wheezing, Other Cardiovascular: No: Chest Pain, Palpitations, Orthopnea, Paroxysmal Noc. Dyspnea, Edema, Lt Headedness, Other Gastrointestinal: No: Nausea, Vomiting, Abdominal Pain, Diarrhea, Constipation, Melena, Hematochezia, Other Genitourinary: No Dysuria, No Frequency, No Incontinence, No Hematuria, No Retention, No Other Musculoskeletal: foot pain (Positive for right ankle pain, denies new injury); No: other, neck pain, shoulder pain, arm pain, back pain, hand pain, leg pain Skin: No: Rash, Lesions, Jaundice, Bruising, Other Neurological: No: Weakness, Numbness, Incoordination, Change in speech, Confusion, Seizures, Other Allergies: Coded Allergies: Iodine (Verified Allergy, Mild, RASH, 11/26/20) Exam Vital Signs Vital Signs Date Time Temp Pulse Resp B/P (MAP) Pulse Ox O2 Delivery O2 Flow Rate FiO2 01/13/25 09:32 78 93 Room Air* 0 21 01/13/25 09:30 29 154/57 (89) 01/13/25 07:24 98.1 98.1 General Appearance: Alert, Oriented X3, Cooperative, mild distress HEENT: Atraumatic, PERRLA, EOMI Respiratory: Clear to auscultation, Normal air movement Cardiovascular: Regular rate, Normal S1, Normal S2 Abdominal: Normal bowel sounds, Soft, No tenderness Extremities: No clubbing, No cyanosis, No edema, Normal pulses, Other (Right an kle in cast, noted mild swelling in the foot, limited range of motion due to pain, cap refill normal dorsalis pedis pulses strong and palpable) Skin: No rashes, No breakdown Neuro: Normal tone Psych/Mental Status: Mental status NL Labs/Xrays Labs Test 01/13/25 08:03 Range/Units White Blood Count 9.0 4.4-10.8 10^3/uL Red Blood Count 4.14 4.0-5.20 10^6/uL Hemoglobin 12.9 12.2-16.2 g/dL Hematocrit 38.1 36.0-46.0 % Mean Corpuscular Volume 92.0 80.0-100.0 fL Mean Corpuscular Hemoglobin 31.2 28.0-32.0 pg Mean Corpuscular Hemoglobin Concent 33.9 32.0-36.0 g/dL Red Cell Distribution Width 14.6 H 11.8-14.3 % Platelet Count 164 140-450 10^3/uL Mean Platelet Volume 7.8 6.9-10.8 fL Neutrophils (%) (Auto) 67.9 37.0-80.0 % Lymphocytes (%) (Auto) 22.3 10.0-50.0 % Monocytes (%) (Auto) 6.4 0.0-12.0 % Eosinophils (%) (Auto) 2.4 0.0-7.0 % Basophils (%) (Auto) 1.0 0.0-2.0 % Neutrophils # (Auto) 6.1 1.6-8.6 10 ^3/uL Lymphocytes # (Auto) 2.0 0.4-5.4 10 ^3/uL Monocytes # (Auto) 0.6 0-1.3 10 ^3/uL Eosinophils # (Auto) 0.2 0-0.8 10 ^3/uL Basophils # (Auto) 0.1 0-0.2 10 ^3/uL Nucleated Red Blood Cells 0.0 % Sodium Level 138 136-145 mmol/L Potassium Level 3.0 L 3.5-5.1 mmol/L Chloride Level 103 98-107 mmol/L Carbon Dioxide Level 29 20-31 mmol/L Anion Gap 6 5-15 Blood Urea Nitrogen 11 9-23 mg/dL Creatinine 0.77 0.550-1.02 mg/dL Glomerular Filtration Rate Calc 77 >90 mL/min BUN/Creatinine Ratio 14.3 10.0-20.0 Serum Glucose 97 74-106 mg/dL Calcium Level 9.2 8.7-10.4 mg/dL PROCEDURE(s): CXRP - CHEST PORTABLE REASON: sob ORDER NUMBER(s): [id number], ACCESSION NUMBER(s): [id number] XY CHEST PORTABLE, HISTORY: sob COMPARISON: XY CHEST PORTABLE on DOS: 12/24/24, XY CHEST PORTABLE on DOS: 11/28/24, XY CHEST PORTABLE on DOS: 06/10/23 XY CHEST PORTABLE on DOS: 12/24/24, XY CHEST PORTABLE on DOS: 11/28/24, XY CHEST PORTABLE on DOS: 06/10/23 TECHNICAL DATA: 1 view of the chest was obtained. FINDINGS: Lines and tubes: None Cardiomediastinal silhouette: normal Pulmonary vasculature: normal Lung expansion: normal Lung airspace: normal Lung interstitium: normal Pleura: normal Pneumothorax: no Bones: Unremarkable Other: no IMPRESSION: No acute intrathoracic abnormality. Assessment/Plan Assessment/Plan # Acute pain right ankle pain s/p right trimalleolar equivalent ankle fracture # hx of falls Admit to med/surg unit Consult Orhto Dr. Campbell NPO after midnight Pain control High-fall risk precautions # hypertension # hyperlipidemia Hydralazine prn Monitor BP # history of CHF Recent EF 60% Continue Lasix # Obesity Lifestyle modification counseled # hx of COPD O2 supplement as needed Med neb p.r.n. DVT prophylaxis Medical plan discussed with patient Plan discussed with: Patient My Orders Orders - JULIETTE RAMOS GEOMAGNETICIAN Procedure Category Date Status Time Admit ADMIT 01/13/25 Transmitted 11:30 Code Status CODE 01/13/25 Transmitted 11:30 0.9% Ns 1000 Ml PHA 01/13/25 Transmitted 11:30 Hydrocodone-Acet PHA 01/13/25 Transmitted 5/325mg Tab ([place] 11:30 Ondansetron Hcl PHA 01/13/25 Transmitted (Zofran) 11:30 Fall Risk Precautions DEDE 01/13/[address] 11:30 Complete Blood Count LAB 01/14/25 Verified 04:00 Comprehensive LAB 01/14/25 Verified Metabolic Panel 04:00 Cardiac DIET 01/13/25 Transmitted Diet-2gna,Lofat,Lochol Lunch Condition: Fair DEDE 01/13/25 Transmitted 11:30 Acetaminophen Tablet PHA 01/13/25 Transmitted (Tylenol Tablet) 11:30 Morphine Sulfate PHA 01/13/25 Transmitted Injection 11:30 Lovenox 30mg PHA 01/13/25 Verified 11:[address] *[address] Colin CONS 01/13/25 Verified Shannan 11:30 Npo After Midnight DEDE 01/13/25 Verified 11:30 Npo (Nothing By DIET 01/14/25 Verified Mouth) Diet Breakfast Date of Service: Jan 13, 2025 Billing Provider: JULIETTE RAMOSP Common Visit Codes: [id number] INP/OBS CARE (HIGH) JULIETTE RAMOS GEOMAGNETICIAN Jan 13, 2025 11:34
[2025-01-13] MEDS: SODIUM CHLORIDE 0.9% 1,000 ML IV SCH (12:13)
[2025-01-13] MEDS: ENOXAPARIN SOD 30 MG/0.3 ML SYRINGE SC SCH (12:14)
[2025-01-13 12:45] VITALS: BP 154/57; PULSE 81; RESP 18; O2SAT 91
[2025-01-13] MEDS: MORPHINE SULFATE INJ 2 MG/ml SYRG IV PRN (15:59)
[2025-01-13 18:26] VITALS: BP 143/71; PULSE 85; RESP 16; TEMP 98.1; O2SAT 91
[2025-01-13] MEDS: HYDROcodone-ACET 5/325MG TAB PO PRN (19:26)
[2025-01-13 20:00] VITALS: PULSE 74; RESP 18; O2SAT 96
[2025-01-13 21:00] VITALS: BP 162/87; PULSE 74; RESP 18; TEMP 97.6; O2SAT 96
[2025-01-13 22:41] VITALS: O2SAT 94
[2025-01-13] MEDS ORDERED: LOSA-534 PO (23:58)
[2025-01-14] VITALS (11 sets, daily range): BP systolic 134–172; BP diastolic 72–97; PULSE 76–89; RESP 14–20; TEMP 97.8–98.7; O2SAT 93–100
[2025-01-14] MEDS ORDERED: CLON0.2D6 PO
[2025-01-14] MEDS ORDERED: METO-158 PO (00:01)
[2025-01-14] MEDS ORDERED: ESCI20TA PO (00:02)
[2025-01-14] MEDS ORDERED: FURO1TAB31 PO (00:03)
[2025-01-14] MEDS ORDERED: ATOR40TA52 PO (00:03)
[2025-01-14] MEDS ORDERED: PANT40TA2 PO (00:04)
[2025-01-14] MEDS ORDERED: GABA-1250 PO (00:05)
[2025-01-14] MEDS ORDERED: ZOFR4T PO (00:06)
[2025-01-14] MEDS ORDERED: PERCOT PO (00:08)
[2025-01-14] MEDS ORDERED: LORA-655 PO (00:08)
[2025-01-14] MEDS ORDERED: FLUT1AER6 IN (00:09)
[2025-01-14] MEDS ORDERED: FENT25DI2 TD (00:10)
--- NOTE | 2025-01-14 07:03 | DVHINCON2 ---
Date of service: Jan 13, 2025 Reason for Consultation 84 yo F complains of right ankle pain History of Present Illness 84 yo F with hx of ORIF right ankle 6 weeks ago. Patient initially doing well but pain started to get worse. She did have a twisting injury when she was going to the restroom. Past Medical History chronic obstructive pulmonary disease, hypertension, hyperlipidemia, CHF dementia, and obesity Family History: Colon cancer G8 FATHER FHx: cardiovascular disease G8 MOTHER Hypertension G8 FATHER Stroke Unknown Allergies: Coded Allergies: Iodine (Verified Allergy, Mild, RASH, 11/26/20) Home Meds Active Scripts Albuterol Sulfate (Albuterol Sulfate Hfa) 108 Mcg/Act Aer, 108 MCG IN Q4HPRN PRN, #1 AER Prov:ELAV MAYA MD 09/19/24 Methylprednisolone (Medrol Dosepak) 4 Mg Jhony, 4 MG PO UD, #21 TAB UAD Prov:ELVA MAYA MD 09/19/24 Levofloxacin Hemihydrate (LEVAQUIN 500 MG) 500 Mg Tab, 1 TAB PO DAILY, #7 TAB Prov:ELVA MAYA MD 09/19/24 Reported Medications Fentanyl (Fentanyl) 25 Mcg/Hr Dis, 25 MCG TD Q72HR, DIS 01/14/25 Fluticasone-Salmeterol (Wixela Inhub 250-50 Mcg/Dose) 1 Aer Aer, 1 AER IN BID, AER 01/14/25 Lorazepam (Ativan) 0.5 Mg Tab, 1 TAB PO Q6HP PRN for ANXIETY, #30 TAB 01/14/25 Oxycodone W/ Acetaminophen (Percocet 5/325MG) 1 Tab Tb, 2 TAB PO Q4HP PRN for PAIN SCALE 7 THRU 10, #120 TAB 01/14/25 Ondansetron Odt 4MG Tab (ZOFRAN PO) 4 Mg Tb, 4 MG PO Q6HPRN PRN for NAUSEA / VOMITING, TAB ODT TAB-DISSOLVE IN MOUTH, THEN SWALLOW 01/14/25 Gabapentin (Gabapentin) 300 Mg Cap, 300 MG PO TID for 30 Days, MG 01/14/25 Pantoprazole Sodium Sesquihydr (Protonix) 40 Mg Tab, 40 MG PO DAILY, #30 TAB 01/14/25 Furosemide (Lasix) 40 Mg Tab, 40 MG PO DAILY, TAB 01/14/25 Atorvastatin Calcium (ATORVASTATIN CALCIUM) 40 Mg Tab, 1 TAB PO DAILY, #30 TAB 5 Refills 01/14/25 Escitalopram Oxalate (Lexapro) 20 Mg Tab, 1 TAB PO DAILY, #90 TAB 3 Refills 01/14/25 Metoprolol Tartrate (Metoprolol Tartrate) 50 Mg Tab, 50 MG PO PRN for 30 Days, MG 01/14/25 Clonidine Hydrochloride (Clonidine Hcl) 0.2 Mg/24 Hr Dis, 0.2 MG PO DAILY for 30 Days, MG 01/14/25 Losartan Potassium (Losartan Potassium) 50 Mg Tab, 1 TAB PO DAILY, #30 TAB 5 Refills 01/13/25 Current Medications Current Medications Medications (Trade) Dose Ordered Sig/Cris Route PRN Reason Start Time Stop Time Status Last Admin Sodium Chloride 1,000 ml @ 60 mls/hr [id number] IV 01/13/25 11:30 01/14/25 05:47 Acetaminophen/ Hydrocodone Bitart ([place] 5/325MG Tab) 1 tab Q4HP PRN PO MODERATE PAIN (4-6 PAIN SCALE) 01/13/25 11:30 01/13/25 19:26 Ondansetron HCl (Zofran) 4 mg Q4HP PRN IV NAUSEA / VOMITING 01/13/25 11:30 Acetaminophen (Tylenol Tablet) 650 mg Q6HP PRN PO PAIN SCALE 1-3 OR TEMP>100.4 01/13/25 11:30 Morphine Sulfate 2 mg Q4HPRN PRN IV SEVERE PAIN (7-10 PAIN SCALE) 01/13/25 11:30 01/13/25 21:15 Enoxaparin Sodium (Lovenox) 30 mg DAILY SC 01/13/25 11:30 01/13/25 12:14 Hydralazine HCl (Apresoline Injection) 10 mg Q6HP PRN IV SBP>150 01/13/25 12:00 Albuterol (Ventolin Medneb) 2.5 mg Q4HPRN PRN NEB SHORTNESS OF BREATH 01/13/25 12:00 Ipratropium [place] (Atrovent Medneb) 0.5 mg Q4HPRN PRN NEB SHORTNESS OF BREATH 01/13/25 12:00 Review of Systems 10 point ROS as per HPI Vital Signs Vital Signs Date Time Temp Pulse Resp B/P (MAP) Pulse Ox O2 Delivery O2 Flow Rate FiO2 01/14/25 05:00 97.8 89 18 169/75 (106) 97 97.8 01/13/25 22:41 Nasal Cannula* 2 28 Physical Exam NAD RLE: inc cdi +ehl/fhl foot wwp Labs/Diagnostic Data Labs Test 01/13/25 08:03 Range/Units White Blood Count 9.0 4.4-10.8 10^3/uL Red Blood Count 4.14 4.0-5.20 10^6/uL Hemoglobin 12.9 12.2-16.2 g/dL Hematocrit 38.1 36.0-46.0 % Mean Corpuscular Volume 92.0 80.0-100.0 fL Mean Corpuscular Hemoglobin 31.2 28.0-32.0 pg Mean Corpuscular Hemoglobin Concent 33.9 32.0-36.0 g/dL Red Cell Distribution Width 14.6 H 11.8-14.3 % Platelet Count 164 140-450 10^3/uL Mean Platelet Volume 7.8 6.9-10.8 fL Neutrophils (%) (Auto) 67.9 37.0-80.0 % Lymphocytes (%) (Auto) 22.3 10.0-50.0 % Monocytes (%) (Auto) 6.4 0.0-12.0 % Eosinophils (%) (Auto) 2.4 0.0-7.0 % Basophils (%) (Auto) 1.0 0.0-2.0 % Neutrophils # (Auto) 6.1 1.6-8.6 10 ^3/uL Lymphocytes # (Auto) 2.0 0.4-5.4 10 ^3/uL Monocytes # (Auto) 0.6 0-1.3 10 ^3/uL Eosinophils # (Auto) 0.2 0-0.8 10 ^3/uL Basophils # (Auto) 0.1 0-0.2 10 ^3/uL Nucleated Red Blood Cells 0.0 % Sodium Level 138 136-145 mmol/L Potassium Level 3.0 L 3.5-5.1 mmol/L Chloride Level 103 98-107 mmol/L Carbon Dioxide Level 29 20-31 mmol/L Anion Gap 6 5-15 Blood Urea Nitrogen 11 9-23 mg/dL Creatinine 0.77 0.550-1.02 mg/dL Glomerular Filtration Rate Calc 77 >90 mL/min BUN/Creatinine Ratio 14.3 10.0-20.0 Serum Glucose 97 74-106 mg/dL Calcium Level 9.2 8.7-10.4 mg/dL Plan/Recommendation Right ankle trimalloelar ankle fracture dislocation sp ORIF with hardware loosening 1. Plan for revision open reduction internal fixation of right ankle fracture Risks benefits options and alternatives reviewed in depth. Risks include but not limited to bleeding infection nerve injury hardware failure nonunion malunion chronic pain blood clots cardiac and pulmonary complications amputation and . Patient understands the risks and wishes to proceed. 2. NPO/IVF 3. Pain control Plan discussed with: Patient LUCERO CANELA MD Jan 14, 2025 07:03
[2025-01-14 07:37] LABS: Albumin 3.8 g/dL (3.2-4.8); Anion Gap 8 (5-15); BUN/Creatinine Ratio 12.3 (10.0-20.0); Bilirubin, Total 0.6 mg/dL (0.2-1.0); Calcium 9.8 mg/dL (8.7-10.4); Carbon Dioxide 28 mmol/L (20-31); Potassium 3.7 mmol/L (3.5-5.1); Sodium 143 mmol/L (136-145); Total Protein 6.0 g/dL (5.7-8.2)
[2025-01-14 07:38] LABS: Alanine Aminotransferase < 9 U/L (7-40); Alkaline Phosphatase 127 U/L (46-116); Blood Urea Nitrogen 7 mg/dL (9-23); Chloride 107 mmol/L (98-107); Glucose 112 mg/dL (74-106)
[2025-01-14 07:41] LABS: Hematocrit 38.9 % (36.0-46.0); Hemoglobin 13.4 g/dL (12.2-16.2); Mean Corpuscular Hemoglobin 31.7 pg (28.0-32.0); Mean Corpuscular Volume 92.2 fL (80.0-100.0); Nucleated Red Blood Cells % 0.2 %
[2025-01-14] MEDS: hydrALAZINE HCL 20 MG/ML VL IV PRN (09:01)
[2025-01-14] MEDS ORDERED: GLYCOPYRROLATE 0.2 MG/ML 1ML VIAL ONE (09:13)
[2025-01-14] MEDS ORDERED: LIDOCAINE 2% (LOCAL ANESTH.) PF 5ml SDV ONE (09:13)
[2025-01-14] MEDS ORDERED: fentaNYL CITRATE 100 MCG/2 ML VL ONE (09:13)
[2025-01-14] MEDS ORDERED: PHENYLEPHRINE HCL 10 MG/ML VL ONE (09:13)
[2025-01-14] MEDS ORDERED: HYDROmorphone HCL 2 MG/ML VL/or syr ONE (09:13)
[2025-01-14] MEDS ORDERED: PROPOFOL 10 MG/ML 20 ML IV ONE (09:13)
[2025-01-14] MEDS ORDERED: ONDANSETRON HCL 4 MG/2 ML VIAL ONE (09:13)
[2025-01-14] MEDS ORDERED: MIDAZOLAM HCL 2MG/2ML 2ml VIAL (1mg/ml) ONE (09:46)
[2025-01-14] MEDS ORDERED: ceFAZolin 2 GM/D5W50ml 50 ML IV ONE (09:52)
[2025-01-14] MEDS ORDERED: KETAMINE 50mg/ML 10ml Vial 10 ML ONE (09:56)
[2025-01-14] MEDS: BUPIVACAINE 0.25% INJ 50ML VIAL ONE (10:34)
[2025-01-14] MEDS ORDERED: ONDANSETRON HCL 4 MG/2 ML VIAL IV ONE (11:00)
[2025-01-14] MEDS ORDERED: HYDROmorphone HCL 2 MG/ML VL/or syr IV PRN (11:00)
[2025-01-14] MEDS: ACETAMINOPHEN IV 1000 MG/100ML (10MG/ML) IV ONE (11:27)
--- NOTE | 2025-01-14 12:11 | DVH ---
C-ARM FLUOROSCOPY: PROCEDURE: ORIF right ankle FLUOROSCOPY TIME: 20.1 seconds DAP: 0.31 mgy FINDINGS: Spot intraoperative C arm radiographs demonstrating ORIF right ankle. IMPRESSION: Please refer to surgical report for detailed findings.
[2025-01-14] MEDS ORDERED: cloNIDine 0.2 mg/24hr 7DAY PATCH TD SCH (12:15)
[2025-01-14] MEDS ORDERED: cloNIDine 0.2 mg/24hr 7DAY PATCH TD ONE (12:15)
--- NOTE | 2025-01-14 12:24 | DVHPN2 ---
Progress Note Date Seen: Jan 14, 2025 Medical Necessity Reason Pt with a Central, PICC or Fol: Yes The following are medically ne: [place] Catheter Reason for [place] catheter: Strict I&O Subjective Patient reports: No new complaints Review of Systems: HEENT:Normal, CVS:Normal, RESPIRATORY:Normal, GI:Normal, :Normal, MSK:Normal, NEURO:Normal Objective vital signs Vital Sign Date Time Temp Pulse Resp B/P (MAP) Pulse Ox O2 Delivery O2 Flow Rate FiO2 01/14/25 10:48 87 14 100 Mask 4.0 01/14/25 10:48 97.5 168/82 (110) 97.5 01/14/25 08:00 28 Total Intake and Output 01/13/25 01/13/25 01/14/25 15:00 23:00 07:00 Intake Total 120 ml 580 ml 230 ml Balance 120 ml 580 ml 230 ml medications Current Medications Medications Dose Ordered Sig/Cris Route Start Time Stop Time Status Last Admin Dose Admin Sodium Chloride 1,000 ml @ 60 mls/hr [id number] IV 01/13/25 11:30 01/14/25 05:47 60 MLS/HR Acetaminophen/ Hydrocodone Bitart 1 tab Q4HP PRN PO 01/13/25 11:30 01/13/25 19:26 1 TAB Ondansetron HCl 4 mg Q4HP PRN IV 01/13/25 11:30 Acetaminophen 650 mg Q6HP PRN PO 01/13/25 11:30 Morphine Sulfate 2 mg Q4HPRN PRN IV 01/13/25 11:30 01/14/25 09:02 2 MG Enoxaparin Sodium 30 mg DAILY SC 01/13/25 11:30 01/13/25 12:14 30 MG Hydralazine HCl 10 mg Q6HP PRN IV 01/13/25 12:00 01/14/25 09:01 10 MG Albuterol 2.5 mg Q4HPRN PRN NEB 01/13/25 12:00 Ipratropium [place] 0.5 mg Q4HPRN PRN NEB 01/13/25 12:00 Cefazolin Sodium 50 ml @ 100 mls/hr Q8HR IV 01/14/25 14:00 01/15/25 06:29 Examination: GENERAL:Normal, HEENT:Normal, NECK:Normal, LUNGS:Normal, CVS:Normal, ABDOMEN:Normal, MSK:Normal, MSK:Abnormal (right ankle dressing), SKIN:Normal, NEURO:Normal, :Normal laboratory and microbiology Laboratory Tests 01/14/25 06:22 Test 01/14/25 06:22 Range/Units Serum Glucose 112 H 74-106 mg/dL Problem List/Assessment/Plan Problem List/Assessment/Plan #1 s/p right ankle orif/revision: pain meds #2 chronic diastolic heart failure #3 htn: adjust meds #4 obesity #5 copd #6 acute on chronic resp failure #7 tobacco abuse: advised to quit, nicotine patch- time spent 11 mins #8 dementia advance care planning- full code- time spent 19 mins Plan discussed with: Patient, Daughter My Orders My Orders Orders - ALKA LYLES MD Procedure Category Date Status Time C Arm Fluoroscopy Up XY 01/14/25 Resulted To 60min 11:42 R Ankle 2 View Xray XY 01/14/25 Resulted 11:42 Hydromorphone PHA 01/14/25 Transmitted Injection (Dilaudid 12:15 Urinalysis LAB 01/14/25 Uncollected 12:15 Gabapentin Capsule PHA 01/14/25 Transmitted (Neurontin Capsule) 14:00 Citalopram Tablet PHA 01/15/25 Transmitted (Celexa Tablet) 10:00 Nicotine 21mg/24hr PHA 01/14/25 Transmitted (Nicoderm 21mg/24hr) 12:15 Nicotine 21mg/24hr PHA 01/15/25 Transmitted (Nicoderm 21mg/24hr) 10:00 Clonidine 0.2mg/24hr PHA 01/14/25 Transmitted 7day Patc (Catapres 12:15 Clonidine 0.2mg/24hr PHA 01/14/25 Transmitted 7day Patc (Catapres 12:15 Losartan Tablet PHA 01/14/25 Transmitted (Cozaar Tablet) 12:15 Losartan Tablet PHA 01/15/25 Transmitted (Cozaar Tablet) 10:00 Complete Blood Count LAB 01/15/25 Verified 06:00 Comprehensive LAB 01/15/25 Verified Metabolic Panel 06:00 Date of Service: Jan 14, 2025 Billing Provider: ALKA LYLES MD Common Visit Codes: [id number] INP/OBS CARE(HIGH) Secondary Visit Codes: 74710-GOPDJ CHNG SMOKING >10MIN, [id number] CARE PLAN 30 MINUTES ALKA LYLES MD Jan 14, 2025 12:24
[2025-01-14] MEDS: GABAPENTIN 300 MG CAP PO SCH (13:23)
[2025-01-14] MEDS: NICOTINE 21MG/24 HR TOPICAL PATCH TD ONE (13:23)
[2025-01-14] MEDS: ceFAZolin 1GM/50ML 50 ML IV SCH (13:24)
[2025-01-14] MEDS: HYDROmorphone HCL 2 MG/ML VL/or syr IV PRN (13:24)
[2025-01-14] MEDS: LOSARTAN POTASSIUM 50 MG TAB PO ONE (13:24)
[2025-01-14 15:50] LABS: INR 0.98 (0.9-1.15); Prothrombin Time 10.4 sec (9.3-11.8)
[2025-01-14 16:07] LABS: Urine Protein, UAD Negative (Negative)
[2025-01-15] VITALS (7 sets, daily range): BP systolic 129–163; BP diastolic 75–96; PULSE 83–93; RESP 16–20; TEMP 98.1–98.5; O2SAT 93–100
[2025-01-15 06:40] LABS: Hematocrit 36.3 % (36.0-46.0); Hemoglobin 12.6 g/dL (12.2-16.2); Mean Corpuscular Hemoglobin 32.0 pg (28.0-32.0); Mean Corpuscular Volume 92.4 fL (80.0-100.0); Nucleated Red Blood Cells % 0.1 %
[2025-01-15 06:59] LABS: Albumin 3.6 g/dL (3.2-4.8); Alkaline Phosphatase 109 U/L (46-116); Anion Gap 6 (5-15); BUN/Creatinine Ratio 11.4 (10.0-20.0); Calcium 9.5 mg/dL (8.7-10.4); Carbon Dioxide 29 mmol/L (20-31); Chloride 106 mmol/L (98-107); Sodium 141 mmol/L (136-145)
[2025-01-15 07:00] LABS: Bilirubin, Total 0.4 mg/dL (0.2-1.0)
[2025-01-15 07:03] LABS: Alanine Aminotransferase < 9 U/L (7-40); Blood Urea Nitrogen 8 mg/dL (9-23); Glucose 145 mg/dL (74-106); Potassium 3.5 mmol/L (3.5-5.1); Total Protein 5.6 g/dL (5.7-8.2)
[2025-01-15] MEDS: ALBUTEROL SULF 2.5 MG/0.5ML(0.5%) NEB SOLN NEB PRN (07:22)
[2025-01-15] MEDS: IPRATROPIUM BROM 0.5 MG/2.5ML INH SOL NEB PRN (07:22)
--- NOTE | 2025-01-15 08:18 | DVHPN2 ---
Progress Note Date Seen: Jan 15, 2025 Medical Necessity Reason Pt with a Central, PICC or Fol: Yes The following are medically ne: [place] Catheter Reason for [place] catheter: Strict I&O Objective vital signs Vital Sign Date Time Temp Pulse Resp B/P (MAP) Pulse Ox O2 Delivery O2 Flow Rate FiO2 01/15/25 07:28 88 16 98 01/15/25 07:22 Nasal Cannula 3.0 01/15/25 07:22 32 01/15/25 05:54 152/70 01/15/25 05:00 98.1 98.1 Total Intake and Output 01/14/25 01/14/25 01/15/25 15:00 23:00 07:00 Intake Total 465 ml 450 ml 650 ml Output Total 1000 ml Balance 465 ml 450 ml -350 ml medications Current Medications Medications Dose Ordered Sig/Cris Route Start Time Stop Time Status Last Admin Dose Admin Acetaminophen/ Hydrocodone Bitart 1 tab Q4HP PRN PO 01/13/25 11:30 01/14/25 21:31 1 TAB Ondansetron HCl 4 mg Q4HP PRN IV 01/13/25 11:30 Acetaminophen 650 mg Q6HP PRN PO 01/13/25 11:30 Enoxaparin Sodium 30 mg DAILY SC 01/13/25 11:30 01/13/25 12:14 30 MG Hydralazine HCl 10 mg Q6HP PRN IV 01/13/25 12:00 01/15/25 05:54 10 MG Albuterol 2.5 mg Q4HPRN PRN NEB 01/13/25 12:00 01/15/25 07:22 2.5 MG Ipratropium [place] 0.5 mg Q4HPRN PRN NEB 01/13/25 12:00 01/15/25 07:22 0.5 MG Hydromorphone HCl 1 mg Q4HPRN PRN IV 01/14/25 12:15 01/15/25 05:08 1 MG Gabapentin 300 mg TID PO 01/14/25 14:00 01/15/25 05:07 300 MG Citalopram Hydrobromide 20 mg DAILY PO 01/15/25 10:00 Nicotine 1 patch DAILY TD 01/15/25 10:00 Losartan Potassium 50 mg DAILY PO 01/15/25 10:00 Clonidine HCl 0.1 mg BID PRN PO 01/14/25 13:15 Examination: GENERAL:Normal, MSK:Abnormal laboratory and microbiology Laboratory Tests 01/15/25 06:03 Test 01/15/25 06:03 Range/Units Serum Glucose 145 H 74-106 mg/dL Microbiology Date/Time Source Procedure Growth Status 01/13/25 21:00 Nose MRSA Screen - Final Complete Problem List/Assessment/Plan Problem List/Assessment/Plan 84 year old female who is s/p ORIF right ankle POD 1 1. pain control 2. NWB 3. physical therapy 4. continue with splint for 2 weeks 5. DVT ppx 6. clear for d/c from ortho standpoint 7. follow up in 2 weeks at [facility] ortho clinic Plan discussed with: Patient Date of Service: Jan 15, 2025 Billing Provider: LUCERO CANELA MD Common Visit Codes: NOT BILLABLE SHANTEL ETIENNE NP Jan 15, 2025 08:18
[2025-01-15] MEDS: NICOTINE 21MG/24 HR TOPICAL PATCH TD SCH (09:15)
[2025-01-15] MEDS: LOSARTAN POTASSIUM 50 MG TAB PO SCH (09:16)
[2025-01-15] MEDS: CITALOPRAM HYDROBR 20 MG TAB PO SCH (09:16)
--- NOTE | 2025-01-15 11:34 | DVHDS2 ---
Discharge Summary Date of Admission Jan 13, 2025 at 11:30 Date of Discharge: Jan 15, 2025 Labs/Diagnostic Data: Laboratory Results Test 01/15/25 06:03 01/14/25 15:47 01/14/25 15:10 White Blood Count 9.7 10^3/uL (4.4-10.8) Red Blood Count 3.93 10^6/uL (4.0-5.20) Hemoglobin 12.6 g/dL (12.2-16.2) Hematocrit 36.3 % (36.0-46.0) Mean Corpuscular Volume 92.4 fL (80.0-100.0) Mean Corpuscular Hemoglobin 32.0 pg (28.0-32.0) Mean Corpuscular Hemoglobin Concent 34.6 g/dL (32.0-36.0) Red Cell Distribution Width 15.1 % (11.8-14.3) Platelet Count 169 10^3/uL (140-450) Mean Platelet Volume 8.3 fL (6.9-10.8) Neutrophils (%) (Auto) 86.8 % (37.0-80.0) Lymphocytes (%) (Auto) 8.1 % (10.0-50.0) Monocytes (%) (Auto) 4.9 % (0.0-12.0) Eosinophils (%) (Auto) 0.0 % (0.0-7.0) Basophils (%) (Auto) 0.2 % (0.0-2.0) Neutrophils # (Auto) 8.4 10 ^3/uL (1.6-8.6) Lymphocytes # (Auto) 0.8 10 ^3/uL (0.4-5.4) Monocytes # (Auto) 0.5 10 ^3/uL (0-1.3) Eosinophils # (Auto) 0 10 ^3/uL (0-0.8) Basophils # (Auto) 0 10 ^3/uL (0-0.2) Nucleated Red Blood Cells 0.1 % Sodium Level 141 mmol/L (136-145) Potassium Level 3.5 mmol/L (3.5-5.1) Chloride Level 106 mmol/L (98-107) Carbon Dioxide Level 29 mmol/L (20-31) Anion Gap 6 (5-15) Blood Urea Nitrogen 8 mg/dL (9-23) Creatinine 0.70 mg/dL (0.550-1.02) Glomerular Filtration Rate Calc 86 mL/min (>90) BUN/Creatinine Ratio 11.4 (10.0-20.0) Serum Glucose 145 mg/dL (74-106) Calcium Level 9.5 mg/dL (8.7-10.4) Total Bilirubin 0.4 mg/dL (0.2-1.0) Aspartate Amino Transferase (AST) 9 U/L (13-40) Alanine Aminotransferase (ALT) < 9 U/L (7-40) Alkaline Phosphatase 109 U/L (46-116) Total Protein 5.6 g/dL (5.7-8.2) Albumin 3.6 g/dL (3.2-4.8) Urine Color Colorless (Yellow) Urine Clarity Clear (Clear) Urine pH 7.5 (5.0-9.0) Urine Specific [place] 1.011 (1.001-1.035) Urine Protein Negative (Negative) Urine Ketones Negative (Negative) Urine Blood Negative /uL (Negative) Urine Nitrite Negative (Negative) Urine Bilirubin Negative (Negative) Urine Urobilinogen Normal mg/dL (Negative) Urine Leukocyte Esterase Negative /uL (Negative) Urine RBC 1 /hpf (0 - 4) Urine Microscopic WBC /HPF (0-5) Urine Squamous Epithelial Cells None seen /hpf (<5) Urine Bacteria None seen /hpf (None Seen) Urine Glucose Normal mg/dL (Normal) Prothrombin Time 10.4 sec (9.3-11.8) Prothrombin Time INR 0.98 (0.9-1.15) Other Laboratory Tests 01/15/25 06:03 Brief Hx & Hospital Course: SEE DICTATED NOTE Condition at Discharge: Fair Final Diagnosis/Problems List ANKLE SURGERY Discharge Disposition: Hospice - Home Discharge Instruct/Medications Diet: Cardiac 2g Na,low cholest Activity: No Restrictions, As Tolerated Follow Up/Referral: FU WITH HOSPICE/ORTHO Medications: PER HOSPICE LEAVE [place] IN Scheduled Atorvastatin Calcium (Atorvastatin Calcium), 1 TAB PO DAILY, (Reported) Clonidine Hydrochloride (Clonidine Hcl), 0.2 MG PO DAILY, (Reported) Escitalopram Oxalate (Lexapro), 1 TAB PO DAILY, (Reported) Fentanyl (Fentanyl), 25 MCG TD Q72HR, (Reported) Fluticasone-Salmeterol ([place]hub 250-50 Mcg/Dose), 1 AER IN BID, (Reported) Furosemide (Lasix), 40 MG PO DAILY, (Reported) Gabapentin (Gabapentin), 300 MG PO TID, (Reported) Levofloxacin Hemihydrate (Levaquin 500 Mg), 1 TAB PO DAILY Losartan Potassium (Losartan Potassium), 1 TAB PO DAILY, (Reported) Methylprednisolone (Medrol Dosepak), 4 MG PO UD Metoprolol Tartrate (Metoprolol Tartrate), 50 MG PO PRN, (Reported) Pantoprazole Sodium Sesquihydr (Protonix), 40 MG PO DAILY, (Reported) Scheduled PRN Albuterol Sulfate (Albuterol Sulfate Hfa), 108 MCG IN Q4HPRN PRN Lorazepam (Ativan), 1 TAB PO Q6HP PRN for ANXIETY, (Reported) Ondansetron Odt 4MG Tab (Zofran Po), 4 MG PO Q6HPRN PRN for NAUSEA / VOMITING, (Reported) Oxycodone W/ Acetaminophen (Percocet 5/325MG), 2 TAB PO Q4HP PRN for PAIN SCALE 7 THRU 10, (Reported) Discharge Statement: "Patient was advised to return to the ER or call 911 if any headaches, dizziness, shortness of breath, chest pain, abdominal pain, bleeding, fevers, or worsening of medical condition. Patient was counseled about treatment plan, medications, possible side effects, patientverbalized understanding. All questions were answered to the best of my ability. This discharge took greater then 30 minutes in planning, reviewing documentation, counseling the patient, and discussing with other team members." ASSESSMENT ASSESSMENT Assessment ANKLE SURGERY Date of Service: Jan 15, 2025 Billing Provider: ALKA LYLES MD Common Visit Codes: 03237-RVD/OBS DISCH DAY >30min ALKA LYLES MD Jan 15, 2025 11:34
--- NOTE | 2025-01-15 11:48 | DVHDS ---
DATE OF DISCHARGE: 01/15/2025 HISTORY OF PRESENT ILLNESS: The patient is an 84-year-old lady who is admitted after she had a recent ankle fracture, for revision of surgery. The patient has a history of COPD, hypertension, hyperlipidemia, congestive heart failure, and dementia. HOSPITAL COURSE: The patient underwent surgery by Dr. Campbell on 01/14/2025. The patient did well postoperatively. Dr. Campbell has now cleared the patient for discharge. She will be discharged under hospice to follow up with him as outpatient. FINAL DIAGNOSES: * Chronic diastolic heart failure. * Hypertension. * Obesity. * COPD. * Acute on chronic respiratory failure. * Tobacco abuse. * Dementia. * Status post right ankle ORIF/revision. * Hospice care. Time spent in discharge planning and review of plan with the patient, job service consultant, and nursing was 38 minutes. MD JACQUELIN Lehman/HARRIET TID: [id number] RECEIPT: [id number]
--- NOTE | 2025-01-15 15:51 | DVHOP2 ---
Operative Report - 2 Report Details Date: 01/14/25 Preop Diagnosis: Right ankle hardware loosening/ hx of polio/ osteoporosis Postop Diagnosis: as above Surgeon: Cristi Campbell MD Geography Department Chair: Messi FLORES Anesthesiologist: David SANDS Anesthesia: Regional Implant: Adrien Consent: The patient was informed of the risks and benefits of the procedure. These include but are not limited to complications of anesthesia, postoperative infection, incomplete relief of symptoms, recurrence of symptoms, damage to blood vessels, nerves and tendons, deep venous thrombosis, pulmonary embolism and possible need for repeat surgery in the future. Estimated Blood Loss: 2 cc Indications for Surgery: right ankle hardware loosening/ hx of ORIF 6 weeks ago/ osteoporotic bone Name of Procedure Performed 1. Revision right distal fibula open reduction internal fixation Procedure Details Procedure Details: HISTORY OF PRESENT ILLNESS: Risks/benefits/options and alternatives were discussed in length. Risks associated with anesthesia, infection, damage to nerves and blood vessels, and bleeding or blood clots. Problems after ankle fracture surgery include ankle joint stiffness, weakness, need for further surgery and arthritis. Possible complications after ankle fracture surgery include infection and problems with healing. PROCEDURE: After all potential complications and risks as well as risks and benefits of the above-mentioned procedure was discussed at length with the pa tient and family, informed consent was obtained. The lower extremity was then confirmed with the operating surgeon, the patient, the nursing staff and Department of Anesthesia. The patient was then transferred to preoperative area in the Operative Suite and placed on the operating room table in supine position. At this time, the anesthesia was performed. All bony prominences were well padded at this time. A nonsterile tourniquet was placed on the right upper thigh of the patient. lower extremity was sterilely prepped and draped in the usual sterile fashion. The lower extremity was then elevated and exsanguinated using Esmarch and tourniquet was then placed to 250 mmHg. Next, after all bony and soft tissue landmarks were identified, a 4 cm longitudinal incision was made directly over the lateral mal fracture on the right ankle. A sharp dissection was carefully taken down to the level of bone and plate taking care to protect the neurovascular structures. With manual traction and manipulation with bone reduction clamps we were able to reduce patient fracture. Loose screws were removed and replaced with new screws. Intraoperative fluoroscopy confirmed reduction. Patient medial side under live fluoroscopy demonstrated healing bone. It is too small a piece of bone to revise with a screw without further compromising the bone. Again, Fluoro scan was brought in to confirm placement of the screws. They were in good overall position and there was no lateralization of the joint. At this time, each wound was copiously irrigated and suctioned dry. The wounds were then closed using #2- 0 Vicryl suture in subcutaneous fashion followed by 3-0 nylon on the skin. A sterile dressing was applied consistent with Adaptic, 4x4s, Kerlix, and Webril. An ankle splint was then placed on the right lower extremity. The patient was transferred back to the [facility] and to the Postanesthetic Care Unit. The patient tolerated the procedure well. There were no complications. Condition Fair Disposition Still a Patient CRISTI CAMPBELL MD Jan 15, 2025 15:51
[2025-01-15] MEDS ORDERED: KETOROLAC TROMETH 30 MG/ML 1ML VIAL IV ONE (18:19)
== END 2025-01-15 18:20 | disposition hospice, home (50) | DRG 495 ==
LOC: ER 07:13 → OVERFLOW 11:30 → WEST WING 18:16
PROVIDERS: ADMIT Internal Medicine; ATTEND Internal Medicine
PROC: 0QWJ04Z Revision of Internal Fixation Device in Right Fibula, Open Approach (ICD-10-PCS; principal; 2025-01-14 09:54)
DX: T84.038A Mechanical loosening of other internal prosthetic joint, initial encounter (principal); J96.20 Acute and chronic respiratory failure, unspecified whether with hypoxia or hypercapnia; I50.32 Chronic diastolic (congestive) heart failure; J44.9 Chronic obstructive pulmonary disease, unspecified; E66.9 Obesity, unspecified; F03.90 Unspecified dementia, unspecified severity, without behavioral disturbance, psychotic disturbance, mood disturbance, and anxiety; Z51.5 Encounter for palliative care; E78.5 Hyperlipidemia, unspecified; I11.0 Hypertensive heart disease with heart failure; M81.0 Age-related osteoporosis without current pathological fracture; Z91.81 History of falling; Z88.8 Allergy status to other drugs, medicaments and biological substances; Z90.49 Acquired absence of other specified parts of digestive tract; Z82.49 Family history of ischemic heart disease and other diseases of the circulatory system; Z68.31 Body mass index [BMI] 31.0-31.9, adult; Z80.0 Family history of malignant neoplasm of digestive organs; Z72.0 Tobacco use; S82.851A Displaced trimalleolar fracture of right lower leg, initial encounter for closed fracture; Z82.3 Family history of stroke; X50.1XXA Overexertion from prolonged static or awkward postures, initial encounter; Y93.89 Activity, other specified; Y92.091 Bathroom in other non-institutional residence as the place of occurrence of the external cause; Y99.8 Other external cause status; Z79.899 Other long term (current) drug therapy
CPT/HCPCS: 36415; 71045; 73600; 76000; 80048; 80053; 81001; 85025; 85610; 87081; 93005; 94640; 96360; 96372; 97163; G0378; J0131; J1100; J1885; J2003; J2250; J2405; J2704; J3490

== ENCOUNTER 2025-04-14 20:17 | Emergency (ER) | payer OTHER ==
[~2025-04-14] VITALS: Ht 165.1 cm; Wt 90.7 kg
[~2025-04-14 20:17] MED LIST changes: +ATOR40TA52 PO; +CLON0.2D6 PO; +ESCI20TA PO; +FENT25DI2 TD; +FLUT1AER6 IN; +FURO1TAB31 PO; +GABA-1250 PO; +LORA-655 PO; +LOSA-534 PO; +METO-158 PO; +PANT40TA2 PO; +PERCOT PO; +ZOFR4T PO
[2025-04-14 20:25] VITALS: BP 180/80; RESP 18; TEMP 98.9; O2SAT 90
[2025-04-14] MEDS ORDERED: HYDROcodone-ACET 10/325MG TAB PO ONE (20:45)
[2025-04-14] MEDS ORDERED: ONDANSETRON ODT 4 MG TAB PO ONE (20:45)
[2025-04-14 20:52] VITALS: PULSE 96
--- NOTE | 2025-04-14 20:53 | ED.PDOC ---
History of Present Illness HPI Comments 84 y/o obese F is BIBA from private residence for c/c of nonradiating, left sided flank pain. Significant history for AFib, CHF, COPD, Dementia, and HTN. Endorsement of 3x day history of worsening pain following initial, unprovoked and atraumatic onset. Reports additional onset of nausea, lightheadedness, and 1x episode of diaphoresis, yesterday. Patient also comments on noticing her legs and feet swellings amidst compliancy with her CHF medications. No recent travel, sick contact, prior ailments, or additional pertinent events or history endorsed. Denial of any vomiting, diarrhea, constipation, urinary symptoms, fever, chills, or further associated symptoms. Per EMS personnel report, vitals were noted to have been stable and within normal limits, with exception of SpO2 of 88-90%RA. No interventions administered. Chief Complaint: Flank Pain Time Seen by MD: 20:30 Primary Care Provider: ZAINA Reviewed Notes: Nurses Notes, Atomic Physics Teacher Notes, Medications, Allergies Allergies: Coded Allergies: Iodine (Verified Allergy, Mild, RASH, 11/26/20) Home Meds Active Scripts Sulfamethoxazole W/Trimethopri (Bactrim Ds Tablet) 1 Tab Tb, 1 TAB PO BID for 7 Days, #14 TAB Prov:LOUISE AGARWAL MD 04/14/25 Albuterol Sulfate (Albuterol Sulfate Hfa) 108 Mcg/Act Aer, 108 MCG IN Q4HPRN PRN, #1 AER Prov:ELVA MAYA MD 09/19/24 Methylprednisolone (Medrol Dosepak) 4 Mg Jhony, 4 MG PO UD, #21 TAB UAD Prov:ELVA MAYA MD 09/19/24 Levofloxacin Hemihydrate (LEVAQUIN 500 MG) 500 Mg Tab, 1 TAB PO DAILY, #7 TAB Prov:ELVA MAYA MD 09/19/24 Reported Medications Fentanyl (Fentanyl) 25 Mcg/Hr Dis, 25 MCG TD Q72HR, DIS 01/14/25 Fluticasone-Salmeterol (Wixela Inhub 250-50 Mcg/Dose) 1 Aer Aer, 1 AER IN BID, AER 01/14/25 Lorazepam (Ativan) 0.5 Mg Tab, 1 TAB PO Q6HP PRN for ANXIETY, #30 TAB 01/14/25 Oxycodone W/ Acetaminophen (Percocet 5/325MG) 1 Tab Tb, 2 TAB PO Q4HP PRN for PAIN SCALE 7 THRU 10, #120 TAB 01/14/25 Ondansetron Odt 4MG Tab (ZOFRAN PO) 4 Mg Tb, 4 MG PO Q6HPRN PRN for NAUSEA / VOMITING, TAB ODT TAB-DISSOLVE IN MOUTH, THEN SWALLOW 01/14/25 Gabapentin (Gabapentin) 300 Mg Cap, 300 MG PO TID for 30 Days, MG 01/14/25 Pantoprazole Sodium Sesquihydr (Protonix) 40 Mg Tab, 40 MG PO DAILY, #30 TAB 01/14/25 Furosemide (Lasix) 40 Mg Tab, 40 MG PO DAILY, TAB 01/14/25 Atorvastatin Calcium (ATORVASTATIN CALCIUM) 40 Mg Tab, 1 TAB PO DAILY, #30 TAB 5 Refills 01/14/25 Escitalopram Oxalate (Lexapro) 20 Mg Tab, 1 TAB PO DAILY, #90 TAB 3 Refills 01/14/25 Metoprolol Tartrate (Metoprolol Tartrate) 50 Mg Tab, 50 MG PO PRN for 30 Days, MG 01/14/25 Clonidine Hydrochloride (Clonidine Hcl) 0.2 Mg/24 Hr Dis, 0.2 MG PO DAILY for 30 Days, MG 01/14/25 Losartan Potassium (Losartan Potassium) 50 Mg Tab, 1 TAB PO DAILY, #30 TAB 5 Refills 01/13/25 Information Source: Patient, Emergency Med Personnel Mode of Arrival: EMS Past Medical History PAST MEDICAL HISTORY: AFIB, CHF, COPD, Dementia, HTN Past Medical History (Other): Chronic respiratory failure Obesity Surgical History (Other): Status post right ankle ORIF/revision. 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 Family History Family History: Reviewed,noncontributory to illness, Unknown Social History Smoker: Cigarettes Alcohol: Denies ETOH Use, Unknown Drugs: Denies Drug Use Lives In: Other (Hospice care ) All Other Systems: Reviewed and Negative (Comprehensive review of systems are negative unless stated in HPI) Physical Exam General Appearance: No Apparent Distress, Obese, Other (elderly appearing ) HEENT: Normal ENT Inspection, Pharynx Normal, TMs Normal Neck: Full Range of Motion, Non-Tender, Normal, Normal Inspection Respiratory: Chest Non-Tender, Lungs Clear, No Accessory Muscle Use, No Respiratory Distress, Normal Breath Sounds Cardiovascular: Irregular (rhythm ), No Edema, No JVD, No Murmur, No Gallop, Normal Peripheral Pulses, Other (regular rate ) Breast Exam: Deferred Gastrointestinal: No Organomegaly, Non Tender, No Pulsatile Mass, Normal Bowel Sounds, Soft Genitalia: Deferred Pelvic: Deferred Rectal: Deferred Extremities: No calf tenderness, Normal capillary refill, Normal inspection, Normal range of motion, Non-tender, No pedal edema Musculoskeletal : Location: Left Extremity Location: Other (flank ) Apperance: Normal, Tenderness: Mild Neurologic: Alert, calculation clerk II-XII nml as Tested, No Motor Deficits, Normal Affect, Normal Mood, No Sensory Deficits Cerebellar Function: Normal Reflexes: Normal Skin: Dry, Normal Color, Warm Lymphatic: No Adenopathy Was a procedure done? Was a procedure done?: No EKG EKG : Pulse Rate (adult): 96 [place]: Normal Cardiac Rhythm: Afib Block: None Hypertrophy: None ST: Normal Differential Dx Considerations may include: nephrolithiasis, cystitis, pyelonephritis, musculoskeletal pain, viral syndrome, among others X-Ray, Labs, Meds, VS Vital Signs Date Time Temp Pulse Resp B/P (MAP) Pulse Ox O2 Delivery O2 Flow Rate FiO2 04/14/25 20:52 96 04/14/25 20:32 96 04/14/25 20:25 98.9 91 18 180/80 90 98.9 Lab Test 04/14/25 21:48 04/14/25 20:50 Range/Units Troponin I High Sensitivity 7 7 </=34 ng/L White Blood Count 9.4 4.4-10.8 10^3/uL Red Blood Count 5.00 4.0-5.20 10^6/uL Hemoglobin 15.5 12.2-16.2 g/dL Hematocrit 45.6 36.0-46.0 % Mean Corpuscular Volume 91.1 80.0-100.0 fL Mean Corpuscular Hemoglobin 31.0 28.0-32.0 pg Mean Corpuscular Hemoglobin Concent 34.0 32.0-36.0 g/dL Red Cell Distribution Width 14.7 H 11.8-14.3 % Platelet Count 285 140-450 10^3/uL Mean Platelet Volume 8.1 6.9-10.8 fL Neutrophils (%) (Auto) 75.8 37.0-80.0 % Lymphocytes (%) (Auto) 17.0 10.0-50.0 % Monocytes (%) (Auto) 5.4 0.0-12.0 % Eosinophils (%) (Auto) 1.2 0.0-7.0 % Basophils (%) (Auto) 0.6 0.0-2.0 % Neutrophils # (Auto) 7.1 1.6-8.6 10 ^3/uL Lymphocytes # (Auto) 1.6 0.4-5.4 10 ^3/uL Monocytes # (Auto) 0.5 0-1.3 10 ^3/uL Eosinophils # (Auto) 0.1 0-0.8 10 ^3/uL Basophils # (Auto) 0.1 0-0.2 10 ^3/uL Nucleated Red Blood Cells 0.1 % Sodium Level 141 136-145 mmol/L Potassium Level 3.3 L 3.5-5.1 mmol/L Chloride Level 103 98-107 mmol/L Carbon Dioxide Level 33 H 20-31 mmol/L Anion Gap 5 5-15 Blood Urea Nitrogen 8 L 9-23 mg/dL Creatinine 0.67 0.550-1.02 mg/dL Glomerular Filtration Rate Calc 87 >90 mL/min BUN/Creatinine Ratio 11.9 10.0-20.0 Serum Glucose 100 74-106 mg/dL Calcium Level 9.1 8.7-10.4 mg/dL Total Bilirubin 0.5 0.2-1.0 mg/dL Aspartate Amino Transferase (AST) 15 13-40 U/L Alanine Aminotransferase (ALT) 13 7-40 U/L Alkaline Phosphatase 174 H 46-116 U/L B-Type Natriuretic Peptide 144.89 0-100 pg/mL Total Protein 6.8 5.7-8.2 g/dL Albumin 4.0 3.2-4.8 g/dL Lipase 21 12-53 U/L Time of 1ST Reevaluation: 21:00 Reevaluation 1ST: Unchanged Patient Education/Counseling: Diagnosis, Treatment Family Education/Counseling: No Family Present SEPSIS Sepsis Screen Date sepsis recognized/suspect: Apr 14, 2025 Time Sepsis recognized/suspect: 2027 Recent Procedure: No On Antibiotic Therapy: No Respiratory Rate >20: No Heart Rate >90: Yes Temp<36 C (96.8 F) or >38.3 C: No SBP <90 or MAP <65 mmHG: No New Acute Mental Status Change: No Is the patient on CPAP, BIPAP,: No Physician Orders Electrocardigram (04/14/25 20:37) Urinalysis (04/14/25 20:36) Ct Ab Pel Wo Con-No Oral Or Iv (04/14/25 20:36) Chest Xray 1 View (04/14/25 20:36) Vital Signs Date Time Temp Pulse Resp B/P (MAP) Pulse Ox O2 Delivery O2 Flow Rate FiO2 04/14/25 20:52 96 04/14/25 20:32 96 04/14/25 20:25 98.9 91 18 180/80 90 98.9 Laboratory Tests Test 04/14/25 20:50 White Blood Count 9.4 10^3/uL (4.4-10.8) Departure 1 Departure Time of Disposition: 23:00 Impression: Primary Impression: Left flank pain Disposition: HOME / SELF CARE / HOMELESS Condition: Stable e-Prescriptions Sulfamethoxazole W/Trimethopri (Bactrim Ds Tablet) 1 Tab Tb 1 TAB PO BID for 7 Days, #14 TAB Prov: LOUISE AGARWAL MD 04/14/25 Discharged With: Self Critical Care Note Critical Care Time?: No Stability Stability form required: No Heart Score Heart Score: Heart Score Response (Comments) Value History N/A 0 EKG N/A 0 Age N/A 0 Risk Factors N/A 0 Troponin N/A 0 Total 0 I personally scribed for LOUISE AGARWAL MD ([email or web address]) on 04/14/25 at 20:52. Electronically submitted by George Beltran ([email or web address]). LOUISE AGARWAL MD Apr 14, 2025 20:52
[2025-04-14 21:19] LABS: Hematocrit 45.6 % (36.0-46.0); Hemoglobin 15.5 g/dL (12.2-16.2); Mean Corpuscular Hemoglobin 31.0 pg (28.0-32.0); Mean Corpuscular Volume 91.1 fL (80.0-100.0); Nucleated Red Blood Cells % 0.1 %
--- NOTE | 2025-04-14 21:27 | DVH ---
EXAM: CT CT AB PEL WO CON-NO ORAL OR IV INDICATION: left flank pain TECHNIQUE: Volumetric multidetector CT images of the abdomen and pelvis were obtained without contras t. All CT scans at this facility use dose modulation, iterative reconstruction, and/or weight based d osing when appropriate to reduce radiation dose to as low as reasonably achievable. COMPARISON: CT ABD PELVIS WO CONTRAST on DOS: 01/04/21 FINDINGS: [LOWER CHEST]: The partially visualized lung bases are clear without a pleural effusion. The cardiac size is normal without pericardial effusion. coronary artery calcifications. Lipomatous hypertrophy o f the inter atrial septum and fatty hypertrophy along the right ventricle epicardial space [LIVER]: Small area of hypoattenuation along the falciform ligament, which is statistically most like ly a small amount of fatty infiltration. [GALLBLADDER AND BILIARY TREE]: To [SPLEEN]: Unremarkable. [PANCREAS]: Unremarkable. [ADRENAL GLANDS]: Unremarkable [KIDNEYS]: No hydronephrosis. No nephroureterolithiasis. [BLADDER]: Unremarkable for the degree distention. [REPRODUCTIVE ORGANS]: Indeterminate oval high attenuating bartholin gland cyst located below of the level of the pubic symphysis along the left anterior lateral vaginal canal. Consider direct visualiza tion if clinically indicated and referral to gynecology if symptomatic. [BOWEL/MESENTERY]: Stomach is normal. No CT evidence of bowel obstruction. mild stool burden. [ASCITES]: Absent [LYMPHADENOPATHY]: No pathologically enlarged lymph nodes by CT size criteria [VASCULATURE]: No aneurysmal dilatation. [ABDOMINAL WALL]: Left anterior chest electronic device [MUSCULOSKELETAL]: No acute fracture or aggressive focal osseous lesion. Multifocal degenerative toney ge of the visualized spine. posterior fusion hardware of the lumbar spine. Fatty atrophy of the righ t gluteus minimus muscle belly. IMPRESSION: 1. No CT evidence of an acute abdominal/pelvic process. 2. No hydronephrosis or nephroureterolithiasis. 3. Indeterminate oval high attenuating bartholin gland cyst located below of the level of the pubic s ymphysis along the left anterior lateral vaginal canal. 4. Consider direct visualization if clinically indicated and referral to gynecology if symptomatic.
[2025-04-14 21:32] LABS: Alanine Aminotransferase 13 U/L (7-40); Albumin 4.0 g/dL (3.2-4.8); Anion Gap 5 (5-15); BUN/Creatinine Ratio 11.9 (10.0-20.0); Calcium 9.1 mg/dL (8.7-10.4); Chloride 103 mmol/L (98-107); Glucose 100 mg/dL (74-106); Lipase 21 U/L (12-53); Sodium 141 mmol/L (136-145); Total Protein 6.8 g/dL (5.7-8.2)
--- NOTE | 2025-04-14 21:32 | DVH ---
CHEST RADIOGRAPH Indication: chest pain Technique: Single frontal view of the chest was obtained COMPARISON: XY CHEST PORTABLE on DOS: 01/13/25, XY CHEST PORTABLE on DOS: 12/24/24, XY CHEST PORTABLE on DOS: 11/28/24, XY CHEST PORTABLE on DOS: 11/28/24, XY CHEST PORTABLE on DOS: 09/18/24 FINDINGS: Lungs and pleural spaces are clear. Cardiac silhouette is enlarged. No pulmonary edema. Bones and sof t tissues demonstrate no significant abnormality. IMPRESSION: No acute disease. Stable cardiomegaly.
[2025-04-14 21:33] LABS: Bilirubin, Total 0.5 mg/dL (0.2-1.0)
[2025-04-14 21:49] LABS: Alkaline Phosphatase 174 U/L (46-116); Blood Urea Nitrogen 8 mg/dL (9-23); Carbon Dioxide 33 mmol/L (20-31); Potassium 3.3 mmol/L (3.5-5.1)
[2025-04-14] MEDS ORDERED: BACDST PO (22:49)
[2025-04-14] MEDS ORDERED: POTASSIUM CHL 20 Meq TABLET PO ONE (23:00)
[2025-04-14] MEDS ORDERED: SULFAMETHOX W/TRIMETH(800/160MG) DS TAB PO ONE (23:00)
--- NOTE | 2025-04-15 06:29 | ECG ---
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
== END 2025-04-15 04:27 | disposition left against medical advice (07) ==
LOC: ER 20:17 → EDBD 20:17 → EDUNIT# 20:17 → ER 04-15 04:27
DX: R10.9 Unspecified abdominal pain (principal); I11.0 Hypertensive heart disease with heart failure; I50.9 Heart failure, unspecified; E66.9 Obesity, unspecified; F03.90 Unspecified dementia, unspecified severity, without behavioral disturbance, psychotic disturbance, mood disturbance, and anxiety; J44.9 Chronic obstructive pulmonary disease, unspecified; I48.91 Unspecified atrial fibrillation; F17.210 Nicotine dependence, cigarettes, uncomplicated; Z79.899 Other long term (current) drug therapy; Z98.890 Other specified postprocedural states; Z88.8 Allergy status to other drugs, medicaments and biological substances
CPT/HCPCS: 36415; 71045; 74176; 80053; 83690; 83880; 84484; 85025; 93005